=== PATIENT | female | born 1945 | race Caucasian/White ===

== ENCOUNTER 2016-04-15 16:45 | Observation (INO) ==
[2016-04-15] MEDS ORDERED: Ipratropium/Albuterol Neb 3 ML IH ONE (16:47)
--- NOTE | 2016-04-15 16:50 | Emergency Department Note ---
Disposition Clinical Impression: Wedge compression fracture of T8 vertebra Qualifiers: Encounter type: initial encounter Fracture type: closed Qualified Code(s): S22.060A - Wedge compression fracture of T7-T8 vertebra, initial encounter for closed fracture Disposition: Admitted As Inpatient Condition: Good Referrals: NO,PCP [Non-Partnered Physician] - Forms: ED Satisfaction Letter Time of Disposition: 19:43 Fall HPI - General Chief Complaint: ED Fall Stated Complaint: FALL Time Seen by Provider: 04/15/16 16:48 Source: patient, EMS Mode of arrival: EMS Limitations: no limitations Nursing Notes Reviewed: Yes Vital Signs Reviewed: Yes - History of Present Illness HPI Narrative: 70-year-old has history of Parkinson's who was getting in his van was up about 2 feet off the ground and fell backwards onto concrete. She gets severe back pain. No loss of consciousness. No shortness of breath. Patient does have a history of COPD oxygen was little bit low so he is placed on nasal cannula. 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 Fall From: from height (distance) (2 feet) Place Fall Occurred: street Loss of Consciousness: none Prolonged Down Time?: no Symptoms Prior to Fall: none - Related Data Previous Rx's Medication Instructions Recorded OxyCODONE/APAP 5/325 [Percocet 1 each PO Q6HR PRN #6 tablet 12/04/15 5/325] Allergies Allergy/AdvReac Type Severity Reaction Status Date / Time No Known Allergies Allergy Verified 12/04/15 19:16 Constitutional: Denies: fever, chills, weakness, weight change Eyes: Denies: eye pain, eye discharge, vision change ENT ED: Denies: ear pain, throat pain, dental pain, hearing loss, epistaxis, congestion, dysphagia Cardiovascular: Denies: chest pain, palpitations, dyspnea on exertion, edema, syncope Respiratory: Denies: cough, dyspnea, wheezes, hemoptysis, stridor Gastrointestinal: Denies: abdominal pain, nausea, vomiting, diarrhea, constipation, hematemesis, melena, hematochezia Genitourinary: Denies: dysuria, frequency, hematuria, discharge Musculoskeletal: Reports: back pain. Denies: neck pain, arthralgia, myalgia Integumentary: Denies: rash, abrasion, lesions Neurological: Denies: headache, weakness, numbness, paresthesias, confusion, abnormal gait, vertigo Psychiatric: Denies: anxiety, depression, suicidal thoughts, homicidal thoughts , auditory hallucinations, visual hallucinations Endocrine: Denies: fatigue Hematological/Lymphatic: Denies: easy bleeding, easy bruising Allergic/Immunologic: Denies: facial swelling, urticaria Fall PMH - Past Medical History Medical history: Reports: atrial fibrillation, COPD, CVA, diabetes, hyperlipidemia, hypertension, thyroid disease Surgical history: Reports: herniorrhaphy, orthopedic, other (back surgery), other (dental extraction) Psychiatric history: Reports: anxiety, depression - Social History Smoking Status: Never smoker Alcohol use: Reports: none Drug use: Reports: none Physical Exam - General Limitations: no limitations General appearance: alert, in no apparent distress - Head Head exam: atraumatic, normocephalic, normal inspection - Eye Eye exam: Present: normal appearance, PERRL, EOMI - ENT ENT exam: normal exam, normal oropharynx, mucous membranes moist - Neck Neck exam: Present: normal inspection, full ROM, trachea midline - Chest Chest inspection: Present: normal inspection, symmetric chest wall rise - Respiratory Respiratory exam: Present: wheezes - Cardiovascular Cardiovascular exam: Present: regular rate, normal rhythm, normal heart sounds - Abdominal Exam Abdominal exam: Present: soft, Non-Tender. Absent: tenderness, distention, guarding, rebound, rigidity - Expanded Lower Extremity Exam Neurovascular/Tendon exam: Absent: motor deficit, sensory deficit, tendon deficit Gait: not tested/not observed - Back Exam Back exam: Present: normal inspection, full ROM. Absent: tenderness - Neurological Exam Neurological exam: Present: alert, oriented X3 - Psychiatric Psychiatric exam: Present: normal affect, normal mood - Skin Skin exam: Present: warm, dry, intact, normal color Course - Reevaluation(s) Reevaluation #1: 70-year-old history of Parkinson's who is unsteady on his feet has had multiple falls in recent weeks felt today back onto his back. He's got an acute T8 compression fracture. He is not able to get up and get around. There is no retropulsion of fragments. He may require extended care facility. Time: 19:42 - Consultations Consultation #1: Discussed with demetrio Knight. Time: 19:41 Vital Signs Temperature 97.6 F 04/15/16 16:50 Pulse Rate 81 04/15/16 16:50 Respiratory Rate 20 04/15/16 16:50 Blood Pressure 140/80 04/15/16 16:50 O2 Sat by Pulse Oximetry 96 04/15/16 16:50 Temperature 97.6 F 04/15/16 16:50 Pulse Rate 84 04/15/16 19:19 Respiratory Rate 18 04/15/16 19:19 Blood Pressure 151/66 04/15/16 19:19 O2 Sat by Pulse Oximetry 94 L 04/15/16 19:19 Oxygen Delivery Oxygen Delivery Nasal Cannula Fall - Radiology Data Radiology results reviewed: Yes I reviewed the patient's radiology results. Cervical Spine CT 04/15/16 16:47 IMPRESSION: 1. No evidence of an acute cervical spine fracture. D/ / 04/15/2016 18:04:05 Baudilio Reynolds MD / matt Interpreting Provider: Baudilio Reynolds MD Head CT 04/15/16 16:47 IMPRESSION: No acute intracranial abnormality. D/ / Jamal Arellano MD / Jamal Arellano MD Interpreting Provider: Jamal Arellano MD Lumbar Spine CT 04/15/16 16:47 IMPRESSION: 1. No acute findings of the lumbar spine. 2. Mild degenerative disc disease as above. D/ / Alonso Shaw MD / Alonso Shaw MD Interpreting Provider: Alonso Shaw MD Thoracic Spine CT 04/15/16 16:47 IMPRESSION: 1. Acute T8 superior endplate fracture that extends out anteriorly through the T7-T8 osteophyte. No retropulsion of fracture fragments into the spinal canal. 2. Chronic T12 fracture with approximately 70% loss of vertebral body height. 3. Subacute posterior right 10th rib fracture. D/ / 04/15/2016 17:58:11 Baudilio Reynolds MD / matt Interpreting Provider: Baudilio Reynolds MD
[2016-04-15] MEDS ORDERED: Naloxone 0.4 MG/ML INJ IVP PRN (22:59)
--- NOTE | 2016-04-15 22:59 | Internal Med History&Physical ---
Date of Encounter: 04/15/16 Time of Encounter: 22:30 Assessment and Plan (1) Wedge compression fracture of T8 vertebra Current visit: Yes Status: Acute No obvious neurological deficits. Will obtain MRI of the thoracic spine. Consult orthopedics / Spine creative consultant for possible kyphoplasty. Opiates for pain relief. Rest Qualifiers: Encounter type: initial encounter Fracture type: closed Qualified Code(s) : S22.060A - Wedge compression fracture of T7-T8 vertebra, initial encounter for closed fracture (2) Atrial fibrillation Current visit: Yes Status: Chronic Rate controlled. Continue home meds, when verified Qualifiers: Atrial fibrillation type: chronic Qualified Code(s): I48.2 - Chronic atrial fibrillation (3) Chronic anticoagulation Current visit: Yes Status: Chronic On apixaban. Will hold, for possible intervention. (4) Parkinson disease Current visit: Yes Status: Chronic Continue home meds, after verified (5) Hypothyroidism Current visit: Yes Status: Chronic Continue synthroid at home dose Qualifiers: Hypothyroidism type: unspecified Qualified Code(s): E03.9 - Hypothyroidism , unspecified (6) ALEXANDER (obstructive sleep apnea) Current visit: Yes Status: Chronic Pt is non-compliant (7) Hypertension Current visit: Yes Status: Chronic Continue home meds Qualifiers: Hypertension type: essential hypertension Qualified Code(s): I10 - Essential (primary) hypertension (8) Diabetes mellitus Current visit: Yes Status: Chronic started sliding scale insulin Qualifiers: Diabetes mellitus type: type 2 Diabetes mellitus complication status: with unspecified complications 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 Fernandez is a 70 year old female with history of Parkinson's disease, atrial fibrillation on apixban (eliquis), COPD, CVA, diabetes, hyperlipidemia, hypertension, hypothyroidism and ALEXANDER - non compliant with CPAP, presented to the ER after a h/o fall with no LOC. Apparently she was getting in his van was up about 2 feet off the ground and fell backwards onto concrete. Reports severe mid thoracic pain, 10/10, and sharp, which is worse on deep breath. No radiation of pain. Denies any new neurologic deficits. Prior h/o urinary incontinence. No fecal incontinence. Denies chest pain, shortness of breath, abdominal pain. He was evaluated in the ER and was noted to have acute fracture of T8 vertebra. Admitted to the hospitalist service for further management. Past Med Surg Social Fam HX - Past Medical History Medical history: atrial fibrillation, COPD, CVA, diabetes, hyperlipidemia, hypertension, thyroid disease Psychiatric history: anxiety, depression - Past Surgical History Surgical History: herniorrhaphy, orthopedic, other, other - Social History Smoking Status: Never smoker Smokeless Tobacco Status: No Alcohol use: none Drug use: none Internal Medicine - H&P: Meds Apixaban [Eliquis] 5 mg PO BID 04/15/16 [History] Aspirin [Lo-Dose Aspirin EC] 162 mg PO DAILY 04/15/16 [History] Atorvastatin Calcium [Lipitor] 20 cap PO DAILY 04/15/16 [History] Bupropion HCl [Wellbutrin Xl] 300 cap PO DAILY 04/15/16 [History] Cyanocobalamin (B-12) [Vitamin B12] 1,000 cap PO QWEEK 04/15/16 [History] Diltiazem HCl [Diltiazem 24Hr ER] 300 cap PO DAILY 04/15/16 [History] Guaifenesin [Tab Tussin] 400 mg PO TID 04/15/16 [History] Guaifenesin [Tussin Mucus-Chest Congestion] 100 dropperful PO PRN PRN 04/15/16 [ History] Levothyroxine Sodium [Levothyroxine Sodium] 0.175 cap PO DAILY 04/15/16 [History ] Losartan [Cozaar] 25 cap PO DAILY 04/15/16 [History] Metformin [Glucophage] 500 mg PO BIDWM 04/15/16 [History] Mometasone Furoate [Asmanex] 220 cap ORAL RINSE BID 04/15/16 [History] Montelukast Sodium [Singulair] 10 cap PO DAILY 04/15/16 [History] Paroxetine HCl [Paroxetine] 40 cap PO DAILY 04/15/16 [History] Perphenazine [Perphenazine] 8 cap PO DAILY 04/15/16 [History] PredniSONE [Se] 5 mg PO DAILY 04/15/16 [History] Striverdi Respimat 60 aerosol PO DAILY 04/15/16 [History] Tiotropium [Spiriva] 1 cap PO DAILY 04/15/16 [History] Trazodone HCl [Trazodone HCl] 200 cap PO DAILY 04/15/16 [History] Trospium Chloride [Trospium Chloride] 20 cap PO DAILY 04/15/16 [History] Allergies No Known Allergies Allergy (Verified 12/04/15 19:16) All Systems PM: A 10-system review of systems was performed and is negative for pertinent findings except as documented above in the HPI. - Constitutional Vitals: Temp Pulse Resp BP Pulse Ox 98.8 F 75 20 171/82 93 L 04/15/16 21:50 04/15/16 21:50 04/15/16 21:50 04/15/16 21:50 04/15/16 22:48 Exam: General: Not in mild - moderate acute distress at the time of my evaluation HEENT: Oral mucosa is moist. No conjunctival palor or scleral icterus Neck: No obvious neck swellings Lungs: Clear to auscultation Cardiac: Regular rate and rhythm. No significant murmurs Abdomen: Obese, non tender. Bowel sounds present Neurological: Alert and oriented. Resting tremor in the right hand. No gross localizing deficits; No cranial nerve deficits. Psych: Not aggressive or agitated Extremities: Mild leg edema Skin: No generalized rash Internal Med - H&P Results - Labs CBC & Chem 7: 04/16/16 01:23 04/16/16 04:28 - EKG Data EKG comments: Telemetry shows A fib with rate of 100/min 04/16/16 08:14 - Impressions ITS Impressions Cervical Spine CT 04/15/16 16:47 IMPRESSION: 1. No evidence of an acute cervical spine fracture. D/ / 04/15/2016 18:04:05 Baudilio Reynolds MD / located within [facility] Interpreting Provider: Baudilio Reynolds MD Head CT 04/15/16 16:47 IMPRESSION: No acute intracranial abnormality. D/ / Jamal Arellano MD / Jamal Arellano MD Interpreting Provider: Jamal Arellano MD Lumbar Spine CT 04/15/16 16:47 IMPRESSION: 1. No acute findings of the lumbar spine. 2. Mild degenerative disc disease as above. D/ / Alonso Shaw MD / Alonso Shaw MD Interpreting Provider: Alonso Shaw MD Thoracic Spine CT 04/15/16 16:47 IMPRESSION: 1. Acute T8 superior endplate fracture that extends out anteriorly through the T7-T8 osteophyte. No retropulsion of fracture fragments into the spinal canal. 2. Chronic T12 fracture with approximately 70% loss of vertebral body height. 3. Subacute posterior right 10th rib fracture. D/ / 04/15/2016 17:58:11 [facility] MD [facility] Interpreting Provider: Baudilio Reynolds MD
[2016-04-15] MEDS ORDERED: *HR* Morphine 2 MG/ML SYRINGE IVP PRN (23:02)
[2016-04-15] MEDS: *HR* HYDROmorphone (PF) 1 MG/ML SYRINGE IVP PRN (23:12)
[2016-04-16] MEDS: *HR* HYDROmorphone (PF) 1 MG/ML SYRINGE IVP PRN ×6 (01:27→17:31)
[2016-04-16 01:30] LABS: Hematocrit 40.4 % (35.3-44.9); Hemoglobin 12.8 g/dL (11.5-15.4); Mean Corpuscular HGB Conc 31.7 g/dL (31.6-35.5); Mean Corpuscular Hemoglobin 30.7 pg (28.0-33.3); Mean Corpuscular Volume 96.9 fL (83.0-100.0); Platelet Count 279 K/mcL (140-400); Red Blood Count 4.17 M/mcL (3.82-4.97); Red Cell Distribution Width 15.2 % (11.5-14.5)
[2016-04-16 01:36] LABS: INR 1.3
[2016-04-16] MEDS ORDERED: Dextrose Gel 15 GM PO PRN ×2 (04:59)
[2016-04-16] MEDS ORDERED: D5% in Water 1,000 ML IV PRN (04:59)
[2016-04-16] MEDS ORDERED: *HR* Dextrose 50 % in Water (Syg) 50 ML SYRINGE IVP PRN (04:59)
[2016-04-16 05:15] LABS: Alanine Aminotransferase 25 Units/L (0-55); Albumin 3.3 g/dL (3.5-5.0); Alkaline Phosphatase 82 Units/L (38-126); Aspartate Amino Transferase 32 Units/L (5-34); BUN/Creatinine Ratio 20 (6-26); Bilirubin,Total 0.3 mg/dL (0.2-1.2); Blood Urea Nitrogen 19 mg/dL (7-20); Calcium 9.8 mg/dL (8.6-10.8); Carbon Dioxide 26 mEq/L (19-29); Chloride 100 mEq/L (98-109); Globulin 3.4 g/dL (2.4-3.5); Glucose 139 mg/dL (70-99); Magnesium 1.7 mg/dL (1.6-2.6); Osmolality,Calculated 287 (280-300); Sodium 136 mEq/L (136-145); Total Protein 6.7 g/dL (6.0-8.3); eGFR For African Americans > 60 (> 60); eGFR For Non-African Americans 58 (> 60)
[2016-04-16 05:16] LABS: Potassium 4.4 mEq/L (3.5-4.5)
[2016-04-16] MEDS: Insulin LISPRO 300 UNITS/3 ML VIAL SQ SCH ×4 (06:47→21:46)
--- NOTE | 2016-04-16 15:01 | Internal Med Progress Note ---
Date of Encounter: 04/16/16 Time of Encounter: 14:59 - Assessment and plan (1) Wedge compression fracture of T8 vertebra Current Visit: Yes Status: Acute Assessment and plan: Sustained a mechanical fall and CT/MRI thoracic spine show acute compression fracture of T8 superior endplate and chronic T12 compression fracture. Will consult spine surgery for possible kyphoplasty. Pain control with when necessary IV Dilaudid. Supportive care and fall precautions. Patient is noted to have leukocytosis, likely reactive from fall in severe pain. COPD-Not noted to be in acute exacerbation. Continue when necessary bronchodilators and supplemental oxygen. Qualifiers: Qualified Code(s): S22.060A - Wedge compression fracture of T7-T8 vertebra, initial encounter for closed fracture (2) Atrial fibrillation Current Visit: Yes Status: Chronic Assessment and plan: Currently rate controlled. Hold long-term anticoagulation with Eliquis in anticipation of possible spine surgery. Qualifiers: Qualified Code(s): I48.2 - Chronic atrial fibrillation (3) Diabetes mellitus Current Visit: Yes Status: Chronic Assessment and plan: Accu-Chek blood glucose monitoring with sliding scale insulin. Diabetic diet. Check hemoglobin A1c. Qualifiers: Qualified Code(s): E11.8 - Type 2 diabetes mellitus with unspecified complications (4) Hypertension Current Visit: Yes Status: Chronic Qualifiers: Qualified Code(s): I10 - Essential (primary) hypertension (5) Hypothyroidism Current Visit: Yes Status: Chronic Assessment and plan: Resume levothyroxine. Qualifiers: Qualified Code(s): E03.9 - Hypothyroidism, unspecified (6) ALEXANDER (obstructive sleep apnea) Current Visit: Yes Status: Chronic Assessment and plan: Noncompliant with CPAP at home and refuses for CPAP in the hospital. Continue supplemental oxygen as needed. (7) Parkinson disease Current Visit: Yes Status: Chronic - Subjective Interval history: Reports back pain, requesting for pain medication. Unable to move because of her pain. No nausea, vomiting or shortness of breath. Refuses any kind of operative procedure on her back. - Constitutional Vitals: Temp Pulse Resp BP Pulse Ox 97.8 F 78 18 155/80 93 L 04/16/16 10:59 04/16/16 10:59 04/16/16 10:59 04/16/16 10:59 04/16/16 10:59 General appearance: Present: A&O X 3, morbidly obese, answers questions appropriately - Respiratory Respiratory exam: Present: CTAB (Anterolaterally). Absent: accessory muscle use , rales, rhonchi, wheezes - Cardiovascular Cardiovascular exam: Present: RRR, +S1, +S2. Absent: diastolic murmur, gallop, rubs, systolic murmur - GI/Abdominal GI/Abdominal exam: Present: normal bowel sounds, soft (Obese and nontender), no peritoneal signs. Absent: distended, tenderness - Extremities Exam Extremities exam: Present: normal inspection (Left anterior leg wound with serous discharge), warm, radial pulses palpable and symetrical. Absent: calf tenderness, cyanotic, pedal edema - Neurological Exam Neurological exam: Present: CN II-XII intact, oriented X3, no focal deficits. Absent: pronater drift, facial droop, speech deficit - Skin Skin exam: Present: dry, intact Internal Medicine: Result - Labs CBC & Chem 7: 04/17/16 06:01 04/17/16 06:01 Labs: Short CBC 04/16/16 Range/Units 01:23 WBC 15.5 H (4.3-11.1) K/mcL Hgb 12.8 (11.5-15.4) g/dL Hct 40.4 (35.3-44.9) % Plt Count 279 (140-400) K/mcL BMP 04/16/16 04:28 Sodium 136 Potassium 4.4 Chloride 100 Carbon Dioxide 26 BUN 19 Creatinine 0.95 Glucose 139 H Calcium 9.8 Liver Function 04/16/16 Range/Units 04:28 Total Bilirubin 0.3 (0.2-1.2) mg/dL AST 32 (5-34) Units/L ALT 25 (0-55) Units/L Alkaline Phosphatase 82 (38-126) Units/L Albumin 3.3 L (3.5-5.0) g/dL - ABG Interpretation ABG results: PT/INR, D-dimer PT 14.0 Seconds (9.4-12.1) H 04/16/16 01:23 - VTE Reasons for not Prescribing Prophylaxis: Not indicated-Anticoagulated or INR therapeutic Consult Discharge Plan - Plan Referrals: Keegan Ayers MD [Primary Care Provider] -
[2016-04-16] MEDS: Silvasorb 44.4 ML TUBE TP SCH (15:12)
[2016-04-16] MEDS ORDERED: *HR* Metoprolol 5 MG/5 ML VIAL IVP PRN (20:32)
[2016-04-16] MEDS: *HR* Heparin 5,000 UNIT/ML VIAL SQ SCH (21:47)
[2016-04-16] MEDS: *HR* HYDROmorphone 2 MG/ML SYRINGE IVP PRN (22:36)
[2016-04-17] MEDS: *HR* HYDROmorphone 2 MG/ML SYRINGE IVP PRN (04:51)
[2016-04-17] MEDS: *HR* Heparin 5,000 UNIT/ML VIAL SQ SCH ×3 (05:55→23:20)
[2016-04-17 06:27] LABS: Basophils # 0.1 K/mcL (0.0-0.2); Basophils % 0.5 %; Eosinophils # 0.8 K/mcL (0.0-0.6); Hematocrit 40.9 % (35.3-44.9); Immature Granulocytes % 0.9 % (0-4); Lymphocytes # 1.7 K/mcL (0.6-4.6); Lymphocytes % 11.1 %; Mean Corpuscular HGB Conc 31.8 g/dL (31.6-35.5); Mean Corpuscular Hemoglobin 30.7 pg (28.0-33.3); Mean Corpuscular Volume 96.7 fL (83.0-100.0); Mean Platelet Volume 10.3 fL (9.4-12.4); Monocytes # 1.8 K/mcL (0.0-1.3); Monocytes % 11.8 %; Neutrophils # 10.7 K/mcL (1.6-8.9); Platelet Count 306 K/mcL (140-400); Red Blood Count 4.23 M/mcL (3.82-4.97); Red Cell Distribution Width 15.1 % (11.5-14.5); Segmented Neutrophils % 70.7 %
[2016-04-17 06:38] LABS: BUN/Creatinine Ratio 23 (6-26); Blood Urea Nitrogen 19 mg/dL (7-20); Calcium 9.7 mg/dL (8.6-10.8); Carbon Dioxide 26 mEq/L (19-29); Chloride 98 mEq/L (98-109); Glucose 147 mg/dL (70-99); Osmolality,Calculated 283 (280-300); Potassium 4.8 mEq/L (3.5-4.5); Sodium 134 mEq/L (136-145); eGFR For African Americans > 60 (> 60); eGFR For Non-African Americans > 60 (> 60)
[2016-04-17] MEDS: Insulin LISPRO 300 UNITS/3 ML VIAL SQ SCH ×4 (09:46→20:57)
[2016-04-17] MEDS: *HR* HYDROmorphone (PF) 1 MG/ML SYRINGE IVP PRN ×2 (12:07→16:52)
--- NOTE | 2016-04-17 14:54 | Internal Med Progress Note ---
Date of Encounter: 04/17/16 Time of Encounter: 14:30 - Assessment and plan (1) Wedge compression fracture of T8 vertebra Current Visit: Yes Status: Acute Assessment and plan: Sustained a mechanical fall and CT/MRI thoracic spine show acute compression fracture of T8 superior endplate and chronic T12 compression fracture. Awaiting consult from spine surgery for possible kyphoplasty. However, patient continues to be reluctant for any kind of surgical intervention. Continue Pain control with when necessary IV Dilaudid, will add oral Percocet. Supportive care and fall precautions. Patient is noted to have leukocytosis, likely reactive from fall in severe pain. COPD- Not noted to be in acute exacerbation. Resume home medications-inhaled corticosteroids, Spiriva and Singulair. Continue when necessary bronchodilators and supplemental oxygen. Qualifiers: Qualified Code(s): S22.060A - Wedge compression fracture of T7-T8 vertebra, initial encounter for closed fracture (2) Atrial fibrillation Current Visit: Yes Status: Chronic Assessment and plan: Currently rate controlled. Restart calcium channel rashid. Hold long-term anticoagulation with Eliquis in anticipation of possible spine surgery. Qualifiers: Qualified Code(s): I48.2 - Chronic atrial fibrillation (3) Diabetes mellitus Current Visit: Yes Status: Chronic Assessment and plan: Accu-Chek blood glucose monitoring with sliding scale insulin. Blood sugars noted to be well controlled. Diabetic diet. Check hemoglobin A1c. Qualifiers: Qualified Code(s): E11.8 - Type 2 diabetes mellitus with unspecified complications (4) Hypertension Current Visit: Yes Status: Chronic Qualifiers: Qualified Code(s): I10 - Essential (primary) hypertension (5) Hypothyroidism Current Visit: Yes Status: Chronic Qualifiers: Qualified Code(s): E03.9 - Hypothyroidism, unspecified (6) ALEXANDER (obstructive sleep apnea) Current Visit: Yes Status: Chronic (7) Parkinson disease Current Visit: Yes Status: Chronic - Subjective Interval history: Able to sit up in chair today. Reports ongoing back pain, controlled with IV pain medications. Also reports some upper abdominal pain with no nausea, vomiting, diarrhea. - Constitutional Vitals: Temp Pulse Resp BP Pulse Ox 98.3 F 75 18 163/84 93 L 04/17/16 11:17 04/17/16 11:17 04/17/16 11:17 04/17/16 11:04/17/16 11:17 General appearance: Present: A&O X 3, morbidly obese, answers questions appropriately - Respiratory Respiratory exam: Present: wheezes (Bilateral posterior basal wheezing). Absent : accessory muscle use, rales, rhonchi - Cardiovascular Cardiovascular exam: Present: RRR, +S1, +S2. Absent: diastolic murmur, gallop, rubs, systolic murmur - GI/Abdominal GI/Abdominal exam: Present: normal bowel sounds, soft (Very obese, nontender ), no peritoneal signs. Absent: distended, tenderness Internal Medicine: Result - Labs CBC & Chem 7: 04/17/16 06:01 04/17/16 06:01 Labs: Short CBC 04/17/16 Range/Units 06:01 WBC 15.2 H (4.3-11.1) K/mcL Hgb 13.0 (11.5-15.4) g/dL Hct 40.9 (35.3-44.9) % Plt Count 306 (140-400) K/mcL Neutrophils # 10.7 H (1.6-8.9) K/mcL BMP 04/17/16 06:01 Sodium 134 L Potassium 4.8 H Chloride 98 Carbon Dioxide 26 BUN 19 Creatinine 0.84 Glucose 147 H Calcium 9.7 - ABG Interpretation ABG results: PT/INR, D-dimer PT 14.0 Seconds (9.4-12.1) H 04/16/16 01:23 - Impressions Impressions Thoracic Spine MRI 04/16/16 07:55 IMPRESSION: Acute T8 superior endplate fracture. No significant associated loss of vertebral body height. No retropulsion of fracture fragments. Unchanged, chronic T12 compression fracture with severe, greater than 70% loss of vertebral body height and 2 mm retropulsion of fracture fragments. Mild degenerative changes of the spine, worse at T8-T9, without spinal canal stenosis. D/ / 04/16/2016 17:03:23 Joe Pabon MD / [facility] Interpreting Provider: Joe Pabon MD - VTE Reasons for not Prescribing Prophylaxis: Not indicated-Anticoagulated or INR therapeutic Consult Discharge Plan - Plan Referrals: antoni,Keegan Terrazas MD [Primary Care Provider] -
[2016-04-17] MEDS ORDERED: Albuterol 2.5 MG/3 ML NEBULIZER IH PRN (14:57)
[2016-04-17] MEDS: Silvasorb 44.4 ML TUBE TP SCH (16:30)
--- NOTE | 2016-04-17 17:40 | Pain Management Consultation ---
Date of Encounter: 04/17/16 Time of Encounter: 17:38 History of Present Illness Chief complaint: back pain HPI: Ms. Fernandez is a 70 year old female suffering with deep aching pain in the middle back after a fall from standing last Friday. Patient fell off of a small step while stepping into a bus. Noticed straight away onset of pain in the middle back, does not radiate to front. Sharp in nature, 12/10. She did not have pain prior to falling. Denies blacking out. Past Med Surg Social Fam HX - Past Medical History Medical history: atrial fibrillation, COPD, CVA, diabetes, hyperlipidemia, hypertension, thyroid disease Psychiatric history: anxiety, depression - Past Surgical History Surgical History: herniorrhaphy, orthopedic, other, other - Social History Smoking Status: Never smoker Smokeless Tobacco Status: No Alcohol use: none Drug use: none Medications and Allergies Apixaban [Eliquis] 5 mg PO BID 04/15/16 [History] Aspirin [Lo-Dose Aspirin EC] 162 mg PO DAILY 04/15/16 [History] Atorvastatin Calcium [Lipitor] 20 cap PO DAILY 04/15/16 [History] Bupropion HCl [Wellbutrin Xl] 300 cap PO DAILY 04/15/16 [History] Cyanocobalamin (B-12) [Vitamin B12] 1,000 cap PO QWEEK 04/15/16 [History] Diltiazem HCl [Diltiazem 24Hr ER] 300 cap PO DAILY 04/15/16 [History] Guaifenesin [Tab Tussin] 400 mg PO TID 04/15/16 [History] Guaifenesin [Tussin Mucus-Chest Congestion] 100 dropperful PO PRN PRN 04/15/16 [ History] Levothyroxine Sodium [Levothyroxine Sodium] 0.175 cap PO DAILY 04/15/16 [History ] Losartan [Cozaar] 25 cap PO DAILY 04/15/16 [History] Metformin [Glucophage] 500 mg PO BIDWM 04/15/16 [History] Mometasone Furoate [Asmanex] 220 cap ORAL RINSE BID 04/15/16 [History] Montelukast Sodium [Singulair] 10 cap PO DAILY 04/15/16 [History] Paroxetine HCl [Paroxetine] 40 cap PO DAILY 04/15/16 [History] Perphenazine [Perphenazine] 8 cap PO DAILY 04/15/16 [History] PredniSONE [Se] 5 mg PO DAILY 04/15/16 [History] Striverdi Respimat 60 aerosol PO DAILY 04/15/16 [History] Tiotropium [Spiriva] 1 cap PO DAILY 04/15/16 [History] Trazodone HCl [Trazodone HCl] 200 cap PO DAILY 04/15/16 [History] Trospium Chloride [Trospium Chloride] 20 cap PO DAILY 04/15/16 [History] Allergies No Known Allergies Allergy (Verified 12/04/15 19:16) Review of Systems - Constitutional Constitutional ROS IM: no photophobia, no phonophobia, no daytime sleepiness, no fever(s), no stops breathing during sleep - EENT Nose, mouth and throat: no headache(s), no neck pain, no neck trauma - Cardiovascular Cardiovascular ROS: no chest pain, no leg edema, no lightheadedness - Respiratory Respiratory: no pain on inspiration, no pain with cough - Gastrointestinal Gastrointestinal: no abdominal pain, no constipation, no diarrhea, no heartburn - Genitourinary Genitourinary ROS: no difficulty urinating, no flank pain, no urinary hesitancy - Musculoskeletal Musculoskeletal ROS: no muscle weakness, no numbness, no radiating pain into limb, no tingling - Integumentary Integumentary: no erythema, no lesions, no swelling - Neurological Neurological ROS: no abnormal gait, no behavioral changes, no focal weakness, no radicular pain - Psychiatric Psychiatric general: no anxiety, no confusion, no depression - Hematologic/Lymphatic Hematologic/Lymphatic pediatric: no easy bleeding, no easy bruising Physical Exam Initial Vital Signs Temp Pulse Resp BP Pulse Ox 97.6 F 81 20 140/80 96 04/15/16 16:50 04/15/16 16:50 04/15/16 16:50 04/15/16 16:50 04/15/16 16:50 - General physical appearance General physical appearance: awake & oriented, no distress, no pain - Eyes Eye exam: normal ocular movement - ENT normal pinna, normal nares - Neck no masses - Respiratory normal respiratory effort - Cardiovascular Cardiovascular exam: Present: NR, irregular rhythm - Abdomen Abdomen: soft, non tender, bowel sounds - Integumentary Integumentary general surgery: no rash - Neurologic normal coordination - Musculoskeletal Musculoskeletal: other (tender to percussion over mid thoracic neuraxis. Spinous process tender at T8.), normal gait, normal posture - Psychiatric Psychiatric: oriented to time, oriented to person, oriented to place - Additional Findings tender to percussion over mid thoracic neuraxis. Spinous process tender at T8. Results - Labs 04/17/16 06:01 04/17/16 06:01 Abnormal lab results WBC 15.2 K/mcL (4.3-11.1) H 04/17/16 06:01 RDW 15.1 % (11.5-14.5) H 04/17/16 06:01 Neutrophils # 10.7 K/mcL (1.6-8.9) H 04/17/16 06:01 Monocytes # 1.8 K/mcL (0.0-1.3) H 04/17/16 06:01 Eosinophils # 0.8 K/mcL (0.0-0.6) H 04/17/16 06:01 PT 14.0 Seconds (9.4-12.1) H 04/16/16 01:23 Sodium 134 mEq/L (136-145) L 04/17/16 06:01 Potassium 4.8 mEq/L (3.5-4.5) H 04/17/16 06:01 Glucose 147 mg/dL (70-99) H 04/17/16 06:01 POC Glucose 128 (58-89) H 04/16/16 16:51 Albumin 3.3 g/dL (3.5-5.0) L 04/16/16 04:28 Albumin/Globulin Ratio 1.0 (1.1-2.2) L 04/16/16 04:28 Diabetes panel 04/17/16 Range/Units 06:01 Sodium 134 L (136-145) mEq/L Potassium 4.8 H (3.5-4.5) mEq/L Chloride 98 (98-109) mEq/L Carbon Dioxide 26 (19-29) mEq/L BUN 19 (7-20) mg/dL Creatinine 0.84 (0.57-1.11) mg/dL Glucose 147 H (70-99) mg/dL Calcium 9.7 (8.6-10.8) mg/dL Calcium panel 02/15/17 Range/Units 06:01 Calcium 9.7 (8.6-10.8) mg/dL Pituitary panel 04/17/16 Range/Units 06:01 Sodium 134 L (136-145) mEq/L Potassium 4.8 H (3.5-4.5) mEq/L Chloride 98 (98-109) mEq/L Carbon Dioxide 26 (19-29) mEq/L BUN 19 (7-20) mg/dL Creatinine 0.84 (0.57-1.11) mg/dL Glucose 147 H (70-99) mg/dL Calcium 9.7 (8.6-10.8) mg/dL Adrenal panel 04/17/16 Range/Units 06:01 Sodium 134 L (136-145) mEq/L Potassium 4.8 H (3.5-4.5) mEq/L Chloride 98 (98-109) mEq/L Carbon Dioxide 26 (19-29) mEq/L BUN 19 (7-20) mg/dL Creatinine 0.84 (0.57-1.11) mg/dL Glucose 147 H (70-99) mg/dL Calcium 9.7 (8.6-10.8) mg/dL All other labs normal. - VTE Reasons for not Prescribing Prophylaxis: Not indicated-Anticoagulated or INR therapeutic Consult Discharge Plan - Plan Additional Instructions: Assessment: T8 superior endplate compression fracture. Plan: 1. The patient currently has an elevated white blood cell count. The INR is also slightly elevated. These things should be resolved prior to spine surgery. 2. The patient could be discharged to rehabilitation as of now. 3. She should follow up with me in the office either at the end of this week or the beginning of next week. She can be added on to my schedule. 4. I discussed the risks and benefits of kyphoplasty repair of the T8 compression fracture. Her power of employment law attorney was in the room. The patient is amenable to surgery, but the issues noted above must be corrected or at the very least understood better prior to surgery. I will look over her records and follow-up with her in the office in a few days. Referrals: Keegan Ayers MD [Primary Care Provider] - Assessment & Plan - Diet and Activity Activity: ambulate only with your walker - Discharge Instructions Follow Up With: Keegan Ayers MD [Primary Care Provider] - - Patient Status Condition: Good
[2016-04-17] MEDS: traZODone 50 MG TABLET PO SCH (20:38)
[2016-04-17] MEDS: Sennosides/Docusate Sodium TABLET PO SCH (20:38)
[2016-04-17] MEDS: *HR* OxyCODONE/APAP 5/325 TABLET PO PRN (20:56)
[2016-04-17] MEDS: Beclomethasone 80mcg MDI IH SCH (21:23)
[2016-04-18 00:51] LABS: Hemoglobin A1C 6.6 %
[2016-04-18] MEDS: *HR* HYDROmorphone (PF) 1 MG/ML SYRINGE IVP PRN ×4 (03:39→19:55)
[2016-04-18 05:45] LABS: ABG Base Excess 7.1 mEq/L (-2.0 to 3.0); ABG HCO3 34.8 mEQ/L (21-27); ABG Oxygen Saturation 93 % (95-98); ABG PCO2 63 mmHg (35-45); ABG PH 7.35 pH Units (7.32-7.45); ABG PO2 69 mmHg (85-104); ABG TCO2 36.7 mEq/L (20-26)
[2016-04-18 05:47] LABS: Blood Gas FiO2 34 %
[2016-04-18] MEDS: Tiotropium 18 MCG inhalation IH SCH (08:30)
[2016-04-18] MEDS: Beclomethasone 80mcg MDI IH SCH ×2 (08:31→21:56)
[2016-04-18] MEDS: *HR* Heparin 5,000 UNIT/ML VIAL SQ SCH ×3 (08:47→22:00)
[2016-04-18] MEDS: Insulin LISPRO 300 UNITS/3 ML VIAL SQ SCH ×4 (08:48→19:54)
[2016-04-18] MEDS: BuPROPion XL (24 HR) 150 MG TABLET PO SCH (08:49)
[2016-04-18] MEDS: Diltiazem CD (24hr) 300 MG CAPSULE PO SCH (08:49)
[2016-04-18] MEDS: Sennosides/Docusate Sodium TABLET PO SCH ×2 (08:49→19:55)
[2016-04-18] MEDS: Silvasorb 44.4 ML TUBE TP SCH (08:53)
[2016-04-18] MEDS: *HR* OxyCODONE/APAP 5/325 TABLET PO PRN (08:57)
[2016-04-18 10:02] LABS: Basophils # 0.1 K/mcL (0.0-0.2); Basophils % 0.8 %; Eosinophils # 0.7 K/mcL (0.0-0.6); Eosinophils % 5.6 %; Hematocrit 39.2 % (35.3-44.9); Hemoglobin 12.8 g/dL (11.5-15.4); Immature Granulocytes % 2.1 % (0-4); Lymphocytes # 1.7 K/mcL (0.6-4.6); Lymphocytes % 12.5 %; Mean Corpuscular HGB Conc 32.7 g/dL (31.6-35.5); Mean Corpuscular Hemoglobin 31.1 pg (28.0-33.3); Mean Corpuscular Volume 95.4 fL (83.0-100.0); Mean Platelet Volume 10.5 fL (9.4-12.4); Monocytes # 1.5 K/mcL (0.0-1.3); Monocytes % 11.5 %; Platelet Count 284 K/mcL (140-400); Red Blood Count 4.11 M/mcL (3.82-4.97); Red Cell Distribution Width 14.9 % (11.5-14.5); Segmented Neutrophils % 67.5 %
--- NOTE | 2016-04-18 14:38 | Internal Med Progress Note ---
Date of Encounter: 04/18/16 Time of Encounter: 14:37 - Assessment and plan (1) Wedge compression fracture of T8 vertebra Current Visit: Yes Status: Acute Assessment and plan: Sustained a mechanical fall and CT/MRI thoracic spine show acute compression fracture of T8 superior endplate and chronic T12 compression fracture. Spine surgery consult appreciated, recommend to f/up as outpatient within 1 week to reassess patient for possible kyphoplasty. Continue Pain control with when necessary IV Dilaudid, and oral Percocet. Supportive care and fall precautions. Patient is noted to have leukocytosis, likely reactive from fall in severe pain, improving now. Pending PT/OT evaluation. Spouse reports cannot take patient home as she cannot help her with transfers, etc. workforce services representative consult for discharge planning. COPD- Not noted to be in acute exacerbation. Resume home medications-inhaled corticosteroids, Spiriva and Singulair. Continue when necessary bronchodilators and supplemental oxygen. Qualifiers: Qualified Code(s): S22.060A - Wedge compression fracture of T7-T8 vertebra, initial encounter for closed fracture (2) Atrial fibrillation Current Visit: Yes Status: Chronic Assessment and plan: Currently rate controlled. Continue calcium channel rashid. Restart Eliquis for now; Qualifiers: Qualified Code(s): I48.2 - Chronic atrial fibrillation (3) Diabetes mellitus Current Visit: Yes Status: Chronic Qualifiers: Qualified Code(s): E11.8 - Type 2 diabetes mellitus with unspecified complications (4) Hypertension Current Visit: Yes Status: Chronic Qualifiers: Qualified Code(s): I10 - Essential (primary) hypertension (5) Hypothyroidism Current Visit: Yes Status: Chronic Assessment and plan: Resume levothyroxine. Qualifiers: Qualified Code(s): E03.9 - Hypothyroidism, unspecified (6) ALEXANDER (obstructive sleep apnea) Current Visit: Yes Status: Chronic Assessment and plan: Noncompliant with CPAP at home and refuses for CPAP in the hospital. Continue supplemental oxygen as needed. (7) Parkinson disease Current Visit: Yes Status: Chronic - Subjective Interval history: Reports no new complaints; still has a lot of back pain; awaiting PT evaluation and discharge planning; - Constitutional Vitals: Temp Pulse Resp BP Pulse Ox 98.0 F 95 16 144/76 92 L 04/18/16 06:54 04/18/16 06:54 04/18/16 08:35 04/18/16 06:54 04/18/16 09:15 General appearance: Present: A&O X 3, morbidly obese, answers questions appropriately - Respiratory Respiratory exam: Present: CTAB, wheezes (mild intermittent rhonchi B/L). Absent: accessory muscle use, rales, rhonchi - Cardiovascular Cardiovascular exam: Present: RRR, +S1, +S2. Absent: diastolic murmur, gallop, rubs, systolic murmur Internal Medicine: Result - Labs CBC & Chem 7: 04/18/16 09:33 04/17/16 06:01 Labs: Short CBC 04/18/16 Range/Units 09:33 WBC 13.3 H (4.3-11.1) K/mcL Hgb 12.8 (11.5-15.4) g/dL Hct 39.2 (35.3-44.9) % Plt Count 284 (140-400) K/mcL Neutrophils # 9.0 H (1.6-8.9) K/mcL - ABG Interpretation ABG results: ABG ABG pH 7.35 pH Units (7.32-7.45) 04/18/16 05:30 ABG pCO2 63 mmHg (35-45) H 04/18/16 05:30 ABG pO2 69 mmHg (85-104) L 04/18/16 05:30 ABG O2 Saturation 93 % (95-98) L 04/18/16 05:30 PT/INR, D-dimer PT 14.0 Seconds (9.4-12.1) H 04/16/16 01:23 - Impressions Impressions Chest X-Ray 04/18/16 04:19 IMPRESSION: No evidence of acute disease. D/ / Alvin Alvarado MD / Alvin Alvarado MD Interpreting Provider: Alvin Alvarado MD - VTE Reasons for not Prescribing Prophylaxis: Not indicated-Anticoagulated or INR therapeutic Consult Discharge Plan - Plan Additional Instructions: Assessment: T8 superior endplate compression fracture. Plan: 1. The patient currently has an elevated white blood cell count. The INR is also slightly elevated. These things should be resolved prior to spine surgery. 2. The patient could be discharged to rehabilitation as of now. 3. She should follow up with me in the office either at the end of this week or the beginning of next week. She can be added on to my schedule. 4. I discussed the risks and benefits of kyphoplasty repair of the T8 compression fracture. Her power of orthopedic shoe maker was in the room. The patient is amenable to surgery, but the issues noted above must be corrected or at the very least understood better prior to surgery. I will look over her records and follow-up with her in the office in a few days. Referrals: [facility] – [place],Keegan Terrazas MD [Primary Care Provider] -
[2016-04-18] MEDS: traZODone 50 MG TABLET PO SCH (19:55)
--- NOTE | 2016-04-18 20:02 | Electrocardiograph Report ---
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
[2016-04-19] MEDS: *HR* HYDROmorphone (PF) 1 MG/ML SYRINGE IVP PRN ×2 (05:17→09:44)
[2016-04-19] MEDS: Beclomethasone 80mcg MDI IH SCH (07:52)
[2016-04-19] MEDS: Tiotropium 18 MCG inhalation IH SCH (07:53)
[2016-04-19] MEDS: Diltiazem CD (24hr) 300 MG CAPSULE PO SCH (09:22)
[2016-04-19] MEDS: Insulin LISPRO 300 UNITS/3 ML VIAL SQ SCH ×3 (09:22→19:41)
[2016-04-19] MEDS: *HR* Heparin 5,000 UNIT/ML VIAL SQ SCH ×2 (09:22→15:50)
[2016-04-19] MEDS: BuPROPion XL (24 HR) 150 MG TABLET PO SCH (09:23)
[2016-04-19] MEDS: Sennosides/Docusate Sodium TABLET PO SCH (09:23)
[2016-04-19] MEDS: Silvasorb 44.4 ML TUBE TP SCH (09:51)
[2016-04-19 13:08] LABS: Basophils # 0.1 K/mcL (0.0-0.2); Basophils % 0.5 %; Eosinophils # 0.6 K/mcL (0.0-0.6); Hematocrit 41.8 % (35.3-44.9); Hemoglobin 13.3 g/dL (11.5-15.4); Immature Granulocytes % 0.8 % (0-4); Lymphocytes # 2.1 K/mcL (0.6-4.6); Lymphocytes % 14.3 %; Mean Corpuscular HGB Conc 31.8 g/dL (31.6-35.5); Mean Corpuscular Hemoglobin 30.6 pg (28.0-33.3); Mean Corpuscular Volume 96.3 fL (83.0-100.0); Mean Platelet Volume 10.1 fL (9.4-12.4); Monocytes # 1.6 K/mcL (0.0-1.3); Neutrophils # 10.2 K/mcL (1.6-8.9); Platelet Count 302 K/mcL (140-400); Red Blood Count 4.34 M/mcL (3.82-4.97); Red Cell Distribution Width 14.8 % (11.5-14.5); Segmented Neutrophils % 69.4 %
[2016-04-19 14:07] LABS: BUN/Creatinine Ratio 21 (6-26); Blood Urea Nitrogen 17 mg/dL (7-20); Calcium 10.1 mg/dL (8.6-10.8); Carbon Dioxide 27 mEq/L (19-29); Chloride 99 mEq/L (98-109); Glucose 138 mg/dL (70-99); Lipase 15 Units/L (8-78); Osmolality,Calculated 288 (280-300); Potassium 4.7 mEq/L (3.5-4.5); Sodium 137 mEq/L (136-145); eGFR For African Americans > 60 (> 60); eGFR For Non-African Americans > 60 (> 60)
[2016-04-19 15:05] VITALS: BP 136/75
--- NOTE | 2016-04-19 16:59 | Discharge Summary ---
Date of Encounter: 04/19/16 Time of Encounter: 15:00 - Discharge Diagnosis (1) Wedge compression fracture of T8 vertebra Priority: Primary Status: Acute Qualifiers: Qualified Code(s): S22.060A - Wedge compression fracture of T7-T8 vertebra, initial encounter for closed fracture (2) Atrial fibrillation Priority: Secondary Status: Chronic Qualifiers: Qualified Code(s): I48.2 - Chronic atrial fibrillation (3) Diabetes mellitus Priority: Secondary Status: Chronic Qualifiers: Qualified Code(s): E11.8 - Type 2 diabetes mellitus with unspecified complications (4) Hypertension Priority: Secondary Status: Chronic Qualifiers: Qualified Code(s): I10 - Essential (primary) hypertension (5) Hypothyroidism Priority: Secondary Status: Chronic Qualifiers: Qualified Code(s): E03.9 - Hypothyroidism, unspecified (6) ALEXANDER (obstructive sleep apnea) Priority: Secondary Status: Chronic (7) Parkinson disease Priority: Secondary Status: Chronic - Discharge Medications Prescriptions: OxyCODONE/APAP 5/325 [Percocet 5/325 MG] 2 each PO Q6HR PRN #20 tablet PRN Reason: Pain Sennosides/Docusate Sodium [Senna Plus] 1 each PO BID #20 tablet Home Medications: Apixaban [Eliquis] 5 mg PO BID 04/15/16 [History] Aspirin [Lo-Dose Aspirin EC] 162 mg PO DAILY 04/15/16 [History] Atorvastatin Calcium [Lipitor] 20 cap PO DAILY 04/15/16 [History] Bupropion HCl [Wellbutrin Xl] 300 cap PO DAILY 04/15/16 [History] Cyanocobalamin (B-12) [Vitamin B12] 1,000 cap PO QWEEK 04/15/16 [History] Diltiazem HCl [Diltiazem 24Hr ER] 300 cap PO DAILY 04/15/16 [History] Guaifenesin [Tab Tussin] 400 mg PO TID 04/15/16 [History] Guaifenesin [Tussin Mucus-Chest Congestion] 100 dropperful PO PRN PRN 04/15/16 [ History] Levothyroxine Sodium 0.175 cap PO DAILY 04/15/16 [History] Losartan [Cozaar] 25 cap PO DAILY 04/15/16 [History] Metformin [Glucophage] 500 mg PO BIDWM 04/15/16 [History] Mometasone Furoate [Asmanex] 220 cap ORAL RINSE BID 04/15/16 [History] Montelukast Sodium [Singulair] 10 cap PO DAILY 04/15/16 [History] Paroxetine HCl [Paroxetine] 40 cap PO DAILY 04/15/16 [History] Perphenazine 8 cap PO DAILY 04/15/16 [History] PredniSONE [Se] 5 mg PO DAILY 04/15/16 [History] Striverdi Respimat 60 aerosol PO DAILY 04/15/16 [History] Tiotropium [Spiriva] 1 cap PO DAILY 04/15/16 [History] Trazodone HCl 200 cap PO DAILY 04/15/16 [History] Trospium Chloride 20 cap PO DAILY 04/15/16 [History] OxyCODONE/APAP 5/325 [Percocet 5/325 MG] 2 each PO Q6HR PRN #20 tablet 04/19/16 [Rx] Sennosides/Docusate Sodium [Senna Plus] 1 each PO BID #20 tablet 04/19/16 [Rx] Allergies/Adverse Reactions: Allergies No Known Allergies Allergy (Verified 12/04/15 19:16) Procedures/tests Complete & Pending: Procedures Performed prior 72 hours Category Date Time Status ECG 12 lead ECG [ECG] Routine Y 04/18/16 04:06 Completed Date of admission: 04/15/16 19:52 Primary care physician: Keegan Ayers MD Consults: 04/16/16 12:06 Consult to Wound Care [CONS] Routine Reason for Consult: left lower leg wound Call Completed: Yes 04/16/16 17:44 Consult to Orthopedic Surgery [CONS] Routine Consulting Provider: Von Willett Jr Reason for Consult: Fall and T8 superior end-plate fracture Call Completed: Yes 04/18/16 09:18 Consult to Physical Therapy [CONS] Routine Comment: Evaluate, develop and implement POC 04/18/16 14:36 Consult to Cripple Cutter [CONS] Routine Reason for SW Consult: Discharge planning Discharging clinician: Kimberly Alexis Anticipated date of discharge: 04/19/16 - Patient Status Disposition: Transfer SNF Condition: Fair Functional capacity at discharge: uses cane/walker Overall status at discharge: patient is progressing back to baseline - Discharge Instructions Follow Up With: Keegan Ayers MD [Primary Care Provider] - Additional Instructions: Assessment: T8 superior endplate compression fracture. Plan: 1. The patient currently has an elevated white blood cell count. The INR is also slightly elevated. These things should be resolved prior to spine surgery. 2. The patient could be discharged to rehabilitation as of now. 3. She should follow up with me in the office either at the end of this week or the beginning of next week. She can be added on to my schedule. 4. I discussed the risks and benefits of kyphoplasty repair of the T8 compression fracture. Her power of vm[employer] consultant was in the room. The patient is amenable to surgery, but the issues noted above must be corrected or at the very least understood better prior to surgery. I will look over her records and follow-up with her in the office in a few days. - Diet and Activity Activity: as per physical therapy, wear oxygen at all times Diet: diabetic diet, low fat, low cholesterol, low salt diet Hospital course: Ms. Fernandez is a 70 year old female with the above medical problems who was admitted after sustaining a mechanical fall at home, complaining of severe acute low back pain. CT and MRI of lumbar spine showed acute T8 superior endplate fracture along with a chronic T12 compression fracture. Patient was started on pain control with IV Dilaudid and oxycodone and her pain level gradually improved. Physical therapy evaluation was done and recommended placement in extended care facility for continued rehabilitation. Spine surgery was consulted for T8 fracture and patient was noted to have mild leukocytosis. She was recommended to follow up as an outpatient within 1 week of discharge to reassess and possibly plan for vertebroplasty. No focus of infection was noted. Chest x-ray showed no evidence of pneumonia. Patient remained hemodynamically stable and does not appear septic. She is currently medically stable for transfer to shelter for continued rehabilitation. - Time Spent with Patient Total time spent providing and/or coordinating discharge services: Greater than 30 minutes (49 min) - Constitutional Vitals: Temp Pulse Resp BP Pulse Ox 99.1 F 85 18 136/75 93 L 04/19/16 15:04 04/19/16 15:04 04/19/16 15:04 04/19/16 15:04 04/19/16 15:04 General appearance: Present: A&O X 3, morbidly obese, answers questions appropriately - Respiratory Respiratory exam: Present: CTAB, wheezes (B/L mild wheezing). Absent: accessory muscle use, rales, rhonchi - Cardiovascular Cardiovascular exam: Present: RRR, +S1, +S2. Absent: diastolic murmur, gallop, rubs, systolic murmur - VTE Reasons for not Prescribing Prophylaxis: Not indicated-Anticoagulated or INR therapeutic
--- NOTE | 2016-04-19 17:02 | Physician Discharge Referral ---
ExtendedCare Referral Info Transfer To: [facility] Provider in Charge: Kimberly Alexis Provider in Charge after Transfer: PCP Institutional Level of Care: Skilled - Diagnosis (1) Wedge compression fracture of T8 vertebra Priority: Primary Status: Acute (2) Atrial fibrillation Priority: Secondary Status: Chronic (3) Diabetes mellitus Priority: Secondary Status: Chronic (4) Hypertension Priority: Secondary Status: Chronic (5) Hypothyroidism Priority: Secondary Status: Chronic (6) ALEXANDER (obstructive sleep apnea) Priority: Secondary Status: Chronic (7) Parkinson disease Priority: Secondary Status: Chronic Expected Duration of Placement: 2 weeks Prognosis: Fair Aware of Diagnosis: Patient, Family Aware of Prognosis: Patient, Family - Transfer Medications Prescriptions: OxyCODONE/APAP 5/325 [Percocet 5/325 MG] 2 each PO Q6HR PRN #20 tablet PRN Reason: Pain Sennosides/Docusate Sodium [Senna Plus] 1 each PO BID #20 tablet Home Medications: Apixaban [Eliquis] 5 mg PO BID 04/15/16 [History] Aspirin [Lo-Dose Aspirin EC] 162 mg PO DAILY 04/15/16 [History] Atorvastatin Calcium [Lipitor] 20 cap PO DAILY 04/15/16 [History] Bupropion HCl [Wellbutrin Xl] 300 cap PO DAILY 04/15/16 [History] Cyanocobalamin (B-12) [Vitamin B12] 1,000 cap PO QWEEK 04/15/16 [History] Diltiazem HCl [Diltiazem 24Hr ER] 300 cap PO DAILY 04/15/16 [History] Guaifenesin [Tab Tussin] 400 mg PO TID 04/15/16 [History] Guaifenesin [Tussin Mucus-Chest Congestion] 100 dropperful PO PRN PRN 04/15/16 [ History] Levothyroxine Sodium 0.175 cap PO DAILY 04/15/16 [History] Losartan [Cozaar] 25 cap PO DAILY 04/15/16 [History] Metformin [Glucophage] 500 mg PO BIDWM 04/15/16 [History] Mometasone Furoate [Asmanex] 220 cap ORAL RINSE BID 04/15/16 [History] Montelukast Sodium [Singulair] 10 cap PO DAILY 04/15/16 [History] Paroxetine HCl [Paroxetine] 40 cap PO DAILY 04/15/16 [History] Perphenazine 8 cap PO DAILY 04/15/16 [History] PredniSONE [Se] 5 mg PO DAILY 04/15/16 [History] Striverdi Respimat 60 aerosol PO DAILY 04/15/16 [History] Tiotropium [Spiriva] 1 cap PO DAILY 04/15/16 [History] Trazodone HCl 200 cap PO DAILY 04/15/16 [History] Trospium Chloride 20 cap PO DAILY 04/15/16 [History] OxyCODONE/APAP 5/325 [Percocet 5/325 MG] 2 each PO Q6HR PRN #20 tablet 04/19/16 [Rx] Sennosides/Docusate Sodium [Senna Plus] 1 each PO BID #20 tablet 04/19/16 [Rx] Allergies/Adverse Reactions: Allergies No Known Allergies Allergy (Verified 12/04/15 19:16) - Respiratory Orders Oxygen / L per min (2-3L/min) Smoking Cessation: Smoking cessation has been advised. For more information, call the [facility] [employer] Tobacco Quit Line at 7-426-QBOA-NOW. - Ancillary Orders May use pressure relief devices daily prn - Advance Directives Code Status: Full Code - Mobility Orders Ambulate - Rehabiliation Orders Rehab Orders: ROM Exercises, Evaluation for Physical Therapy, Evaluation for Occupational Therapy - Diet Orders No Concentrated Sweets (diabetic), Cardiac CERTIFICATION: I certify that the transfer of the above named patient to an Extended Care Facility is necessary for the continuing treatment of the diagnosis listed. The above information is true and accurate reflection of patient's current condition. Confidential - Redisclosure prohibited without a patient's written consent.
== END 2016-04-19 19:42 ==
LOC: EMEROO 16:45 → 3NENU 16:45 → SUATTDRO 19:52 → 3NENU 21:13
PROVIDERS: ADMIT Internal Medicine; ATTEND Internal Medicine

== ENCOUNTER 2016-06-11 06:28 | Observation (INO) ==
--- NOTE | 2016-06-11 06:50 | Emergency Department Note ---
Disposition Clinical Impression: Generalized weakness Right rib fracture Qualifiers: Encounter type: initial encounter Rib fracture type: single rib Fracture type: closed Qualified Code(s): S22.31XA - Fracture of one rib, right side, initial encounter for closed fracture Fall with injury Qualifiers: Encounter type: initial encounter Qualified Code(s): W19.XXXA - Unspecified fall, initial encounter Closed head injury Qualifiers: Encounter type: initial encounter Qualified Code(s): S09.90XA - Unspecified injury of head, initial encounter Disposition: Admitted As Inpatient Condition: Fair [facility]Primary Care Provider[facility] - Forms: ED Satisfaction Letter Time of Disposition: 09:07 Fall HPI - General Chief Complaint: ED Fall Stated Complaint: fall Time Seen by Provider: 06/11/16 06:40 Source: patient Mode of arrival: EMS Limitations: no limitations Nursing Notes Reviewed: Yes Vital Signs Reviewed: Yes - History of Present Illness HPI Narrative: 70-year-old alert and oriented female presents to the emergency department for evaluation of a fall injury sustained just prior to arrival. The patient states that she was walking with the use of her walker, when "my legs gave out on me again". She states that she fell backwards, striking the back of her head against the floor. She is on blood thinners. She also complains of pain in the mid and lower back as well as her right shoulder and right hip. She states a history of frequent falls recently, of which she was evaluated for just yesterday here in this emergency department. She is requesting admission to the hospital for her generalized weakness, as well as frequent falls for the possibility of an ECF placement. She denies any loss of consciousness, nausea, vomiting, visual disturbances. She denies any chest pain, palpitations, shortness of breath either now or at the time of her fall. She denies any abdominal pain, blood in her stool, blood in her urine, or urinary symptoms. She denies any recent illnesses, fever, chills, or cough. Pt Subjective Complaint: fall Onset (ago): Just [employer] Fall From: standing Fall Witnessed: yes Place Fall Occurred: home Loss of Consciousness: none Prolonged Down Time?: no Symptoms Prior to Fall: other ("my legs gave out on me again") Context: history of frequent falls Location of injury: head, back, hip, other Location of injury - extremities: Right: shoulder, hip Severity: moderate Severity scale (1-10): 8 Quality: sharp Associated symptoms (after fall): Reports: weakness. Denies: chest pain, shortness of breath, abdominal pain, hematuria, lightheaded, vertigo, confusion - Related Data Home Medications Medication Instructions Recorded Confirmed Apixaban [Eliquis] 5 mg PO BID 04/15/16 04/16/16 Aspirin [Lo-Dose Aspirin EC] 162 mg PO DAILY 04/15/16 04/16/16 Atorvastatin Calcium [Lipitor] 20 cap PO DAILY 04/15/16 04/16/16 Bupropion HCl [Wellbutrin Xl] 300 cap PO DAILY 04/15/16 04/16/16 Cyanocobalamin (B-12) [Vitamin B12] 1,000 cap PO QWEEK 04/15/16 04/16/16 Diltiazem HCl [Diltiazem 24Hr ER] 300 cap PO DAILY 04/15/16 04/16/16 Guaifenesin [Tab Tussin] 400 mg PO TID 04/15/16 04/16/16 Guaifenesin [Tussin Mucus-Chest 100 dropperful PO PRN PRN 04/15/16 04/16/16 Congestion] Levothyroxine Sodium 0.175 cap PO DAILY 04/15/16 04/16/16 Losartan [Cozaar] 25 cap PO DAILY 04/15/16 04/16/16 Metformin [Glucophage] 500 mg PO BIDWM 04/15/16 04/16/16 Mometasone Furoate [Asmanex] 220 cap ORAL RINSE BID 04/15/16 04/16/16 Montelukast Sodium [Singulair] 10 cap PO DAILY 04/15/16 04/16/16 Paroxetine HCl [Paroxetine] 40 cap PO DAILY 04/15/16 04/16/16 Perphenazine 8 cap PO DAILY 04/15/16 04/16/16 PredniSONE [Se] 5 mg PO DAILY 04/15/16 04/16/16 Striverdi Respimat 60 aerosol PO DAILY 04/15/16 04/16/16 Tiotropium [Spiriva] 1 cap PO DAILY 04/15/16 04/16/16 Trazodone HCl 200 cap PO DAILY 04/15/16 04/16/16 Trospium Chloride 20 cap PO DAILY 04/15/16 04/16/16 Previous Rx's Medication Instructions Recorded OxyCODONE/APAP 5/325 [Percocet 2 each PO Q6HR PRN #20 tablet 04/19/16 5/325 MG] Sennosides/Docusate Sodium [Senna 1 each PO BID #20 tablet 04/19/16 Plus] Oxycodone HCl/Acetaminophen 1 each PO Q6H PRN #15 tablet 06/10/16 [Percocet 5-325 mg Tablet] Allergies Allergy/AdvReac Type Severity Reaction Status Date / Time No Known Allergies Allergy Verified 12/04/15 19:16 All systems ED: reviewed and negative except as stated. Constitutional: Denies: fever, chills, weakness, weight change Eyes: Denies: eye pain, eye discharge, vision change ENT ED: Denies: ear pain, throat pain, dental pain, hearing loss, epistaxis, congestion, dysphagia Cardiovascular: Denies: chest pain, palpitations, dyspnea on exertion, edema, syncope Respiratory: Denies: cough, dyspnea, wheezes, hemoptysis, stridor Gastrointestinal: Denies: abdominal pain, nausea, vomiting, diarrhea, constipation, hematemesis, melena, hematochezia Genitourinary: Denies: dysuria, frequency, hematuria, discharge Musculoskeletal: Reports: as per HPI, back pain, neck pain, arthralgia (Right shoulder and right hip pain). Denies: myalgia Integumentary: Denies: rash, abrasion, lesions Neurological: Reports: as per HPI, headache. Denies: weakness, numbness, paresthesias, confusion, abnormal gait, vertigo Psychiatric: Denies: anxiety, depression, suicidal thoughts, homicidal thoughts , auditory hallucinations, visual hallucinations Endocrine: Denies: fatigue Hematological/Lymphatic: Denies: easy bleeding, easy bruising Allergic/Immunologic: Denies: facial swelling, urticaria Fall PMH - Past Medical History Medical history: Reports: atrial fibrillation, COPD, CVA, diabetes, hyperlipidemia, hypertension, thyroid disease, other Surgical history: Reports: herniorrhaphy, orthopedic, other, other Psychiatric history: Reports: anxiety, depression - Social History Smoking Status: Never smoker Alcohol use: Reports: none Drug use: Reports: none Physical Exam - General Limitations: no limitations General appearance: alert - Head Head exam: normocephalic - Expanded Head Exam Head exam physicial: Present: hematoma 1 - Approximate 3 cm x 3 cm hematoma noted. No ecchymosis. No abrasion or laceration. - Eye Eye exam: Present: normal appearance, PERRL, EOMI. Absent: nystagmus - Expanded Eye Exam Pupils: Bilateral: regular, round, reactive, size (2) - ENT ENT exam: mucous membranes moist - Neck Neck exam: Present: normal inspection, full ROM, trachea midline, tenderness ( Tenderness to palpation of the cervical vertebral spinous processes). Absent: lymphadenopathy - Chest Chest inspection: Present: normal inspection, symmetric chest wall rise. Absent : tenderness - Respiratory Respiratory exam: Present: normal lung sounds bilaterally. Absent: respiratory distress, wheezes, stridor, accessory muscle use, prolonged expiratory phase - Cardiovascular Cardiovascular exam: Present: regular rate, normal rhythm, normal heart sounds - Abdominal Exam Abdominal exam: Present: soft, Non-Tender, normal bowel sounds. Absent: tenderness, distention, guarding, rebound, rigidity, trauma - Expanded Upper Extremity Exam Shoulder exam: Present: normal inspection, full ROM. Absent: tenderness, abrasion, laceration, ecchymosis, crepitus, erythema Arm exam: Present: normal inspection, full ROM - Expanded Lower Extremity Exam Hip/Pelvis exam: Present: normal inspection, full ROM, pelvis stable. Absent: tenderness, swelling, abrasion, laceration, ecchymosis, deformity, crepitus, dislocation Upper leg exam: Present: normal inspection, full ROM Knee exam: Present: ecchymosis (small area of ecchymosis noted to area of right patella from fall yesterday.) Neurovascular/Tendon exam: Present: normal capillary refill, normal 2-point discrimination. Absent: pulse deficit, motor deficit, sensory deficit, tendon deficit, extremity cold to touch, pallor Gait: not tested/not observed - Back Exam Back exam: Present: normal inspection, full ROM, tenderness, vertebral tenderness (Vertebral spinous process point tenderness to palpation of the thoracic spine.). Absent: CVA tenderness (R), CVA tenderness (L) - Neurological Exam Neurological exam: Present: alert, oriented X3 - Psychiatric Psychiatric exam: Present: normal affect, normal mood - Skin Skin exam: Present: warm, dry, intact, normal color Course Course Narrative: 0654: At this time, laboratory and radiology results are pending. The patient is awake, alert, and appropriate. The patient is in no acute distress at this time. I have discussed this patient's case with Dr. Michel. Dr. Michel has had a [id number] evaluation with the patient and recommends admission to the hospital service for generalized weakness and frequent falls. 0905: I spoke with Dr. Chairez of the hospitalist service. Dr. Chairez accepts the patient for observation/treatment of generalized weakness and frequent falls. Vital Signs Temperature 98.7 F 06/11/16 06:30 Pulse Rate 68 06/11/16 06:30 Respiratory Rate 20 06/11/16 06:30 Blood Pressure 144/87 06/11/16 06:30 O2 Sat by Pulse Oximetry 100 06/11/16 06:30 Temperature 98.7 F 06/11/16 06:30 Pulse Rate 86 06/11/16 08:30 Respiratory Rate 18 06/11/16 08:30 Blood Pressure 108/84 06/11/16 08:30 O2 Sat by Pulse Oximetry 94 06/11/16 08:30 Oxygen Delivery Oxygen Delivery Room Air Fall - Medical Records Medical records reviewed: Yes I reviewed the patient's medical records. - Lab Data Lab results reviewed: Yes I reviewed the patient's lab results. Lab results narrative: Laboratory Last Values WBC 12.5 K/mcL (4.3-11.1) H 06/11/16 07:08 RBC 3.91 M/mcL (3.82-4.97) 06/11/16 07:08 Hgb 11.7 g/dL (11.5-15.4) 06/11/16 07:08 Hct 36.6 % (35.3-44.9) 06/11/16 07:08 MCV 93.6 fL (83.0-100.0) 06/11/16 07:08 MCH 29.9 pg (28.0-33.3) 06/11/16 07:08 MCHC 32.0 g/dL (31.6-35.5) 06/11/16 07:08 RDW 14.6 % (11.5-14.5) H 06/11/16 07:08 Plt Count 306 K/mcL (140-400) 06/11/16 07:08 MPV 9.7 fL (9.4-12.4) 06/11/16 07:08 Immature Gran % 1.5 % (0-4) 06/11/16 07:08 Seg Neutrophils % 69.7 % 06/11/16 07:08 Lymphocytes % 14.3 % 06/11/16 07:08 Monocytes % 9.6 % 06/11/16 07:08 Eosinophils % 4.3 % 06/11/16 07:08 Basophils % 0.6 % 06/11/16 07:08 Neutrophils # 8.7 K/mcL (1.6-8.9) 06/11/16 07:08 Lymphocytes # 1.8 K/mcL (0.6-4.6) 06/11/16 07:08 Monocytes # 1.2 K/mcL (0.0-1.3) 06/11/16 07:08 Eosinophils # 0.5 K/mcL (0.0-0.6) 06/11/16 07:08 Basophils # 0.1 K/mcL (0.0-0.2) 06/11/16 07:08 PT 14.8 Seconds (9.4-12.1) H 06/11/16 07:08 INR 1.4 06/11/16 07:08 APTT 34.7 Seconds (26.0-36.0) 06/11/16 07:08 Sodium 137 mEq/L (136-145) 06/11/16 07:08 Potassium 4.4 mEq/L (3.5-4.5) 06/11/16 07:08 Chloride 101 mEq/L (98-109) 06/11/16 07:08 Carbon Dioxide 25 mEq/L (19-29) 06/11/16 07:08 BUN 13 mg/dL (7-20) 06/11/16 07:08 Creatinine 0.87 mg/dL (0.57-1.11) 06/11/16 07:08 Est GFR ( Amer) > 60 (> 60) 06/11/16 07:08 Est GFR (Non-Af Amer) > 60 (> 60) 06/11/16 07:08 BUN/Creatinine Ratio 15 (6-26) 06/11/16 07:08 Glucose 102 mg/dL (70-99) H 06/11/16 07:08 Calculated Osmolality 284 (280-300) 06/11/16 07:08 Calcium 9.7 mg/dL (8.6-10.8) 06/11/16 07:08 Troponin I 0.01 ng/mL (0-0.03) 06/11/16 07:08 Urine Color Yellow (Yellow) 06/11/16 06:55 Urine Clarity Clear (Clear) 06/11/16 06:55 Urine pH 6.5 pH Units (5.0-8.0) 06/11/16 06:55 Ur Specific Briggs 1.015 (1.010-1.025) 06/11/16 06:55 Urine Protein Negative mg/dL (Neg-Trace) 06/11/16 06:55 Urine Glucose (UA) Normal mg/dL (Normal) 06/11/16 06:55 Urine Ketones Negative mg/dL (Negative) 06/11/16 06:55 Urine Blood Negative (Negative) 06/11/16 06:55 Urine Nitrite Negative (Negative) 06/11/16 06:55 Urine Bilirubin Negative (Negative) 06/11/16 06:55 Urine Urobilinogen Normal mg/dL (Normal) 06/11/16 06:55 Ur Leukocyte Esterase Trace (Negative) H 06/11/16 06:55 Urine Microscopic RBC 3-5 per hpf (0-3) H 06/11/16 06:55 Urine Microscopic WBC 3-5 per hpf (0-3) H 06/11/16 06:55 Ur Squamous Epith Cells Few per lpf (None-Few) 06/11/16 06:55 Urine Bacteria None Seen per hpf (None-Few) 06/11/16 06:55 Hyaline Casts None Seen per lpf (None-Few) 06/11/16 06:55 Ur Culture Indicated? YES (NO) A 06/11/16 06:55 Result diagrams: 06/11/16 07:08 06/11/16 07:08 Lab Results 06/11/16 06/11/16 06/11/16 Range/Units 06:55 07:08 07:08 WBC 12.5 H (4.3-11.1) K/mcL RBC 3.91 (3.82-4.97) M/mcL Hgb 11.7 (11.5-15.4) g/dL Hct 36.6 (35.3-44.9) % MCV 93.6 (83.0-100.0) fL MCH 29.9 (28.0-33.3) pg MCHC 32.0 (31.6-35.5) g/dL RDW 14.6 H (11.5-14.5) % Plt Count 306 (140-400) K/mcL MPV 9.7 (9.4-12.4) fL Immature Gran % 1.5 (0-4) % Seg Neutrophils % 69.7 % Lymphocytes % 14.3 % Monocytes % 9.6 % Eosinophils % 4.3 % Basophils % 0.6 % Neutrophils # 8.7 (1.6-8.9) K/mcL Lymphocytes # 1.8 (0.6-4.6) K/mcL Monocytes # 1.2 (0.0-1.3) K/mcL Eosinophils # 0.5 (0.0-0.6) K/mcL Basophils # 0.1 (0.0-0.2) K/mcL PT 14.8 H (9.4-12.1) Seconds INR 1.4 APTT 34.7 (26.0-36.0) Seconds Sodium (136-145) mEq/L Potassium (3.5-4.5) mEq/L Chloride (98-109) mEq/L Carbon Dioxide (19-29) mEq/L BUN (7-20) mg/dL Creatinine (0.57-1.11) mg/dL Est GFR ( Amer) (> 60) Est GFR (Non-Af Amer) (> 60) BUN/Creatinine Ratio (6-26) Glucose (70-99) mg/dL Calculated Osmolality (280-300) Calcium (8.6-10.8) mg/dL Troponin I (0-0.03) ng/mL Urine Color Yellow (Yellow) Urine Clarity Clear (Clear) Urine pH 6.5 (5.0-8.0) pH Units Ur Specific Briggs 1.015 (1.010-1.025) Urine Protein Negative (Neg-Trace) mg/dL Urine Glucose (UA) Normal (Normal) mg/dL Urine Ketones Negative (Negative) mg/dL Urine Blood Negative (Negative) Urine Nitrite Negative (Negative) Urine Bilirubin Negative (Negative) Urine Urobilinogen Normal (Normal) mg/dL Ur Leukocyte Esterase Trace H (Negative) Urine Microscopic RBC 3-5 H (0-3) per hpf Urine Microscopic WBC 3-5 H (0-3) per hpf Ur Squamous Epith Cells Few (None-Few) per lpf Urine Bacteria None Seen (None-Few) per hpf Hyaline Casts None Seen (None-Few) per lpf Ur Culture Indicated? YES A (NO) 06/11/16 06/11/16 Range/Units 07:08 07:08 WBC (4.3-11.1) K/mcL RBC (3.82-4.97) M/mcL Hgb (11.5-15.4) g/dL Hct (35.3-44.9) % MCV (83.0-100.0) fL MCH (28.0-33.3) pg MCHC (31.6-35.5) g/dL RDW (11.5-14.5) % Plt Count (140-400) K/mcL MPV (9.4-12.4) fL Immature Gran % (0-4) % Seg Neutrophils % % Lymphocytes % % Monocytes % % Eosinophils % % Basophils % % Neutrophils # (1.6-8.9) K/mcL Lymphocytes # (0.6-4.6) K/mcL Monocytes # (0.0-1.3) K/mcL Eosinophils # (0.0-0.6) K/mcL Basophils # (0.0-0.2) K/mcL PT (9.4-12.1) Seconds INR APTT (26.0-36.0) Seconds Sodium 137 (136-145) mEq/L Potassium 4.4 (3.5-4.5) mEq/L Chloride 101 (98-109) mEq/L Carbon Dioxide 25 (19-29) mEq/L BUN 13 (7-20) mg/dL Creatinine 0.87 (0.57-1.11) mg/dL Est GFR ( Amer) > 60 (> 60) Est GFR (Non-Af Amer) > 60 (> 60) BUN/Creatinine Ratio 15 (6-26) Glucose 102 H (70-99) mg/dL Calculated Osmolality 284 (280-300) Calcium 9.7 (8.6-10.8) mg/dL Troponin I 0.01 (0-0.03) ng/mL Urine Color (Yellow) Urine Clarity (Clear) Urine pH (5.0-8.0) pH Units Ur Specific Briggs (1.010-1.025) Urine Protein (Neg-Trace) mg/dL Urine Glucose (UA) (Normal) mg/dL Urine Ketones (Negative) mg/dL Urine Blood (Negative) Urine Nitrite (Negative) Urine Bilirubin (Negative) Urine Urobilinogen (Normal) mg/dL Ur Leukocyte Esterase (Negative) Urine Microscopic RBC (0-3) per hpf Urine Microscopic WBC (0-3) per hpf Ur Squamous Epith Cells (None-Few) per lpf Urine Bacteria (None-Few) per hpf Hyaline Casts (None-Few) per lpf Ur Culture Indicated? (NO) - Radiology Data Radiology results reviewed: Yes I reviewed the patient's radiology results. Cervical Spine CT 06/11/16 06:41 IMPRESSION: No acute abnormality of the cervical spine. D/ / 06/11/2016 07:56:31 Luisana Jorgensen MD / [facility] Interpreting Provider: Luisana Jorgensen MD Head CT 06/11/16 06:41 IMPRESSION: No acute intracranial abnormality. D/ / Alvin Salazar MD / Alvin Salazar MD Interpreting Provider: Alvin Salazar MD Lumbar Spine CT 06/11/16 06:41 IMPRESSION: 1. Interval worsening of the previously described superior endplate deformity of T8 with now approximately 20% loss of vertebral body height. 2. Nondisplaced fracture of the posterior inferior endplate of T7. Finding likely represents a subacute fracture with interval sclerosis but due to osteopenia was not appreciated on the prior study. 3. Chronic T12 fracture. D/ / 06/11/2016 08:09:53 Luisana Jorgensen MD / [facility] Interpreting Provider: Luisana Jorgensen MD Pelvis X-Ray 06/11/16 06:41 IMPRESSION: 1. No acute abnormality of the right shoulder. There is stable osteoarthritis at the AC and glenohumeral joints. 2. Acute nondisplaced fracture of the right lateral 7th rib. There are chronic healed fracture deformities of the posterior right 6th through 11th ribs. There is mild bibasilar atelectasis, without evidence of a pneumothorax. 3. No acute radiographic abnormality of the osseous pelvis or either hip. D/ / 06/11/2016 08:52:35 Reji Cline MD / [facility] Interpreting Provider: Reji Cline MD Thoracic Spine CT 06/11/16 06:41 IMPRESSION: 1. Interval worsening of the previously described superior endplate deformity of T8 with now approximately 20% loss of vertebral body height. 2. Nondisplaced fracture of the posterior inferior endplate of T7. Finding likely represents a subacute fracture with interval sclerosis but due to osteopenia was not appreciated on the prior study. 3. Chronic T12 fracture. D/ / 06/11/2016 08:09:53 Luisana Jorgensen MD / [facility] Interpreting Provider: Luisana Jorgensen MD Ribs w/Chest X-Ray 06/11/16 06:43 IMPRESSION: 1. No acute abnormality of the right shoulder. There is stable osteoarthritis at the AC and glenohumeral joints. 2. Acute nondisplaced fracture of the right lateral 7th rib. There are chronic healed fracture deformities of the posterior right 6th through 11th ribs. There is mild bibasilar atelectasis, without evidence of a pneumothorax. 3. No acute radiographic abnormality of the osseous pelvis or either hip. D/ / 06/11/2016 08:52:35 Reji Cline MD / [facility] Interpreting Provider: Reji Cline MD Shoulder X-Ray 06/11/16 06:43 IMPRESSION: 1. No acute abnormality of the right shoulder. There is stable osteoarthritis at the AC and glenohumeral joints. 2. Acute nondisplaced fracture of the right lateral 7th rib. There are chronic healed fracture deformities of the posterior right 6th through 11th ribs. There is mild bibasilar atelectasis, without evidence of a pneumothorax. 3. No acute radiographic abnormality of the osseous pelvis or either hip. D/ / 06/11/2016 08:52:35 Reji Cline MD / [facility] Interpreting Provider: Reji Cline MD - EKG Data EKG attestation: Yes I reviewed and interpreted this EKG. EKG results narrative: EKG reviewed by Dr. Castro as well. EKG shows a sinus rhythm with a first- degree AV block. No ectopy noted. No STEMI.
[2016-06-11 07:02] LABS: Bilirubin,Urine Negative (Negative); Blood,Urine Negative (Negative); Clarity,Urine Clear (Clear); Color,Urine Yellow (Yellow); Glucose,Urine (UA) Normal (Normal); Ketones,Urine Negative (Negative); Leukocyte Esterase,Urine Trace (Negative); Nitrite,Urine Negative (Negative); PH,Urine 6.5 pH Units (5.0-8.0); Protein,Urine Negative (Neg-Trace); Specific Gravity,Urine 1.015 (1.010-1.025); Urobilinogen,Urine Normal (Normal)
[2016-06-11 07:10] LABS: Bacteria,Urine None Seen per hpf (None-Few); Hyaline Casts,Urine None Seen per lpf (None-Few); Squamous Epithelial Cell,Urine Few per lpf (None-Few)
[2016-06-11 07:16] LABS: Basophils # 0.1 K/mcL (0.0-0.2); Basophils % 0.6 %; Eosinophils # 0.5 K/mcL (0.0-0.6); Eosinophils % 4.3 %; Hematocrit 36.6 % (35.3-44.9); Hemoglobin 11.7 g/dL (11.5-15.4); Immature Granulocytes % 1.5 % (0-4); Lymphocytes # 1.8 K/mcL (0.6-4.6); Lymphocytes % 14.3 %; Mean Corpuscular Hemoglobin 29.9 pg (28.0-33.3); Mean Corpuscular Volume 93.6 fL (83.0-100.0); Mean Platelet Volume 9.7 fL (9.4-12.4); Monocytes # 1.2 K/mcL (0.0-1.3); Monocytes % 9.6 %; Neutrophils # 8.7 K/mcL (1.6-8.9); Platelet Count 306 K/mcL (140-400); Red Blood Count 3.91 M/mcL (3.82-4.97); Red Cell Distribution Width 14.6 % (11.5-14.5); Segmented Neutrophils % 69.7 %
[2016-06-11 07:24] LABS: INR 1.4; Prothrombin Time 14.8 Seconds (9.4-12.1)
[2016-06-11 07:27] LABS: Activated Partial Thrombo Time 34.7 Seconds (26.0-36.0)
[2016-06-11 07:28] LABS: BUN/Creatinine Ratio 15 (6-26); Blood Urea Nitrogen 13 mg/dL (7-20); Calcium 9.7 mg/dL (8.6-10.8); Carbon Dioxide 25 mEq/L (19-29); Chloride 101 mEq/L (98-109); Glucose 102 mg/dL (70-99); Osmolality,Calculated 284 (280-300); Potassium 4.4 mEq/L (3.5-4.5); Sodium 137 mEq/L (136-145); eGFR For African Americans > 60 (> 60); eGFR For Non-African Americans > 60 (> 60)
--- NOTE | 2016-06-11 09:22 | Emergency Department Note ---
Disposition Clinical Impression: Generalized weakness Right rib fracture Qualifiers: Encounter type: initial encounter Rib fracture type: single rib Fracture type: closed Qualified Code(s): S22.31XA - Fracture of one rib, right side, initial encounter for closed fracture Fall with injury Qualifiers: Encounter type: initial encounter Qualified Code(s): W19.XXXA - Unspecified fall, initial encounter Closed head injury Qualifiers: Encounter type: initial encounter Qualified Code(s): S09.90XA - Unspecified injury of head, initial encounter Disposition: Admitted As Inpatient Condition: Fair General Adult HPI - General Chief complaint: ED Fall Stated complaint: fall Time Seen by Provider: 06/11/16 06:40 Source: patient Mode of arrival: EMS Limitations: no limitations - History of Present Illness Pain Scale: 8 - Related Data Home Medications Medication Instructions Recorded Confirmed Apixaban [Eliquis] 5 mg PO BID 04/15/16 04/16/16 Aspirin [Lo-Dose Aspirin EC] 162 mg PO DAILY 04/15/16 04/16/16 Atorvastatin Calcium [Lipitor] 20 cap PO DAILY 04/15/16 04/16/16 Bupropion HCl [Wellbutrin Xl] 300 cap PO DAILY 04/15/16 04/16/16 Cyanocobalamin (B-12) [Vitamin B12] 1,000 cap PO QWEEK 04/15/16 04/16/16 Diltiazem HCl [Diltiazem 24Hr ER] 300 cap PO DAILY 04/15/16 04/16/16 Guaifenesin [Tab Tussin] 400 mg PO TID 04/15/16 04/16/16 Guaifenesin [Tussin Mucus-Chest 100 dropperful PO PRN PRN 04/15/16 04/16/16 Congestion] Levothyroxine Sodium 0.175 cap PO DAILY 04/15/16 04/16/16 Losartan [Cozaar] 25 cap PO DAILY 04/15/16 04/16/16 Metformin [Glucophage] 500 mg PO BIDWM 04/15/16 04/16/16 Mometasone Furoate [Asmanex] 220 cap ORAL RINSE BID 04/15/16 04/16/16 Montelukast Sodium [Singulair] 10 cap PO DAILY 04/15/16 04/16/16 Paroxetine HCl [Paroxetine] 40 cap PO DAILY 04/15/16 04/16/16 Perphenazine 8 cap PO DAILY 04/15/16 04/16/16 PredniSONE [Se] 5 mg PO DAILY 04/15/16 04/16/16 Striverdi Respimat 60 aerosol PO DAILY 04/15/16 04/16/16 Tiotropium [Spiriva] 1 cap PO DAILY 04/15/16 04/16/16 Trazodone HCl 200 cap PO DAILY 04/15/16 04/16/16 Trospium Chloride 20 cap PO DAILY 04/15/16 04/16/16 Previous Rx's Medication Instructions Recorded OxyCODONE/APAP 5/325 [Percocet 2 each PO Q6HR PRN #20 tablet 04/19/16 5/325 MG] Sennosides/Docusate Sodium [Senna 1 each PO BID #20 tablet 04/19/16 Plus] Oxycodone HCl/Acetaminophen 1 each PO Q6H PRN #15 tablet 06/10/16 [Percocet 5-325 mg Tablet] Allergies Allergy/AdvReac Type Severity Reaction Status Date / Time No Known Allergies Allergy Verified 12/04/15 19:16 Constitutional: Denies: fever, chills, weakness, weight change Eyes: Denies: eye pain, eye discharge, vision change ENT ED: Denies: ear pain, throat pain, dental pain, hearing loss, epistaxis, congestion, dysphagia Cardiovascular: Denies: chest pain, palpitations, dyspnea on exertion, edema, syncope Respiratory: Denies: cough, dyspnea, wheezes, hemoptysis, stridor Gastrointestinal: Denies: abdominal pain, nausea, vomiting, diarrhea, constipation, hematemesis, melena, hematochezia Genitourinary: Denies: dysuria, frequency, hematuria, discharge Musculoskeletal: Reports: as per HPI, back pain, neck pain, arthralgia (Right shoulder and right hip pain). Denies: myalgia Integumentary: Denies: rash, abrasion, lesions Neurological: Reports: as per HPI, headache. Denies: weakness, numbness, paresthesias, confusion, abnormal gait, vertigo Psychiatric: Denies: anxiety, depression, suicidal thoughts, homicidal thoughts , auditory hallucinations, visual hallucinations Endocrine: Denies: fatigue Hematological/Lymphatic: Denies: easy bleeding, easy bruising Allergic/Immunologic: Denies: facial swelling, urticaria Past Medical History - Past Medical History Medical history: Reports: atrial fibrillation, COPD, CVA, diabetes, hyperlipidemia, hypertension, thyroid disease, other Surgical history: Reports: herniorrhaphy, orthopedic, other, other Psychiatric history: Reports: anxiety, depression - Social History Smoking Status: Never smoker Smokeless Tobacco Status: No Alcohol use: Reports: none Drug use: Reports: none Physical Exam - General Limitations: no limitations General appearance: alert Course - Reevaluation(s) Reevaluation #1: I saw the patient with the nurse practitioner, Dash Gordon. Patient presents with frequent falls at home. Workup not revealing obvious etiology. Does not sound like the patient is safe at home. Family is requesting senior care placement. We will admit the patient to the hospital for full medical clearance. Time: 09:22 Vital Signs Temperature 98.7 F 06/11/16 06:30 Pulse Rate 68 06/11/16 06:30 Respiratory Rate 20 06/11/16 06:30 Blood Pressure 144/87 06/11/16 06:30 O2 Sat by Pulse Oximetry 100 06/11/16 06:30 Temperature 98.7 F 06/11/16 06:30 Pulse Rate 84 06/11/16 09:00 Respiratory Rate 18 06/11/16 09:00 Blood Pressure 124/66 06/11/16 09:00 O2 Sat by Pulse Oximetry 94 06/11/16 09:00 Oxygen Delivery Oxygen Delivery Room Air Medical Decision Making - Lab Data Result diagrams: 06/11/16 07:08 06/11/16 07:08 Lab Results 06/11/16 06/11/16 06/11/16 Range/Units 06:55 07:08 07:08 WBC 12.5 H (4.3-11.1) K/mcL RBC 3.91 (3.82-4.97) M/mcL Hgb 11.7 (11.5-15.4) g/dL Hct 36.6 (35.3-44.9) % MCV 93.6 (83.0-100.0) fL MCH 29.9 (28.0-33.3) pg MCHC 32.0 (31.6-35.5) g/dL RDW 14.6 H (11.5-14.5) % Plt Count 306 (140-400) K/mcL MPV 9.7 (9.4-12.4) fL Immature Gran % 1.5 (0-4) % Seg Neutrophils % 69.7 % Lymphocytes % 14.3 % Monocytes % 9.6 % Eosinophils % 4.3 % Basophils % 0.6 % Neutrophils # 8.7 (1.6-8.9) K/mcL Lymphocytes # 1.8 (0.6-4.6) K/mcL Monocytes # 1.2 (0.0-1.3) K/mcL Eosinophils # 0.5 (0.0-0.6) K/mcL Basophils # 0.1 (0.0-0.2) K/mcL PT 14.8 H (9.4-12.1) Seconds INR 1.4 APTT 34.7 (26.0-36.0) Seconds Sodium (136-145) mEq/L Potassium (3.5-4.5) mEq/L Chloride (98-109) mEq/L Carbon Dioxide (19-29) mEq/L BUN (7-20) mg/dL Creatinine (0.57-1.11) mg/dL Est GFR ( Amer) (> 60) Est GFR (Non-Af Amer) (> 60) BUN/Creatinine Ratio (6-26) Glucose (70-99) mg/dL Calculated Osmolality (280-300) Calcium (8.6-10.8) mg/dL Troponin I (0-0.03) ng/mL Urine Color Yellow (Yellow) Urine Clarity Clear (Clear) Urine pH 6.5 (5.0-8.0) pH Units Ur Specific [place] 1.015 (1.010-1.025) Urine Protein Negative (Neg-Trace) mg/dL Urine Glucose (UA) Normal (Normal) mg/dL Urine Ketones Negative (Negative) mg/dL Urine Blood Negative (Negative) Urine Nitrite Negative (Negative) Urine Bilirubin Negative (Negative) Urine Urobilinogen Normal (Normal) mg/dL Ur Leukocyte Esterase Trace H (Negative) Urine Microscopic RBC 3-5 H (0-3) per hpf Urine Microscopic WBC 3-5 H (0-3) per hpf Ur Squamous Epith Cells Few (None-Few) per lpf Urine Bacteria None Seen (None-Few) per hpf Hyaline Casts None Seen (None-Few) per lpf Ur Culture Indicated? YES A (NO) 06/11/16 06/11/16 Range/Units 07:08 07:08 WBC (4.3-11.1) K/mcL RBC (3.82-4.97) M/mcL Hgb (11.5-15.4) g/dL Hct (35.3-44.9) % MCV (83.0-100.0) fL MCH (28.0-33.3) pg MCHC (31.6-35.5) g/dL RDW (11.5-14.5) % Plt Count (140-400) K/mcL MPV (9.4-12.4) fL Immature Gran % (0-4) % Seg Neutrophils % % Lymphocytes % % Monocytes % % Eosinophils % % Basophils % % Neutrophils # (1.6-8.9) K/mcL Lymphocytes # (0.6-4.6) K/mcL Monocytes # (0.0-1.3) K/mcL Eosinophils # (0.0-0.6) K/mcL Basophils # (0.0-0.2) K/mcL PT (9.4-12.1) Seconds INR APTT (26.0-36.0) Seconds Sodium 137 (136-145) mEq/L Potassium 4.4 (3.5-4.5) mEq/L Chloride 101 (98-109) mEq/L Carbon Dioxide 25 (19-29) mEq/L BUN 13 (7-20) mg/dL Creatinine 0.87 (0.57-1.11) mg/dL Est GFR ( Amer) > 60 (> 60) Est GFR (Non-Af Amer) > 60 (> 60) BUN/Creatinine Ratio 15 (6-26) Glucose 102 H (70-99) mg/dL Calculated Osmolality 284 (280-300) Calcium 9.7 (8.6-10.8) mg/dL Troponin I 0.01 (0-0.03) ng/mL Urine Color (Yellow) Urine Clarity (Clear) Urine pH (5.0-8.0) pH Units Ur Specific [place] (1.010-1.025) Urine Protein (Neg-Trace) mg/dL Urine Glucose (UA) (Normal) mg/dL Urine Ketones (Negative) mg/dL Urine Blood (Negative) Urine Nitrite (Negative) Urine Bilirubin (Negative) Urine Urobilinogen (Normal) mg/dL Ur Leukocyte Esterase (Negative) Urine Microscopic RBC (0-3) per hpf Urine Microscopic WBC (0-3) per hpf Ur Squamous Epith Cells (None-Few) per lpf Urine Bacteria (None-Few) per hpf Hyaline Casts (None-Few) per lpf Ur Culture Indicated? (NO) Attestation Statement - Attestation Attestation: I, Dr. Michel, examined this patient [id number] and my medical decision- making was reviewed with the nurse practitioner, Dash Gordon. I agree with the documented findings, disposition and treatment plan as described except to the extent set forth below. Please see my progress notes for details.
--- NOTE | 2016-06-11 10:52 | Internal Med History&Physical ---
Date of Encounter: 06/11/16 Time of Encounter: 10:48 Assessment and Plan (1) Fall Current visit: No Status: Acute h/o recurrent falls. 2/2 generalized weakness, denies any chest pain, shortness of breath, headache or dizziness prior to fall. reports some improvement after rehab admission however has been falling too often and is on blood thinners. CT head is negative. will consult PT OT and social work for possible admission to half-way. Qualifiers: Encounter type: initial encounter Qualified Code(s): W19.XXXA - Unspecified fall, initial encounter (2) Wedge compression fracture of T8 vertebra Current visit: No Status: Acute Was noted on last admission, spine surgery was consulted. Patient has been seen by Dr. Willett recently on 05/21 and has been followed by Carine Castro on 05/30 and recommended no surgical intervention. CT thoracic spine shows worsening T8 compression fracture however Patient reports improvement in back pain and says that he was told to be continued with conservative therapy. if pain worsens, consider reconsulting spine surgery. Qualifiers: Encounter type: initial encounter Fracture type: closed Qualified Code(s) : S22.060A - Wedge compression fracture of T7-T8 vertebra, initial encounter for closed fracture (3) Atrial fibrillation Current visit: No Status: Chronic stable. continue home meds, on elliquis for AC. If the falling does not improve with rehab, he may not be a good candidate for AC. Qualifiers: Atrial fibrillation type: chronic Qualified Code(s): I48.2 - Chronic atrial fibrillation (4) Hypertension Current visit: No Status: Chronic Blood pressure stable. We will continue home medication. Qualifiers: Hypertension type: essential hypertension Qualified Code(s): I10 - Essential (primary) hypertension (5) Diabetes mellitus Current visit: No Status: Chronic Recent A1c noted 6.6. Patient takes metformin at home, we will stop metformin here. We will only start medium dose sliding scale correctional insulin, can titrate as needed according to the fingerstick. Qualifiers: Diabetes mellitus type: type 2 Diabetes mellitus complication status: with unspecified complications Diabetes mellitus intermediate project manager insulin use: without intermediate project manager use Qualified Code(s): E11.8 - Type 2 diabetes mellitus with unspecified complications (6) Right rib fracture Current visit: Yes Status: Acute Chronic. Qualifiers: Encounter type: initial encounter Rib fracture type: single rib Fracture type: closed Qualified Code(s): S22.31XA - Fracture of one rib, right side, initial encounter for closed fracture Internal Medicine - H&P: HPI Chief complaint: fall Admitted From: Home Plans for Post Hospital Care: [facility] History of present illness: Ms. Fernandez is a 70 year old female presents to the emergency department for evaluation of a fall injury this morning at 1am. The patient states that she was walking with the use of her walker and was going to the bathroom when "my legs gave out on me again". She states that she fell backwards, striking the back of her head against the floor. She is on blood thinners. She was recently admitted on April was discharged to a rehabilitation where she stayed for 4 weeks and was discharged back home. She has a history of acute compression fracture of T8 and chronic T12 fracture. She has been seen by Dr. Willett as outpatient recently on 05/21 and recommended no surgical intervention. sHe reports that her back pain is better with rehabilitation and she was told that she does not need surgery for now. She is requesting admission to the hospital for her generalized weakness, as well as frequent falls for the possibility of an ECF placement. She denies any loss of consciousness, nausea, vomiting, visual disturbances. She denies any chest pain, palpitations, shortness of breath either now or at the time of her fall. She denies any abdominal pain, blood in her stool, blood in her urine, or urinary symptoms. She denies any recent illnesses, fever, chills, or cough. Past Med Surg Social Fam HX - Past Medical History Medical history: atrial fibrillation, COPD, CVA, diabetes, hyperlipidemia, hypertension, thyroid disease, other Psychiatric history: anxiety, depression - Past Surgical History Surgical History: herniorrhaphy, orthopedic, other, other - Social History Smoking Status: Never smoker Smokeless Tobacco Status: No Alcohol use: none Drug use: none - Family History Mother History Unknown: Yes Father Living Status: Cause of : Heart Attack Hx Family Cardiac Disorders: Yes Internal Medicine - H&P: Meds Apixaban [Eliquis] 5 mg PO BID 04/15/16 [History] Aspirin [Lo-Dose Aspirin EC] 162 mg PO DAILY 04/15/16 [History] Atorvastatin Calcium [Lipitor] 20 mg PO DAILY 04/15/16 [History] Cyanocobalamin (B-12) [Vitamin B12] 1,000 cap PO QWEEK 04/15/16 [History] Diltiazem HCl [Diltiazem 24Hr ER] 300 mg PO DAILY 04/15/16 [History] Levothyroxine Sodium 175 mcg PO DAILY 04/15/16 [History] Losartan [Cozaar] 50 mg PO DAILY 04/15/16 [History] Metformin [Glucophage] 500 mg PO BIDWM 04/15/16 [History] Mometasone Furoate [Asmanex] 1 puff IH BID 04/15/16 [History] Montelukast Sodium [Singulair] 10 cap PO DAILY 04/15/16 [History] Paroxetine HCl [Paroxetine] 40 mg PO QAM 04/15/16 [History] Perphenazine 8 mg PO DAILY 04/15/16 [History] Tiotropium [Spiriva] 1 cap PO DAILY 04/15/16 [History] Trazodone HCl 200 mg PO HS 04/15/16 [History] Acetaminophen [Tylenol] 650 mg PO TID PRN 06/11/16 [History] BuPROPion SR (12 HR) [Wellbutrin SR] 150 mg PO BID 06/11/16 [History] Cyclobenzaprine [Flexeril] 10 mg PO TID PRN 06/11/16 [History] Multivitamin [One Daily Essential] 1 tab PO DAILY 06/11/16 [History] Olodaterol HCl [Striverdi Respimat] 2 puff IH DAILY 06/11/16 [History] Omeprazole [PriLOSEC] 40 mg PO DAILY 06/11/16 [History] Oxybutynin Chloride [Ditropan Xl] 5 mg PO DAILY 06/11/16 [History] Sennosides/Docusate Sodium [Senna Plus] 1 tab PO BID 06/11/16 [History] Allergies No Known Allergies Allergy (Verified 12/04/15 19:16) All Systems PM: A 10-system review of systems was performed and is negative for pertinent findings except as documented above in the HPI. - Constitutional Vitals: Temp Pulse Resp BP Pulse Ox 97.8 F 74 18 176/80 93 06/11/16 09:48 06/11/16 09:48 06/11/16 09:48 06/11/16 09:48 06/11/16 09:48 General appearance: Present: A&O X 3, no acute distress Exam: - Eye Eye exam: Present: normal appearance, PERRL, EOMI. Absent: nystagmus - Expanded Eye Exam Pupils: Bilateral: regular, round, reactive, size (2) - ENT ENT exam: mucous membranes moist - Neck Neck exam: Present: normal inspection, full ROM, trachea midline, tenderness ( Tenderness to palpation of the cervical vertebral spinous processes). Absent: lymphadenopathy - Respiratory Respiratory exam: Present: normal lung sounds bilaterally. Absent: respiratory distress, wheezes, stridor, accessory muscle use, prolonged expiratory phase - Cardiovascular Cardiovascular exam: Present: regular rate, normal rhythm, normal heart sounds - Abdominal Exam Abdominal exam: Present: soft, Non-Tender, normal bowel sounds. Absent: tenderness, distention, guarding, rebound, rigidity, trauma Gait: not tested/not observed - Back Exam Back exam: Present: normal inspection, full ROM, mild vertebral tenderness ( Vertebral spinous process point tenderness to palpation of the thoracic spine.) . Absent: CVA tenderness (R), CVA tenderness (L) - Neurological Exam Neurological exam: Present: alert, oriented X3 - Psychiatric Psychiatric exam: Present: normal affect, normal mood - Skin Skin exam: Present: warm, dry, intact, normal color Internal Med - H&P Results - Labs CBC & Chem 7: 06/11/16 07:08 06/11/16 07:08
[2016-06-11] MEDS ORDERED: Naloxone 0.4 MG/ML INJ IVP PRN (11:15)
[2016-06-11] MEDS ORDERED: D5% in Water 1,000 ML IVC PRN (11:18)
[2016-06-11] MEDS ORDERED: Dextrose Gel 15 GM PO PRN ×2 (11:18)
[2016-06-11] MEDS ORDERED: *HR* Dextrose 50 % in Water (Syg) 50 ML SYRINGE IVP PRN (11:18)
[2016-06-11] MEDS: Diltiazem CD (24hr) 300 MG CAPSULE PO SCH (13:56)
[2016-06-11] MEDS: Acetaminophen 325 MG TABLET PO PRN ×2 (13:56→19:32)
[2016-06-11] MEDS: Insulin LISPRO 300 UNITS/3 ML VIAL SQ SCH ×3 (13:57→20:21)
--- NOTE | 2016-06-11 19:11 | Electrocardiograph Report ---
[place] [id number] Test Date: 2016-06-11 Pat Name: Mine Fernandez Department: 105 Room: 3B39 Gender: F Food Tester: : 1945 Requested By: Dash Gordon Order Number: [id number] Reading MD: Elizabeth Guaman Measurements Intervals [place] Rate: 68 P: 57 MA: 212 QRS: 28 QRSD: 94 T: 68 QT: 408 QTc: 425 Interpretive Statements SINUS RHYTHM WITH FIRST DEGREE AV BLOCK Electronically Signed On 06-11-2016 19:09:59 EDT by Elizabeth Guaman
[2016-06-11] MEDS: Sennosides/Docusate Sodium TABLET PO SCH (20:20)
[2016-06-11] MEDS: traZODone 50 MG TABLET PO SCH (20:21)
[2016-06-11] MEDS: BuPROPion SR (12 HR) 150 MG TABLET PO SCH (20:21)
[2016-06-11] MEDS: APIXABAN 5 MG TABLET PO SCH (20:21)
[2016-06-12] MEDS ORDERED: *HR* OxyCODONE/APAP 5/325 TABLET PO ONE (00:37)
[2016-06-12 05:31] LABS: Basophils # 0.1 K/mcL (0.0-0.2); Basophils % 0.5 %; Eosinophils # 0.6 K/mcL (0.0-0.6); Eosinophils % 4.6 %; Hematocrit 37.7 % (35.3-44.9); Hemoglobin 12.1 g/dL (11.5-15.4); Immature Granulocytes % 0.7 % (0-4); Lymphocytes % 15.5 %; Mean Corpuscular HGB Conc 32.1 g/dL (31.6-35.5); Mean Corpuscular Hemoglobin 30.3 pg (28.0-33.3); Mean Corpuscular Volume 94.5 fL (83.0-100.0); Monocytes # 1.5 K/mcL (0.0-1.3); Monocytes % 11.3 %; Neutrophils # 8.7 K/mcL (1.6-8.9); Platelet Count 332 K/mcL (140-400); Red Blood Count 3.99 M/mcL (3.82-4.97); Red Cell Distribution Width 14.6 % (11.5-14.5); Segmented Neutrophils % 67.4 %
[2016-06-12 05:55] LABS: BUN/Creatinine Ratio 14 (6-26); Blood Urea Nitrogen 11 mg/dL (7-20); Calcium 9.4 mg/dL (8.6-10.8); Carbon Dioxide 25 mEq/L (19-29); Chloride 105 mEq/L (98-109); Glucose 116 mg/dL (70-99); Osmolality,Calculated 292 (280-300); Potassium 4.1 mEq/L (3.5-4.5); Sodium 141 mEq/L (136-145); eGFR For African Americans > 60 (> 60); eGFR For Non-African Americans > 60 (> 60)
[2016-06-12] MEDS: Tiotropium 18 MCG inhalation IH SCH (07:40)
[2016-06-12] MEDS: Insulin LISPRO 300 UNITS/3 ML VIAL SQ SCH ×4 (07:50→20:33)
[2016-06-12] MEDS: Acetaminophen 325 MG TABLET PO PRN ×2 (07:59→21:16)
[2016-06-12] MEDS: Sennosides/Docusate Sodium TABLET PO SCH ×2 (07:59→21:07)
[2016-06-12] MEDS: APIXABAN 5 MG TABLET PO SCH ×2 (08:00→21:07)
[2016-06-12] MEDS: Diltiazem CD (24hr) 300 MG CAPSULE PO SCH (08:00)
[2016-06-12] MEDS: BuPROPion SR (12 HR) 150 MG TABLET PO SCH ×2 (08:00→21:07)
[2016-06-12] MEDS: Aspirin Enteric Coated 81 MG Tablet PO SCH (08:00)
[2016-06-12] MEDS: Olodaterol Hcl [Striverdi Respimat] IH SCH (08:07)
--- NOTE | 2016-06-12 16:58 | Internal Med Progress Note ---
Date of Encounter: 06/12/16 Time of Encounter: 10:00 - Assessment and plan (1) Fall Current Visit: No Status: Acute Assessment and plan: Patient has multiple admissions for mechanical fall, denies LOC or dizziness. Will continue physical therapy. PT OT evaluation ordered. May need long-term [place] [facility] placement. Qualifiers: Encounter type: initial encounter Qualified Code(s): W19.XXXA - Unspecified fall, initial encounter (2) Wedge compression fracture of T8 vertebra Current Visit: No Status: Acute Assessment and plan: T-spine CT shows worsening T8 fracture, will ask orthopedic consult. Qualifiers: Encounter type: initial encounter Fracture type: closed Qualified Code(s) : S22.060A - Wedge compression fracture of T7-T8 vertebra, initial encounter for closed fracture (3) Atrial fibrillation Current Visit: No Status: Chronic Assessment and plan: Heart rate is well controlled. Continue elliquis for anticoagulation. Qualifiers: Atrial fibrillation type: chronic Qualified Code(s): I48.2 - Chronic atrial fibrillation (4) Hypothyroidism Current Visit: No Status: Chronic Assessment and plan: Continue Synthroid Qualifiers: Hypothyroidism type: unspecified Qualified Code(s): E03.9 - Hypothyroidism , unspecified (5) Hypertension Current Visit: No Status: Chronic Assessment and plan: BP stable, continue home medication Qualifiers: Hypertension type: essential hypertension Qualified Code(s): I10 - Essential (primary) hypertension (6) Diabetes mellitus Current Visit: No Status: Chronic Assessment and plan: sliding scale coverage Qualifiers: Diabetes mellitus type: type 2 Diabetes mellitus complication status: with unspecified complications Diabetes mellitus longterm insulin use: without meterman use Qualified Code(s): E11.8 - Type 2 diabetes mellitus with unspecified complications (7) Right rib fracture Current Visit: Yes Status: Acute Assessment and plan: Chronic and stable Qualifiers: Encounter type: initial encounter Rib fracture type: single rib Fracture type: closed Qualified Code(s): S22.31XA - Fracture of one rib, right side, initial encounter for closed fracture (8) DVT prophylaxis Current Visit: Yes Status: Acute Assessment and plan: Patient is on eliquis for anticoagulation - Time Spent With Patient 25 - 35 minutes - Subjective Interval history: Patient is a 70-year-old female admitted for mechanical fall. Her past medical history is significant for frequent fall, vertebral compression fracture, A. fib on eliquis, hypertension, diabetes. Patient was seen and examined. She looks weak, complaining of pain. Vital signs stable. T-spine CT shows a worsening T8 fracture, orthopedic consult was called. Continue pain medication and physical therapy. Patient may benefit from rehabilitation discharge. - Constitutional Vitals: Temp Pulse Resp BP Pulse Ox 98 F 80 16 123/67 93 06/12/16 15:38 06/12/16 15:38 06/12/16 15:38 06/12/16 15:38 06/12/16 15:38 General appearance: Present: A&O X 3, no acute distress - Head Head exam: Present: atraumatic, normocephalic - Eye Eye exam: Present: PERRL, conjuntiva pink, sclera anicteric Pupils: Present: PERRL - Neck Neck exam general surgery: Present: supple, trachea midline. Absent: lymphadenopathy - Respiratory Respiratory exam: Present: CTAB. Absent: accessory muscle use, rales, rhonchi, wheezes - Cardiovascular Cardiovascular exam: Present: RRR, +S1, +S2. Absent: diastolic murmur, gallop, rubs, systolic murmur - GI/Abdominal GI/Abdominal exam: Present: normal bowel sounds, soft, no peritoneal signs. Absent: distended, tenderness - Extremities Exam Extremities exam: Present: warm, radial pulses palpable and symetrical. Absent : calf tenderness, cyanotic, pedal edema - Neurological Exam Neurological exam: Present: CN II-XII intact, oriented X3, no focal deficits. Absent: pronater drift, facial droop, speech deficit - Skin Skin exam: Present: dry, intact Internal Medicine: Result - Labs CBC & Chem 7: 06/12/16 04:24 06/12/16 04:24 Labs: Short CBC 06/12/16 Range/Units 04:24 WBC 12.9 H (4.3-11.1) K/mcL Hgb 12.1 (11.5-15.4) g/dL Hct 37.7 (35.3-44.9) % Plt Count 332 (140-400) K/mcL Neutrophils # 8.7 (1.6-8.9) K/mcL BMP 06/12/16 04:24 Sodium 141 Potassium 4.1 Chloride 105 Carbon Dioxide 25 BUN 11 Creatinine 0.80 Glucose 116 H Calcium 9.4 - ABG Interpretation ABG results: PT/INR, D-dimer PT 14.8 Seconds (9.4-12.1) H 06/11/16 07:08 Consult Discharge Plan - Plan [facility]errals: [facility]Primary Care Provider[facility] -
[2016-06-12] MEDS ORDERED: Cyanocobalamin (B-12) 1,000 MCG TABLET PO SCH (17:00)
[2016-06-12] MEDS: traZODone 50 MG TABLET PO SCH (21:06)
[2016-06-13] MEDS ORDERED: *HR* OxyCODONE/APAP 5/325 TABLET PO ONE (03:39)
[2016-06-13 04:41] LABS: Basophils # 0.1 K/mcL (0.0-0.2); Basophils % 0.5 %; Eosinophils # 0.8 K/mcL (0.0-0.6); Eosinophils % 5.7 %; Hematocrit 38.8 % (35.3-44.9); Hemoglobin 12.3 g/dL (11.5-15.4); Immature Granulocytes % 0.6 % (0-4); Lymphocytes # 1.8 K/mcL (0.6-4.6); Mean Corpuscular HGB Conc 31.7 g/dL (31.6-35.5); Mean Corpuscular Hemoglobin 29.7 pg (28.0-33.3); Mean Corpuscular Volume 93.7 fL (83.0-100.0); Mean Platelet Volume 10.2 fL (9.4-12.4); Monocytes # 1.4 K/mcL (0.0-1.3); Neutrophils # 9.8 K/mcL (1.6-8.9); Platelet Count 319 K/mcL (140-400); Red Blood Count 4.14 M/mcL (3.82-4.97); Red Cell Distribution Width 14.6 % (11.5-14.5); Segmented Neutrophils % 70.2 %
[2016-06-13 04:51] LABS: BUN/Creatinine Ratio 13 (6-26); Blood Urea Nitrogen 10 mg/dL (7-20); Calcium 9.7 mg/dL (8.6-10.8); Carbon Dioxide 24 mEq/L (19-29); Chloride 104 mEq/L (98-109); Glucose 110 mg/dL (70-99); Osmolality,Calculated 290 (280-300); Potassium 3.9 mEq/L (3.5-4.5); Sodium 140 mEq/L (136-145); eGFR For African Americans > 60 (> 60); eGFR For Non-African Americans > 60 (> 60)
[2016-06-13] MEDS: Tiotropium 18 MCG inhalation IH SCH (08:27)
[2016-06-13] MEDS: BuPROPion SR (12 HR) 150 MG TABLET PO SCH ×2 (09:40→20:25)
[2016-06-13] MEDS: APIXABAN 5 MG TABLET PO SCH ×2 (09:40→20:25)
[2016-06-13] MEDS: Insulin LISPRO 300 UNITS/3 ML VIAL SQ SCH ×4 (09:40→21:29)
[2016-06-13] MEDS: Multivit/Ca/Min/Fe/FA 1 TAB TABLET PO SCH (09:40)
[2016-06-13] MEDS: Perphenazine 8 MG TABLET PO SCH (09:41)
[2016-06-13] MEDS: Olodaterol Hcl [Striverdi Respimat] IH SCH (09:41)
[2016-06-13] MEDS: Sennosides/Docusate Sodium TABLET PO SCH ×2 (09:41→20:25)
[2016-06-13] MEDS: Aspirin Enteric Coated 81 MG Tablet PO SCH (09:41)
[2016-06-13] MEDS: Diltiazem CD (24hr) 300 MG CAPSULE PO SCH (09:41)
--- NOTE | 2016-06-13 14:28 | Neurology - Consult Note ---
<Von Grimaldo - Last Filed: 06/13/16 14:21> Date of Encounter: 06/13/16 Time of Encounter: 14:21 Assessment and Plan (1) Resting tremor Current Visit: Yes Status: Acute He states that his gait has been shuffling, occasional resting tremor, short term memory loss, and micrographia, but no muscle rigidity, although the symptoms started several months ago but they are more frequent recently, patient does have some features of Parkinson disease, patient will definitely need fall precaution, physical therapy evaluation and possible placement of short-term rehabilitation, patient can be started on levodopa to see improvement of his neurological symptoms. History of Present Illness Chief complaint: Frequent falls and resting tremor HPI: Ms. Fernandez is a 70 year old female with a history of atrial fibrillation on Eliquis, morbid obesity, COPD, diabetes type 2, CVA, hypertension and depression who presented to the ER with chief complaint of recent frequent falls , since 2 months ago patient started to have a weakness of bilateral lower extremities that he fell more than 15 times at home although he has been using a walker. All the falls were due to weakness of the legs and mechanical, no loss of consciousness or lightheadedness, patient was recently discharged from this hospital 2 months ago, and he has a recent history of acute compression fracture of T8 and chronic T12 fractures, patient has been seen by orthopedic clinic as outpatient and he was recommended no surgical intervention. Neurology service was consulted today for patient's recent history of frequent falls and resting tremor, possibility of Parkinson disease. After talking to patient, he states that his gait has been shuffling, occasional resting tremor, short term memory loss, and micrographia, although symptoms started several months ago but they are more frequent recently. Patient has never been diagnosed with Parkinson's disease and never taken Parkinson medication in the past. Past Med Surg Social Fam HX - Past Medical History Medical history: atrial fibrillation, COPD, CVA, diabetes, hyperlipidemia, hypertension, thyroid disease, other Psychiatric history: anxiety, depression - Past Surgical History Surgical History: herniorrhaphy, orthopedic, other, other - Social History Smoking Status: Never smoker Smokeless Tobacco Status: No Alcohol use: none Drug use: none - Family History Mother History Unknown: Yes Father Living Status: Cause of : Heart Attack Hx Family Cardiac Disorders: Yes Medications and Allergies Apixaban [Eliquis] 5 mg PO BID 04/15/16 [History] Aspirin [Lo-Dose Aspirin EC] 162 mg PO DAILY 04/15/16 [History] Atorvastatin Calcium [Lipitor] 20 mg PO DAILY 04/15/16 [History] Cyanocobalamin (B-12) [Vitamin B12] 1,000 cap PO QWEEK 04/15/16 [History] Diltiazem HCl [Diltiazem 24Hr ER] 300 mg PO DAILY 04/15/16 [History] Levothyroxine Sodium 175 mcg PO DAILY 04/15/16 [History] Losartan [Cozaar] 50 mg PO DAILY 04/15/16 [History] Metformin [Glucophage] 500 mg PO BIDWM 04/15/16 [History] Mometasone Furoate [Asmanex] 1 puff IH BID 04/15/16 [History] Montelukast Sodium [Singulair] 10 cap PO DAILY 04/15/16 [History] Paroxetine HCl [Paroxetine] 40 mg PO QAM 04/15/16 [History] Perphenazine 8 mg PO DAILY 04/15/16 [History] Tiotropium [Spiriva] 1 cap PO DAILY 04/15/16 [History] Trazodone HCl 200 mg PO HS 04/15/16 [History] Acetaminophen [Tylenol] 650 mg PO TID PRN 06/11/16 [History] BuPROPion SR (12 HR) [Wellbutrin SR] 150 mg PO BID 06/11/16 [History] Cyclobenzaprine [Flexeril] 10 mg PO TID PRN 06/11/16 [History] Multivitamin [One Daily Essential] 1 tab PO DAILY 06/11/16 [History] Olodaterol HCl [Striverdi Respimat] 2 puff IH DAILY 06/11/16 [History] Omeprazole [PriLOSEC] 40 mg PO DAILY 06/11/16 [History] Oxybutynin Chloride [Ditropan Xl] 5 mg PO DAILY 06/11/16 [History] Sennosides/Docusate Sodium [Senna Plus] 1 tab PO BID 06/11/16 [History] Allergies No Known Allergies Allergy (Verified 12/04/15 19:16) All Systems: A 10-system review of systems was performed and is negative for pertinent findings except as documented above in the HPI. Review of Systems: He admits bilateral lower extremities weakness, recently his gait has been shuffling, occasional resting tremor, short term memory loss, and micrographia, denies muscle rigidity, headache, facial droop, slurred speech, tingling/ numbness/weakness of upper extremities, urinary/bowel incontinence. Physical Examination - Vital Signs Vital Signs: Initial Vital Signs Temp Pulse Resp BP Pulse Ox 98.7 F 68 20 144/87 100 06/11/16 06:30 06/11/16 06:30 06/11/16 06:30 06/11/16 06:30 06/11/16 06:30 - Constitutional General appearance: comfortable - Neurologic Sensorimotor examination: intact Detailed motor examination: grossly full strength in all extremities, full strength in all major muscle groups Motor examination - right side: 5/5: deltoids, biceps, triceps, wrist flexion, wrist extension, wet trimmer, hip flexors, quadriceps, plantarflexion Motor examination - left side: 5/5: deltoids, biceps, triceps, wrist flexion, wrist extension, hip flexors, wet trimmer, quadriceps, plantarflexion Detailed sensory examination: intact Reflex and gait examination: intact Reflexes: Biceps: 2+, Triceps: 2+, Brachioradialis: 2+, Patella: 2+, Achilles: 2 + Mental Status Examination: awake, alert, oriented to person, oriented to place, oriented to time, follows commands appropriately, answers questions appropriately, no agnosia, no aphasia, no aproxia, impaired memory (Short-term) Cranial nerve examination: PERRL, EOMI, sensory to face intact, mastication intact, no facial asymmetry is present, no dysarthria, hearing is intact symmetrically, tongue protrudes midline, no atrophy or facial fasiculations present Cerebellar examination: no dysmetria, no difficulty with rapid alternating movements Results - Laboratory Findings CBC and BMP: 06/13/16 03:42 06/13/16 03:42 Abnormal lab findings: Abnormal lab results WBC 14.0 K/mcL (4.3-11.1) H 06/13/16 03:42 RDW 14.6 % (11.5-14.5) H 06/13/16 03:42 Neutrophils # 9.8 K/mcL (1.6-8.9) H 06/13/16 03:42 Monocytes # 1.4 K/mcL (0.0-1.3) H 06/13/16 03:42 Eosinophils # 0.8 K/mcL (0.0-0.6) H 06/13/16 03:42 PT 14.8 Seconds (9.4-12.1) H 06/11/16 07:08 Glucose 110 mg/dL (70-99) H 06/13/16 03:42 POC Glucose 174 (58-89) H 06/13/16 11:53 Ur Leukocyte Esterase Trace (Negative) H 06/11/16 06:55 Urine Microscopic RBC 3-5 per hpf (0-3) H 06/11/16 06:55 Urine Microscopic WBC 3-5 per hpf (0-3) H 06/11/16 06:55 Ur Culture Indicated? YES (NO) A 06/11/16 06:55 Consult Discharge Plan - Plan [facility] Provider[facility] - <Juan Fischre - Last Filed: 06/13/16 18:25> Date of Encounter: 06/13/16 Time of Encounter: 18:10 Assessment and Plan (1) Resting tremor Current Visit: Yes Status: Acute As above. I did examine the patient independently and I concur with the assessment above. Patient does have signs consistent with Parkinson's disease. I recommend a trial of levodopa 25/100 to start with one twice a day and then titrate up to 3 times a day dosing. I would like to follow up with this patient after discharge from the hospital within the month to see whether or not symptoms are improving. History of Present Illness HPI: The chart was reviewed, the patient was seen and examined independently. The case was discussed with the resident on service, I agree with his assessment and history as stated above. Patient presents with a recent history of tremors and several recent episodes of falling. She does have several symptoms consistent with parkinsonism as stated above. CT head was unrevealing. All Systems: A 10-system review of systems was performed and is negative for pertinent findings except as documented above in the HPI. Review of Systems: Review of systems is correct as stated above. Physical Examination - Vital Signs Vital Signs: Initial Vital Signs Temp Pulse Resp BP Pulse Ox 98.7 F 68 20 144/87 100 06/11/16 06:30 06/11/16 06:30 06/11/16 06:30 06/11/16 06:30 06/11/16 06:30 - Neurologic Detailed motor examination: other (Resting tremor is present of both lower extremities right greater than left.) Results - Laboratory Findings CBC and BMP: 06/13/16 03:42 06/13/16 03:42 Abnormal lab findings: Abnormal lab results WBC 14.0 K/mcL (4.3-11.1) H 06/13/16 03:42 RDW 14.6 % (11.5-14.5) H 06/13/16 03:42 Neutrophils # 9.8 K/mcL (1.6-8.9) H 06/13/16 03:42 Monocytes # 1.4 K/mcL (0.0-1.3) H 06/13/16 03:42 Eosinophils # 0.8 K/mcL (0.0-0.6) H 06/13/16 03:42 PT 14.8 Seconds (9.4-12.1) H 06/11/16 07:08 Glucose 110 mg/dL (70-99) H 06/13/16 03:42 POC Glucose 136 (58-89) H 06/13/16 16:55 Ur Leukocyte Esterase Trace (Negative) H 06/11/16 06:55 Urine Microscopic RBC 3-5 per hpf (0-3) H 06/11/16 06:55 Urine Microscopic WBC 3-5 per hpf (0-3) H 06/11/16 06:55 Ur Culture Indicated? YES (NO) A 06/11/16 06:55
--- NOTE | 2016-06-13 17:12 | Spine Progress Note ---
Date of Encounter: 06/13/16 Time of Encounter: 17:09 - Assessment and Plan (1) Hematuria Current Visit: Yes Status: Acute (2) Osteopenia Current Visit: Yes Status: Chronic on exam he is obese and in mild distress. Afebrile vital signs stable. He has minimal tenderness to palpation in the thoracic spine.He is morbidly obese.e is neurovascularly intact with regard to his bilateral lower extremities. Incidentally,he has gross hematuria in his Shrestha bag. Assessment: 1) vertebral compression fracture T8 2) osteopenia 3) post traumatic hematuria Plan: Would continue with nonoperative treatment of compression fracture. This would include analgesics and mobilization as tolerated. e should be placed on osteoprotective agents such as calcium, vitamin D , nasal calcitonin, Fosamax or the like to lessen than the risk of further fragility fractures. I would consider a urology consult regarding his post traumatic hematuria. Qualifiers: Osteopenia location: spine Qualified Code(s): M85.88 - Other specified disorders of bone density and structure, other site Subjective Principal diagnosis: thoracic fracture Interval history: Mr. Linda is a 70-year-old obese and osteopenic male well known to the practice who has seen in both spine surgery and interventional pain management within the last couple of weeks. He has known vertebral compression fracture history and was evaluated for a T8 vertebral compression fracture. Evaluation by spine and subsequently interventional pain management suggested non operative treatment only. He was admitted with continued complaints of pain and we are asked to comment. Objective Vital signs: Vital Signs Temp Pulse Resp BP Pulse Ox 06/13/16 14:54 97.8 F 96 18 153/70 92 06/13/16 11:54 98.0 F 88 17 130/75 93 06/13/16 08:22 12 92 06/13/16 06:34 98.0 F 89 17 129/76 91 06/13/16 04:09 98.0 F 80 16 150/71 90 06/12/16 23:39 98.3 F 76 16 149/64 92 06/12/16 18:38 98 F 72 16 111/62 94 Intake and Output 06/13/16 06/13/16 06/13/16 07:59 15:59 23:59 Intake Total 1280 / 1280 Output Total 400 / 400 Balance -400 / -400 1280 / 1280 Intake: Oral 1280 / 1280 Output: Urine 400 / 400 Other: Meal Lunch Percent of Meal Consumed 100% Weight 142.609 kg Blood Glucose* 137 174 136 Patient Weight 06/13/16 23:59 Weight 142.609 kg - Labs CBC & BMP: 06/13/16 03:42 06/13/16 03:42 Labs: Abnormal lab results WBC 14.0 K/mcL (4.3-11.1) H 06/13/16 03:42 RDW 14.6 % (11.5-14.5) H 06/13/16 03:42 Neutrophils # 9.8 K/mcL (1.6-8.9) H 06/13/16 03:42 Monocytes # 1.4 K/mcL (0.0-1.3) H 06/13/16 03:42 Eosinophils # 0.8 K/mcL (0.0-0.6) H 06/13/16 03:42 PT 14.8 Seconds (9.4-12.1) H 06/11/16 07:08 Glucose 110 mg/dL (70-99) H 06/13/16 03:42 POC Glucose 136 (58-89) H 06/13/16 16:55 Ur Leukocyte Esterase Trace (Negative) H 06/11/16 06:55 Urine Microscopic RBC 3-5 per hpf (0-3) H 06/11/16 06:55 Urine Microscopic WBC 3-5 per hpf (0-3) H 06/11/16 06:55 Ur Culture Indicated? YES (NO) A 06/11/16 06:55 Consult Discharge Plan - Plan [facility]: [facility] [Primary Care Provider] -
--- NOTE | 2016-06-13 19:40 | Internal Med Progress Note ---
Date of Encounter: 06/13/16 Time of Encounter: 10:00 - Assessment and plan (1) Fall Current Visit: No Status: Acute Assessment and plan: Patient has multiple admissions for mechanical fall, denies LOC or dizziness. Will continue physical therapy. PT OT evaluation ordered. May need long-term fpc placement. Neurology saw pt, consider Parkinson disease, will try levodopa and OP follow up. Qualifiers: Encounter type: initial encounter Qualified Code(s): W19.XXXA - Unspecified fall, initial encounter (2) Wedge compression fracture of T8 vertebra Current Visit: No Status: Acute Assessment and plan: T-spine CT shows worsening T8 fracture, orthopedic consult saw pt. Qualifiers: Encounter type: initial encounter Fracture type: closed Qualified Code(s) : S22.060A - Wedge compression fracture of T7-T8 vertebra, initial encounter for closed fracture (3) Atrial fibrillation Current Visit: No Status: Chronic Assessment and plan: Heart rate is well controlled. Continue elliquis for anticoagulation. Qualifiers: Atrial fibrillation type: chronic Qualified Code(s): I48.2 - Chronic atrial fibrillation (4) Hypothyroidism Current Visit: No Status: Chronic Assessment and plan: Continue Synthroid Qualifiers: Hypothyroidism type: unspecified Qualified Code(s): E03.9 - Hypothyroidism , unspecified (5) Hypertension Current Visit: No Status: Chronic Assessment and plan: BP stable, continue home medication Qualifiers: Hypertension type: essential hypertension Qualified Code(s): I10 - Essential (primary) hypertension (6) Diabetes mellitus Current Visit: No Status: Chronic Assessment and plan: sliding scale coverage Qualifiers: Diabetes mellitus type: type 2 Diabetes mellitus complication status: with unspecified complications 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 use: without double surface operator use Qualified Code(s): E11.8 - Type 2 diabetes mellitus with unspecified complications (7) Right rib fracture Current Visit: Yes Status: Acute Assessment and plan: Chronic and stable Qualifiers: Encounter type: initial encounter Rib fracture type: single rib Fracture type: closed Qualified Code(s): S22.31XA - Fracture of one rib, right side, initial encounter for closed fracture (8) DVT prophylaxis Current Visit: Yes Status: Acute Assessment and plan: Patient is on eliquis for anticoagulation - Time Spent With Patient 25 - 35 minutes - Subjective Interval history: Patient is a 70-year-old female admitted for mechanical fall. Her past medical history is significant for frequent fall, vertebral compression fracture, A. fib on eliquis, hypertension, diabetes. Patient was seen and examined. She looks weak, complaining of pain but well controlled by pain med. Vital signs stable. Spine surgery consult appreciated , cont nonoperative treatment. Neurology consult appreciated, pt has some feature of parkinson, will try Levodopa and outpatient F/U. Patient will benefit from rehabilitation discharge. Pt has transient hematuria this afternoon in Shrestha bag after moving from bed to chair, denies abd pain, Folay catheter cont draining well. Consider traumatic, improved already, will continue close monitoring. - Constitutional Vitals: Temp Pulse Resp BP Pulse Ox 98.1 F 78 16 140/76 92 06/13/16 19:13 06/13/16 19:13 06/13/16 19:13 06/13/16 19:13 06/13/16 19:13 General appearance: Present: A&O X 3, no acute distress - Head Head exam: Present: atraumatic, normocephalic - Eye Eye exam: Present: PERRL, conjuntiva pink, sclera anicteric Pupils: Present: PERRL - Neck Neck exam general surgery: Present: supple, trachea midline. Absent: lymphadenopathy - Respiratory Respiratory exam: Present: CTAB. Absent: accessory muscle use, rales, rhonchi, wheezes - Cardiovascular Cardiovascular exam: Present: RRR, +S1, +S2. Absent: diastolic murmur, gallop, rubs, systolic murmur - GI/Abdominal GI/Abdominal exam: Present: normal bowel sounds, soft, no peritoneal signs. Absent: distended, tenderness - Extremities Exam Extremities exam: Present: warm, radial pulses palpable and symetrical. Absent : calf tenderness, cyanotic, pedal edema - Neurological Exam Neurological exam: Present: CN II-XII intact, oriented X3, no focal deficits. Absent: pronater drift, facial droop, speech deficit - Skin Skin exam: Present: dry, intact Internal Medicine: Result - Labs CBC & Chem 7: 06/13/16 03:42 06/13/16 03:42 Labs: Short CBC 06/13/16 Range/Units 03:42 WBC 14.0 H (4.3-11.1) K/mcL Hgb 12.3 (11.5-15.4) g/dL Hct 38.8 (35.3-44.9) % Plt Count 319 (140-400) K/mcL Neutrophils # 9.8 H (1.6-8.9) K/mcL BMP 06/13/16 03:42 Sodium 140 Potassium 3.9 Chloride 104 Carbon Dioxide 24 BUN 10 Creatinine 0.77 Glucose 110 H Calcium 9.7 - ABG Interpretation ABG results: PT/INR, D-dimer PT 14.8 Seconds (9.4-12.1) H 06/11/16 07:08 Consult Discharge Plan - Plan [facility]errals: [facility] [Primary Care Provider] -
[2016-06-13] MEDS: traZODone 50 MG TABLET PO SCH (20:25)
[2016-06-13] MEDS: Carbidopa/Levodopa 25/100 TABLET PO SCH (21:49)
[2016-06-14 05:38] LABS: Basophils # 0.1 K/mcL (0.0-0.2); Basophils % 0.4 %; Eosinophils # 0.7 K/mcL (0.0-0.6); Eosinophils % 4.4 %; Hematocrit 40.8 % (35.3-44.9); Hemoglobin 12.9 g/dL (11.5-15.4); Immature Granulocytes % 0.5 % (0-4); Lymphocytes # 1.8 K/mcL (0.6-4.6); Lymphocytes % 11.7 %; Mean Corpuscular HGB Conc 31.6 g/dL (31.6-35.5); Mean Corpuscular Hemoglobin 29.5 pg (28.0-33.3); Mean Corpuscular Volume 93.4 fL (83.0-100.0); Mean Platelet Volume 10.8 fL (9.4-12.4); Monocytes # 1.4 K/mcL (0.0-1.3); Monocytes % 9.5 %; Platelet Count 348 K/mcL (140-400); Red Blood Count 4.37 M/mcL (3.82-4.97); Red Cell Distribution Width 14.6 % (11.5-14.5); Segmented Neutrophils % 73.5 %
[2016-06-14 05:53] LABS: BUN/Creatinine Ratio 14 (6-26); Blood Urea Nitrogen 10 mg/dL (7-20); Calcium 9.5 mg/dL (8.6-10.8); Carbon Dioxide 25 mEq/L (19-29); Chloride 103 mEq/L (98-109); Glucose 125 mg/dL (70-99); Osmolality,Calculated 287 (280-300); Potassium 3.9 mEq/L (3.5-4.5); Sodium 138 mEq/L (136-145); eGFR For African Americans > 60 (> 60); eGFR For Non-African Americans > 60 (> 60)
[2016-06-14] MEDS: Tiotropium 18 MCG inhalation IH SCH (07:56)
[2016-06-14] MEDS: Sennosides/Docusate Sodium TABLET PO SCH (08:03)
[2016-06-14] MEDS: Diltiazem CD (24hr) 300 MG CAPSULE PO SCH (08:03)
[2016-06-14] MEDS: Aspirin Enteric Coated 81 MG Tablet PO SCH (08:03)
[2016-06-14] MEDS: Carbidopa/Levodopa 25/100 TABLET PO SCH (08:03)
[2016-06-14] MEDS: Perphenazine 8 MG TABLET PO SCH (08:03)
[2016-06-14] MEDS: Multivit/Ca/Min/Fe/FA 1 TAB TABLET PO SCH (08:04)
[2016-06-14] MEDS: APIXABAN 5 MG TABLET PO SCH (08:04)
[2016-06-14] MEDS: Olodaterol Hcl [Striverdi Respimat] IH SCH (08:04)
[2016-06-14] MEDS: Insulin LISPRO 300 UNITS/3 ML VIAL SQ SCH (08:04)
[2016-06-14] MEDS: BuPROPion SR (12 HR) 150 MG TABLET PO SCH (08:16)
--- NOTE | 2016-06-14 10:37 | Discharge Summary ---
Date of Encounter: 06/14/16 Time of Encounter: 10:00 - Discharge Diagnosis (1) Fall Priority: Primary Status: Acute Qualifiers: Encounter type: initial encounter Qualified Code(s): W19.XXXA - Unspecified fall, initial encounter (2) Wedge compression fracture of T8 vertebra Priority: Primary Status: Acute Qualifiers: Encounter type: initial encounter Fracture type: closed Qualified Code(s) : S22.060A - Wedge compression fracture of T7-T8 vertebra, initial encounter for closed fracture (3) Atrial fibrillation Priority: Secondary Status: Chronic Qualifiers: Atrial fibrillation type: chronic Qualified Code(s): I48.2 - Chronic atrial fibrillation (4) Hypothyroidism Priority: Secondary Status: Chronic Qualifiers: Hypothyroidism type: unspecified Qualified Code(s): E03.9 - Hypothyroidism , unspecified (5) Hypertension Priority: Secondary Status: Chronic Qualifiers: Hypertension type: essential hypertension Qualified Code(s): I10 - Essential (primary) hypertension (6) Diabetes mellitus Priority: Secondary Status: Chronic Qualifiers: Diabetes mellitus type: type 2 Diabetes mellitus complication status: with unspecified complications 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: without penitentiary use Qualified Code(s): E11.8 - Type 2 diabetes mellitus with unspecified complications (7) Right rib fracture Priority: Secondary Status: Acute Qualifiers: Encounter type: initial encounter Rib fracture type: single rib Fracture type: closed Qualified Code(s): S22.31XA - Fracture of one rib, right side, initial encounter for closed fracture (8) DVT prophylaxis Priority: Secondary Status: Acute (9) Parkinson disease Priority: Primary Status: Suspected - Discharge Medications Prescriptions: Carbidopa/Levodopa 25/100 [Sinemet 25/100] 1 each PO BID #60 tablet Home Medications: Apixaban [Eliquis] 5 mg PO BID 04/15/16 [History] Aspirin [Lo-Dose Aspirin EC] 162 mg PO DAILY 04/15/16 [History] Atorvastatin Calcium [Lipitor] 20 mg PO DAILY 04/15/16 [History] Cyanocobalamin (B-12) [Vitamin B12] 1,000 cap PO QWEEK 04/15/16 [History] Diltiazem HCl [Diltiazem 24Hr ER] 300 mg PO DAILY 04/15/16 [History] Levothyroxine Sodium 175 mcg PO DAILY 04/15/16 [History] Losartan [Cozaar] 50 mg PO DAILY 04/15/16 [History] Metformin [Glucophage] 500 mg PO BIDWM 04/15/16 [History] Mometasone Furoate [Asmanex] 1 puff IH BID 04/15/16 [History] Montelukast Sodium [Singulair] 10 cap PO DAILY 04/15/16 [History] Paroxetine HCl [Paroxetine] 40 mg PO QAM 04/15/16 [History] Perphenazine 8 mg PO DAILY 04/15/16 [History] Tiotropium [Spiriva] 1 cap PO DAILY 04/15/16 [History] Trazodone HCl 200 mg PO HS 04/15/16 [History] Acetaminophen [Tylenol] 650 mg PO TID PRN 06/11/16 [History] BuPROPion SR (12 HR) [Wellbutrin SR] 150 mg PO BID 06/11/16 [History] Cyclobenzaprine [Flexeril] 10 mg PO TID PRN 06/11/16 [History] Multivitamin [One Daily Essential] 1 tab PO DAILY 06/11/16 [History] Olodaterol HCl [Striverdi Respimat] 2 puff IH DAILY 06/11/16 [History] Omeprazole [PriLOSEC] 40 mg PO DAILY 06/11/16 [History] Oxybutynin Chloride [Ditropan Xl] 5 mg PO DAILY 06/11/16 [History] Sennosides/Docusate Sodium [Senna Plus] 1 tab PO BID 06/11/16 [History] Carbidopa/Levodopa 25/100 [Sinemet 25/100] 1 each PO BID #60 tablet 06/14/16 [Rx ] Allergies/Adverse Reactions: Allergies No Known Allergies Allergy (Verified 12/04/15 19:16) - Notes to Outpatient Provider Patient was placed on levodopa/carbidopa 25/100 bid trial for suspected Parkinson disease. Please follow-up with neurology as outpatient. Date of admission: 06/11/16 09:08 [facility] care [facility] Consults: 06/11/16 10:13 Consult to Clinical Staff Anesthesiologist [CONS] Routine Reason for SW Consult: Discharge planning, would like to go to [facility] 06/11/16 11:15 Consult to Occupational Therapy [CONS] Routine Comment: Evaluate, develop and implement POC Consult to Physical Therapy [CONS] Routine Comment: Evaluate, develop and implement POC 06/12/16 10:47 Consult to Orthopedic Surgery [CONS] Routine Consulting Provider: [facility] Reason for Consult: T8 compression fracture Call Completed: Yes 06/13/16 12:23 Consult to Neurology [CONS] Routine Consulting Provider: [facility] Reason for Consult: Fall, r/o parkinson dis Call Completed: Yes Discharging clinician: Mercedes Haynes Anticipated date of discharge: 06/14/16 - Patient Status Disposition: Transfer Inpatient Rehab Fac Condition: Fair Overall status at discharge: patient is back to baseline - Discharge Instructions [facility] Up With: [facility] [Primary Care Provider[facility] - Juan Fischer DO [Partnered Physician] - 07/12/16 - Diet and Activity Activity: as per physical therapy, increase activity as tolerated Diet: diabetic diet Interval History: Ms. Fernandez is a 70 year old female presents to the emergency department for evaluation of a fall injury this morning at 1am. The patient states that she was walking with the use of her walker and was going to the bathroom when "my legs gave out on me again". She states that she fell backwards, striking the back of her head against the floor. She is on blood thinners. She was recently admitted on April was discharged to a rehabilitation where she stayed for 4 weeks and was discharged back home. She has a history of acute compression fracture of T8 and chronic T12 fracture. She has been seen by Dr. Willett as outpatient recently on 05/21 and recommended no surgical intervention. sHe reports that her back pain is better with rehabilitation and she was told that she does not need surgery for now. She is requesting admission to the hospital for her generalized weakness, as well as frequent falls for the possibility of an ECF placement. She denies any loss of consciousness, nausea, vomiting, visual disturbances. She denies any chest pain, palpitations, shortness of breath either now or at the time of her fall. She denies any abdominal pain, blood in her stool, blood in her urine, or urinary symptoms. She denies any recent illnesses, fever, chills, or cough. Hospital course: Ms. Fernandez is a 70 year old female admitted for fall and veterbral compression fracture. Patient was placed on fall precaution, and physical therapy. She was recommended to have a inpatient rehabilitation. Orthopedic surgeons saw patient and recommended non operative treatment for fracture. Patient was suspected Parkinson disease and a neurology consult was called. Patient was placed on Levodopa trial, and will follow up with neurology as outpatient. Patient has a chronic leukocytosis, no signs of infection. I saw and examined the patient today, she is awake alert, oriented 3. Denies dizziness or lightheadedness. Vitals are stable. Hematuria has resolved. Patient with discharge to rehabilitation for further treatment. - Time Spent with Patient Total time spent providing and/or coordinating discharge services: 25 min Less than 30 minutes - Constitutional Vitals: Temp Pulse Resp BP Pulse Ox 98.3 F 91 16 168/77 91 06/14/16 07:30 06/14/16 07:30 06/14/16 07:58 06/14/16 07:30 06/14/16 07:58 General appearance: Present: A&O X 3, no acute distress - Head Head exam: Present: atraumatic, normocephalic - Eye Eye exam: Present: PERRL, conjuntiva pink, sclera anicteric Pupils: Present: PERRL - Neck Neck exam general surgery: Present: supple, trachea midline. Absent: lymphadenopathy - Respiratory Respiratory exam: Present: CTAB. Absent: accessory muscle use, rales, rhonchi, wheezes - Cardiovascular Cardiovascular exam: Present: RRR, +S1, +S2. Absent: diastolic murmur, gallop, rubs, systolic murmur - GI/Abdominal GI/Abdominal exam: Present: normal bowel sounds, soft, no peritoneal signs. Absent: distended, tenderness - Extremities Exam Extremities exam: Present: warm, radial pulses palpable and symetrical. Absent : calf tenderness, cyanotic, pedal edema - Neurological Exam Neurological exam: Present: CN II-XII intact, oriented X3, no focal deficits. Absent: pronater drift, facial droop, speech deficit - Skin Skin exam: Present: dry, intact
--- NOTE | 2016-06-14 10:50 | Physician Discharge Referral ---
ExtendedCare Referral Info Provider in Charge after Transfer: Other - Diagnosis (1) Fall Priority: Primary Status: Acute (2) Wedge compression fracture of T8 vertebra Priority: Primary Status: Acute (3) Atrial fibrillation Priority: Secondary Status: Chronic (4) Hypothyroidism Priority: Secondary Status: Chronic (5) Hypertension Priority: Secondary Status: Chronic (6) Diabetes mellitus Priority: Secondary Status: Chronic (7) Right rib fracture Priority: Secondary Status: Acute (8) DVT prophylaxis Priority: Secondary Status: Acute (9) Parkinson disease Priority: Primary Status: Suspected - Transfer Medications Prescriptions: Carbidopa/Levodopa 25/100 [Sinemet 25/100] 1 each PO BID #60 tablet Home Medications: Apixaban [Eliquis] 5 mg PO BID 04/15/16 [History] Aspirin [Lo-Dose Aspirin EC] 162 mg PO DAILY 04/15/16 [History] Atorvastatin Calcium [Lipitor] 20 mg PO DAILY 04/15/16 [History] Cyanocobalamin (B-12) [Vitamin B12] 1,000 cap PO QWEEK 04/15/16 [History] Diltiazem HCl [Diltiazem 24Hr ER] 300 mg PO DAILY 04/15/16 [History] Levothyroxine Sodium 175 mcg PO DAILY 04/15/16 [History] Losartan [Cozaar] 50 mg PO DAILY 04/15/16 [History] Metformin [Glucophage] 500 mg PO BIDWM 04/15/16 [History] Mometasone Furoate [Asmanex] 1 puff IH BID 04/15/16 [History] Montelukast Sodium [Singulair] 10 cap PO DAILY 04/15/16 [History] Paroxetine HCl [Paroxetine] 40 mg PO QAM 04/15/16 [History] Perphenazine 8 mg PO DAILY 04/15/16 [History] Tiotropium [Spiriva] 1 cap PO DAILY 04/15/16 [History] Trazodone HCl 200 mg PO HS 04/15/16 [History] Acetaminophen [Tylenol] 650 mg PO TID PRN 06/11/16 [History] BuPROPion SR (12 HR) [Wellbutrin SR] 150 mg PO BID 06/11/16 [History] Cyclobenzaprine [Flexeril] 10 mg PO TID PRN 06/11/16 [History] Multivitamin [One Daily Essential] 1 tab PO DAILY 06/11/16 [History] Olodaterol HCl [Striverdi Respimat] 2 puff IH DAILY 06/11/16 [History] Omeprazole [PriLOSEC] 40 mg PO DAILY 06/11/16 [History] Oxybutynin Chloride [Ditropan Xl] 5 mg PO DAILY 06/11/16 [History] Sennosides/Docusate Sodium [Senna Plus] 1 tab PO BID 06/11/16 [History] Carbidopa/Levodopa 25/100 [Sinemet 25/100] 1 each PO BID #60 tablet 06/14/16 [Rx ] Allergies/Adverse Reactions: Allergies No Known Allergies Allergy (Verified 12/04/15 19:16) - Respiratory Orders Smoking Cessation: Smoking cessation has been advised. For more information, call the [place] Tobacco Quit Line at 5-563-KPNM-NOW. - Advance Directives Code Status: Full Code - Rehabiliation Orders Rehab Orders: Evaluation for Physical Therapy, Evaluation for Occupational Therapy - Diet Orders No Concentrated Sweets CERTIFICATION: I certify that the transfer of the above named patient to an Extended Care Facility is necessary for the continuing treatment of the diagnosis listed. The above information is true and accurate reflection of patient's current condition. Confidential - Redisclosure prohibited without a patient's written consent.
[2016-06-14 11:31] VITALS: BP 119/62
== END 2016-06-14 13:20 ==
LOC: 3BNU 06:28 → EMEROO 06:28 → SUATTDRO 09:08 → 3BNU 09:37
PROVIDERS: ADMIT Internal Medicine; ATTEND Internal Medicine

== ENCOUNTER 2017-04-16 06:55 | Inpatient (IN) ==
[2017-04-16] MEDS ORDERED: methylPREDNISolone 125 MG/2 ML VIAL IVP ONE (07:02)
[2017-04-16] MEDS ORDERED: Ipratropium/Albuterol Neb 3 ML IH ONE ×2 (07:02→08:19)
--- NOTE | 2017-04-16 07:04 | Emergency Department Note ---
Disposition Clinical Impression: Bronchitis COPD (chronic obstructive pulmonary disease) Qualifiers: COPD type: unspecified COPD Qualified Code(s): J44.9 - Chronic obstructive pulmonary disease, unspecified Disposition: Admitted As Inpatient Condition: Fair Time of Disposition: 08:40 General Adult HPI - General Chief complaint: ED Shortness of Breath/Dyspnea Stated complaint: low SPO2/cough Time Seen by Provider: 04/16/17 07:02 Source: patient, EMS Mode of arrival: EMS Limitations: no limitations Nursing Notes Reviewed: Yes Vital Signs Reviewed: Yes - History of Present Illness HPI Narrative: 71-year-old female with a history of COPD, ACS presents for evaluation of dyspnea. Patient states symptom onset was approximately week ago. Patient is oxygen dependent on 2-3 L. Patient does reside in a nursing facility. Patient was noted to be hypoxic at 80% however patient was not wearing her oxygen earlier today. Patient does note a nonproductive cough for the past week. Does no chest pain associated with a cough. Denies any fevers. Denies any chest pain other than exacerbated with coughing. Denies any abdominal pain. Patient states that he has been using his inhaler at home however does not recall being on any steroids. - Related Data Home Medications Medication Instructions Recorded Confirmed Apixaban [Eliquis] 5 mg PO BID 04/15/16 04/16/17 Aspirin [Lo-Dose Aspirin EC] 162 mg PO DAILY 04/15/16 04/16/17 Atorvastatin Calcium [Lipitor] 20 mg PO DAILY 04/15/16 04/16/17 Cyanocobalamin (B-12) [Vitamin B12] 1,000 cap PO QWEEK 04/15/16 04/16/17 Diltiazem HCl [Diltiazem 24Hr ER] 300 mg PO DAILY 04/15/16 04/16/17 Losartan [Cozaar] 50 mg PO DAILY 04/15/16 04/16/17 Paroxetine HCl [Paroxetine] 40 mg PO QAM 04/15/16 04/16/17 Perphenazine 8 mg PO DAILY 04/15/16 04/16/17 Tiotropium [Spiriva] 1 cap PO DAILY 04/15/16 04/16/17 Trazodone HCl 200 mg PO HS 04/15/16 04/16/17 metFORMIN [Glucophage] 500 mg PO BIDWM 04/15/16 04/16/17 Acetaminophen [Tylenol] 650 mg PO TID PRN 06/11/16 04/16/17 BuPROPion SR (12 HR) [Wellbutrin 150 mg PO QAM 06/11/16 04/16/17 SR] Multivitamin [One Daily Essential] 1 tab PO DAILY 06/11/16 04/16/17 Omeprazole [PriLOSEC] 40 mg PO DAILY 06/11/16 04/16/17 Oxybutynin Chloride [Ditropan Xl] 5 mg PO DAILY 06/11/16 04/16/17 Sennosides/Docusate Sodium [Senna 1 tab PO BID 06/11/16 04/16/17 Plus] Benzonatate [Tessalon] 200 mg PO Q8H PRN 04/16/17 04/16/17 Budesonide [Pulmicort Flexhaler 1 puff IH BID 04/16/17 04/16/17 180mcg] GuaiFENesin/Dextromethorphan 10 ml PO Q4H PRN 04/16/17 04/16/17 [Robitussin/DM] Ipratropium/Albuterol Neb [Duoneb] 3 ml IH Q6H PRN 04/16/17 04/16/17 Levothyroxine Sodium [Synthroid] 200 mcg PO QAM 04/16/17 04/16/17 Montelukast [Singulair] 10 mg PO DAILY 04/16/17 04/16/17 Morphine Sulfate [Monalisa] 1 cap PO BID 04/16/17 04/16/17 Tiotropium Br/Olodaterol HCl 2 puff IH QAM 04/16/17 04/16/17 [Stiolto Respimat Inhal [place]] Tizanidine HCl 4 mg PO DAILY PRN 04/16/17 04/16/17 Previous Rx's Medication Instructions Recorded Carbidopa/Levodopa 25/100 [Sinemet 1 each PO BID #60 tablet 06/14/16 25/100] Allergies Allergy/AdvReac Type Severity Reaction Status Date / Time No Known Allergies Allergy Verified 12/04/15 19:16 All systems ED: reviewed and negative except as stated. Constitutional: Denies: fever Cardiovascular: Reports: chest pain Respiratory: Reports: cough, dyspnea, wheezes. Denies: sputum production Gastrointestinal: Denies: abdominal pain, nausea, vomiting Past Medical History - Past Medical History Source: patient Medical history: Reports: atrial fibrillation, COPD, CVA, diabetes, hyperlipidemia, hypertension, thyroid disease, other Surgical history: Reports: herniorrhaphy, orthopedic, other, other Psychiatric history: Reports: anxiety, depression - Social History Smoking Status: Never smoker Smokeless Tobacco Status: No Alcohol use: Reports: none Drug use: Reports: none Physical Exam - General Limitations: no limitations General appearance: alert, in no apparent distress - Head Head exam: atraumatic, normocephalic, normal inspection - Eye Eye exam: Present: normal appearance, PERRL, EOMI - ENT ENT exam: normal exam, normal oropharynx, mucous membranes moist - Neck Neck exam: Present: normal inspection, trachea midline - Chest Chest inspection: Present: normal inspection, symmetric chest wall rise - Respiratory Respiratory exam: Present: accessory muscle use, prolonged expiratory phase, other (Scattered crackles with expiratory wheeze). Absent: respiratory distress - Cardiovascular Cardiovascular exam: Present: regular rate - Abdominal Exam Abdominal exam: Present: soft, Non-Tender - Extremities Exam Extremities exam: Present: normal inspection. Absent: pedal edema - Back Exam Back exam: Present: normal inspection - Neurological Exam Neurological exam: Present: alert, oriented X3 - Skin Skin exam: Present: warm, dry, intact, normal color Course Course Narrative: Patient seen and evaluated. Patient stated he is feeling totally better upon EMS arrival. Patient does have auditory adventitious lung sounds. Patient will get basic labs EKG chest x-ray and respiratory support with nebs and steroids. This desposition pending. - Reevaluation(s) Reevaluation #1: Patient seen and examined. Patient's lung exam reveals better aeration however patient still has expiratory wheezes throughout. Discussed inpatient admission for further respiratory support monitoring. Patient's chest x-ray shows pulmonary edema with right mild pleural effusion. Time: 08:19 Reevaluation #2: She is starting breathing comfortably. Time: 08:40 Vital Signs Temperature 98.6 F 04/16/17 06:59 Pulse Rate 94 04/16/17 06:59 Respiratory Rate 20 04/16/17 06:59 Blood Pressure 167/80 04/16/17 06:59 O2 Sat by Pulse Oximetry 88 04/16/17 06:59 Temperature 98.6 F 04/16/17 15:34 Pulse Rate 120 02/14/18 15:34 Respiratory Rate 18 04/16/17 15:35 Blood Pressure 115/83 04/16/17 15:34 O2 Sat by Pulse Oximetry 92 04/16/17 15:35 Oxygen Delivery Oxygen Delivery Nasal Cannula Medical Decision Making - [facility] Narrative Medical decision making narrative: Patient seen and examined. Patient does have a history of COPD. Does have history of ACS and A. fib. Patient's been having worsening dyspnea over the past week. Concerns for COPD exacerbation versus early pneumonia. Given the fact that patient does have a leukocytosis as well as cough with increasing oxygen requirement. Patient will be treated with Levaquin. Patient will be admitted to the hospital service for further evaluation respiratory support. Patient did have auditory diffuse rhonchi and wheezes on exam. Patient's symptoms most likely consistent with pneumonia versus COPD exacerbation bronchitis. Patient does not present with signs and symptoms consistent with a pulmonary embolism or ACS. Patient does meet SIRS criteria however the patient has chronic leukocytosis. Patient did not require to 30 mL/kg boluses the patient does have a normal lactate is not requiring fluids for hypotension. - Lab Data Lab results reviewed: Yes I reviewed the patient's lab results. Result diagrams: 04/16/17 07:32 04/16/17 07:32 Lab Results 04/16/17 04/16/17 04/16/17 Range/Units 07:32 07:32 07:32 WBC 16.6 H (4.3-11.1) K/mcL RBC 4.38 (3.82-4.97) M/mcL Hgb 11.7 (11.5-15.4) g/dL Hct 39.3 (35.3-44.9) % MCV 89.7 (83.0-100.0) fL MCH 26.7 L (28.0-33.3) pg MCHC 29.8 L (31.6-35.5) g/dL RDW 16.6 H (11.5-14.5) % Plt Count 402 H (140-400) K/mcL MPV 9.7 (9.4-12.4) fL Immature Gran % 0.4 (0-4) % Seg Neutrophils % 69.6 % Lymphocytes % 15.0 % Monocytes % 7.0 % Eosinophils % 7.4 % Basophils % 0.6 % Neutrophils # 11.5 H (1.6-8.9) K/mcL Lymphocytes # 2.5 (0.6-4.6) K/mcL Monocytes # 1.2 (0.0-1.3) K/mcL Eosinophils # 1.2 H (0.0-0.6) K/mcL Basophils # 0.1 (0.0-0.2) K/mcL VBG pH (7.32-7.42) pH Units VBG pCO2 (41-51) mmHg VBG pO2 (25-50) mmHg VBG HCO3 (21-27) mEq/L Sodium 136 (136-145) mEq/L Potassium 3.9 (3.5-5.1) mEq/L Chloride 101 (98-107) mEq/L Carbon Dioxide 33 H (23-29) mEq/L BUN 9 (8-23) mg/dL Creatinine 0.54 L (0.60-1.20) mg/dL Est GFR ( Amer) > 60 (> 60) Est GFR (Non-Af Amer) > 60 (> 60) BUN/Creatinine Ratio 17 (6-26) Glucose 119 H (70-105) mg/dL Calculated Osmolality 282 (280-300) Lactic Acid (0.5-2.2) mmol/L Calcium 9.8 (8.6-10.3) mg/dL Troponin I < 0.03 (< 0.04) ng/mL B-Natriuretic Peptide (Less than 100) pg/mL 04/16/17 04/16/17 04/16/17 Range/Units 07:32 07:32 07:44 WBC (4.3-11.1) K/mcL RBC (3.82-4.97) M/mcL Hgb (11.5-15.4) g/dL Hct (35.3-44.9) % MCV (83.0-100.0) fL MCH (28.0-33.3) pg MCHC (31.6-35.5) g/dL RDW (11.5-14.5) % Plt Count (140-400) K/mcL MPV (9.4-12.4) fL Immature Gran % (0-4) % Seg Neutrophils % % Lymphocytes % % Monocytes % % Eosinophils % % Basophils % % Neutrophils # (1.6-8.9) K/mcL Lymphocytes # (0.6-4.6) K/mcL Monocytes # (0.0-1.3) K/mcL Eosinophils # (0.0-0.6) K/mcL Basophils # (0.0-0.2) K/mcL VBG pH 7.44 H (7.32-7.42) pH Units VBG pCO2 51 (41-51) mmHg VBG pO2 89 H (25-50) mmHg VBG HCO3 34 H (21-27) mEq/L Sodium (136-145) mEq/L Potassium (3.5-5.1) mEq/L Chloride (98-107) mEq/L Carbon Dioxide (23-29) mEq/L BUN (8-23) mg/dL Creatinine (0.60-1.20) mg/dL Est GFR ( Amer) (> 60) Est GFR (Non-Af Amer) (> 60) BUN/Creatinine Ratio (6-26) Glucose (70-105) mg/dL Calculated Osmolality (280-300) Lactic Acid 1.0 (0.5-2.2) mmol/L Calcium (8.6-10.3) mg/dL Troponin I (< 0.04) ng/mL B-Natriuretic Peptide 36 (Less than 100) pg/mL - Radiology Data Radiology results reviewed: Yes I reviewed the patient's radiology results. Chest X-Ray 04/16/17 07:03 IMPRESSION: 1. Minimal bibasilar atelectasis. 2. Pulmonary vascular congestion and likely mild cardiomegaly. 3. Suspected trace right pleural effusion. D/ / Juan Gomez MD / Juan Gomez MD Interpreting Provider: Juan Gomez MD - EKG Data EKG #1 EKG attestation: Yes I reviewed and interpreted this EKG. Rate: normal Rhythm: A.Fib Stanton/QRS: normal Interpretation: no acute changes, nonspecific ST-T wave changes S.B.A.R. - S.B.A.R. Situation: Demographics Background: Presenting Complaint Assessment: Vital Signs, Course and respsone to treatment, Patient/Family Expectation Recommendation: Barrier(s) to disposition, Recommendation based on pending studies, treatments, or consults Christina Report Given to: Dr. Contreras Vasquez Repor Time: 08:48 Attestation Statement - Attestation Attestation: I examined this patient and my medical decision-making was reviewed with the Resident Physician. I agree with the documented findings, disposition and treatment plan as described except to the extent set forth below. Patient to ED with low pulse ox. Found without has oxygen on this morning at the [facility]. Coughing. On examination he is in no acute distress. Expiratory wheezing. Plan. Requiring increasing O2 demand. No pneumonia. No fever. Does have an elevated white count, but it is always elevated. Antibiotic, nebs steroids and admit.
[2017-04-16 07:41] LABS: Basophils # 0.1 K/mcL (0.0-0.2); Basophils % 0.6 %; Eosinophils # 1.2 K/mcL (0.0-0.6); Eosinophils % 7.4 %; Hematocrit 39.3 % (35.3-44.9); Hemoglobin 11.7 g/dL (11.5-15.4); Immature Granulocytes % 0.4 % (0-4); Lymphocytes # 2.5 K/mcL (0.6-4.6); Mean Corpuscular HGB Conc 29.8 g/dL (31.6-35.5); Mean Corpuscular Hemoglobin 26.7 pg (28.0-33.3); Mean Corpuscular Volume 89.7 fL (83.0-100.0); Mean Platelet Volume 9.7 fL (9.4-12.4); Monocytes # 1.2 K/mcL (0.0-1.3); Neutrophils # 11.5 K/mcL (1.6-8.9); Platelet Count 402 K/mcL (140-400); Red Blood Count 4.38 M/mcL (3.82-4.97); Red Cell Distribution Width 16.6 % (11.5-14.5); Segmented Neutrophils % 69.6 %
[2017-04-16 07:47] LABS: VBG HCO3 34 mEq/L (21-27); VBG PCO2 51 mmHg (41-51); VBG PH 7.44 pH Units (7.32-7.42); VBG PO2 89 mmHg (25-50)
[2017-04-16 08:12] LABS: BUN/Creatinine Ratio 17 (6-26); Blood Urea Nitrogen 9 mg/dL (8-23); Calcium 9.8 mg/dL (8.6-10.3); Carbon Dioxide 33 mEq/L (23-29); Chloride 101 mEq/L (98-107); Glucose 119 mg/dL (70-105); Osmolality,Calculated 282 (280-300); Potassium 3.9 mEq/L (3.5-5.1); Sodium 136 mEq/L (136-145); eGFR For African Americans > 60 (> 60); eGFR For Non-African Americans > 60 (> 60)
[2017-04-16] MEDS ORDERED: Levofloxacin 750 MG/150 ML 750 MG/150 ML BAG IVPB ONE (08:14)
--- NOTE | 2017-04-16 09:24 | Electrocardiograph Report ---
[facility] Test Date: 2017-04-16 Pat Name: Mine Fernandez Department: 102 Room: 3B14 Gender: F Compliance Consultant: Jean-Pierre PRETTYB: 1945 Requested By: Cm Darnell Order Number: [id number] Reading MD: Josesito Mccray MD Measurements Intervals [place] Rate: 93 P: [place]: 0 QRS: 17 QRSD: 78 T: 261 QT: 369 QTc: 420 Interpretive Statements ATRIAL FIBRILLATION NONSPECIFIC ST & T-WAVE ABNORMALITY Electronically Signed On 04-16-2017 9:22:15 EST by Josesito Mccray MD
[2017-04-16] MEDS: Ipratropium/Albuterol Neb 3 ML IH SCH ×3 (13:34→20:38)
[2017-04-16] MEDS ORDERED: Naloxone 0.4 MG/ML INJ IVP PRN (14:38)
[2017-04-16] MEDS ORDERED: *HR* HYDROcodone/Acet 5/325 mg TABLET PO PRN (14:38)
[2017-04-16] MEDS ORDERED: Acetaminophen 325 MG TABLET PO PRN (14:38)
[2017-04-16] MEDS ORDERED: Cyanocobalamin (B-12) 1,000 MCG TABLET PO SCH (14:45)
[2017-04-16] MEDS ORDERED: Benzonatate 100 MG CAPSULE PO PRN (14:45)
[2017-04-16] MEDS ORDERED: tiZANidine 4 MG TABLET PO PRN (14:45)
[2017-04-16] MEDS: methylPREDNISolone 125 MG/2 ML VIAL IVP SCH (15:27)
[2017-04-16 15:32] LABS: VBG HCO3 30 mEq/L (21-27); VBG PCO2 42 mmHg (41-51); VBG PH 7.46 pH Units (7.32-7.42); VBG PO2 83 mmHg (25-50)
--- NOTE | 2017-04-16 15:40 | Internal Med History&Physical ---
<Jer Johnson - Last Filed: 04/16/17 18:55> Date of Encounter: 04/16/17 Time of Encounter: 13:30 Assessment and Plan (1) Acute exacerbation of chronic obstructive pulmonary disease (COPD) Current visit: Yes Status: Acute Acute exacerbation of COPD. Patient reports no smoking history, but reports previous spouse smoked 3 packs per day. SOB/dyspnea for the past week with worsening symptoms. BNP 36 on admission. Patient reports home O2 at 3 L and nebulizer treatments when necessary. Supplemental O2 with titration of SPO2 monitoring. BiPAP on/off times. Repeat VBG. DuoNeb's every 4 scheduled. Continue patient's inhalers. Solu-Medrol 60 mg every 8. Levaquin administered in ED. Pts. current WBC 16.6 on admission. Pt. asymptomatic for infection and states WBC chronically elevated. Pt. lives in SNF. Respiratory infection panel ordered. Will continue Levaquin 750 mg daily IVPB for bronchitis infection coverage. We will consider abx change based on respiratory infection panel results. Falls/safety. Pt. discussed w/Dr. Chairez who is in agreement w/plan of care. Pt. is high risk for respiratory distress/failure based on current sx, hx of COPD/exacerbations w/bronchitis, current hypoxia, and risk factors. Inpatient. (2) Hypoxia Current visit: Yes Status: Acute Acute hypoxia related to current COPD exacerbation. Pt. reports home O2 @3L. Was hypoxic on admission w/SpO2 in 80's. Improved on 3L via nasal cannula. VBG pH 0.46, PO2 83, HCO3 30. BiPap on/off times ordered. Pt. denies BiPap or CPAP use. Repeat VBG ordered. Continue supplemental O2 titration and SPO2 monitoring. Cardiac telemetry. Pt. respiratory status to be monitored closely. (3) Coccyx pain Current visit: Yes Status: Acute Acute pain on coccyx. On exam, erythematous area on coccyx Stage 1 that pt. describes as painful. Wound Care consult and daily wound care ordered. Air mattress w/turns Q2. (4) Generalized weakness Current visit: Yes Status: Acute Acute generalized weakness r/t current acute exacerbation of COPD. Falls/safety precautions, up with assist, bed rest w/bathroom privileges w/assist only. PT/ OT consults to assess ambulation strength, safety, and stability. (5) HTN (hypertension) Current visit: Yes Status: Chronic Hx of chronic HTN. Monitor patient and vital signs. Continue patient's Cozaar. Qualifiers: Hypertension type: essential hypertension Qualified Code(s): I10 - Essential (primary) hypertension (6) HLD (hyperlipidemia) Current visit: Yes Status: Chronic Hx of chronic HLD. Lipid panel in a.m. labs. Continue patient's Lipitor. Qualifiers: Hyperlipidemia type: pure hypercholesterolemia Qualified Code(s): E78.00 - Pure hypercholesterolemia, unspecified; E78.0 - Pure hypercholesterolemia (7) Atrial fibrillation Current visit: Yes Status: Chronic Hx of chronic atrial fibrillation. EKG today shows atrial fibrillation with nonspecific ST and T-wave abnormality. Continue patient's Eliquis and Cardizem. Cardiac telemetry. Qualifiers: Atrial fibrillation type: chronic Qualified Code(s): I48.2 - Chronic atrial fibrillation (8) Diabetes mellitus Current visit: Yes Status: Chronic Hx of chronic diabetes controlled with oral anti-hyperglycemic medications. Will hold patient's Glucophage and administer low-dose correction insulin sliding scale with hypoglycemic protocol. BG checks before meals and at bedtime. A1c in a.m. labs. Qualifiers: Diabetes mellitus type: type 2 Diabetes mellitus complication status: with unspecified complications Diabetes mellitus senior care insulin use: without buttermaker continuous churn use Qualified Code(s): E11.8 - Type 2 diabetes mellitus with unspecified complications (9) Hypothyroidism Current visit: Yes Status: Chronic Hx of chronic hypothyroidism. TSH and free T4 ordered. Continue patient's levothyroxine. Qualifiers: Hypothyroidism type: unspecified Qualified Code(s): E03.9 - Hypothyroidism , unspecified (10) Parkinson disease Current visit: Yes Status: Chronic Hx of Parkinson's disease w/resting tremors. Continue pts. Sinemet. (11) DVT prophylaxis Current visit: Yes Status: Acute Continue pts. Eliquis for DVT prophylaxis. Monitor pt. for signs of bleeding. Internal Medicine - H&P: HPI Chief complaint: SOB/Dyspnea Admitted From: Emergency Dept Plans for Post Hospital Care: Transfer Snf Facility History of present illness: Ms. Fernandez is a 71 year old female with medical hx of chronic atrial fibrillation , COPD, CVA but patient states was a long time ago, diabetes controlled with oral antihyperglycemic medications, HLD, HTN, and thyroid disease presents from the ED with chief complaint shortness of breath and dyspnea that began approximately 1 week ago and became progressively worse. Patient states yesterday she needed nebulizer txs at her SNF. Reports O2 @ SNF @ 3L. Non- productive cough. Pt. reports weakness w/ambulation but denies recent illness, fever, chills, nausea, vomiting, headache, changes in vision, chest pain, palpitations, chest congestion, abdominal pain, diarrhea, constipation, unusual bleeding, dizziness, lightheadedness, presyncope, or syncope. Past Med Surg Social Fam HX - Past Medical History Source: patient, old records reviewed, obtained from family Medical history: atrial fibrillation, COPD, CVA (Pt. states occurred a long time ago - no residual weakness), diabetes, hyperlipidemia, hypertension, thyroid disease, other Psychiatric history: anxiety, depression - Past Surgical History Surgical History: herniorrhaphy, other - Social History Smoking Status: Never smoker Smokeless Tobacco Status: No Alcohol use: occasionally Drug use: none Current living situation: Assisted Living Activity Level: Independent ambulation, Uses cane/walker Recent Out of Country Travel Within the Last 8 Weeks: No Exposure or Possible Exposure to Illness During Travel: No - Family History Father Race: Family Member Ethnicity: Non- Living Status: Age at : 88 Cause of : [place] Hx Family Cardiac Disorders: Yes ([place]) Mother History Unknown: Yes Race: Family Member Ethnicity: Non- Living Status: Sister Race: Family Member Ethnicity: Non- Living Status: Still Living Hx Family Cancer: Yes (Colon) Internal Medicine - H&P: Meds Apixaban [Eliquis] 5 mg PO BID 04/15/16 [History] Aspirin [Lo-Dose Aspirin EC] 162 mg PO DAILY 04/15/16 [History] Atorvastatin Calcium [Lipitor] 20 mg PO DAILY 04/15/16 [History] Cyanocobalamin (B-12) [Vitamin B12] 1,000 cap PO QWEEK 04/15/16 [History] Diltiazem HCl [Diltiazem 24Hr ER] 300 mg PO DAILY 04/15/16 [History] Losartan [Cozaar] 50 mg PO DAILY 04/15/16 [History] Paroxetine HCl [Paroxetine] 40 mg PO QAM 04/15/16 [History] Perphenazine 8 mg PO DAILY 04/15/16 [History] Tiotropium [Spiriva] 1 cap PO DAILY 04/15/16 [History] Trazodone HCl 200 mg PO HS 04/15/16 [History] metFORMIN [Glucophage] 500 mg PO BIDWM 04/15/16 [History] Acetaminophen [Tylenol] 650 mg PO TID PRN 06/11/16 [History] BuPROPion SR (12 HR) [Wellbutrin SR] 150 mg PO QAM 06/11/16 [History] Multivitamin [One Daily Essential] 1 tab PO DAILY 06/11/16 [History] Omeprazole [PriLOSEC] 40 mg PO DAILY 06/11/16 [History] Oxybutynin Chloride [Ditropan Xl] 5 mg PO DAILY 06/11/16 [History] Sennosides/Docusate Sodium [Senna Plus] 1 tab PO BID 06/11/16 [History] Carbidopa/Levodopa 25/100 [Sinemet 25/100] 1 each PO BID #60 tablet 06/14/16 [Rx ] Benzonatate [Tessalon] 200 mg PO Q8H PRN 04/16/17 [History] Budesonide [Pulmicort Flexhaler 180mcg] 1 puff IH BID 04/16/17 [History] GuaiFENesin/Dextromethorphan [Robitussin/DM] 10 ml PO Q4H PRN 04/16/17 [History] Ipratropium/Albuterol Neb [Duoneb] 3 ml IH Q6H PRN 04/16/17 [History] Levothyroxine Sodium [Synthroid] 200 mcg PO QAM 04/16/17 [History] Montelukast [Singulair] 10 mg PO DAILY 04/16/17 [History] Morphine Sulfate [Monalisa] 1 cap PO BID 04/16/17 [History] Tiotropium Br/Olodaterol HCl [Stiolto Respimat Inhal [place]] 2 puff IH QAM [History] Tizanidine HCl 4 mg PO DAILY PRN 04/16/17 [History] 3 Allergy/AdvReac Type Severity Reaction Status Date / Time No Known Allergies Allergy Verified 12/04/15 19:16 All Systems PM: A 10-system review of systems was performed and is negative for pertinent findings except as documented above in the HPI. - Constitutional Constitutional: as per HPI, weakness, no chills, no fever(s), no night sweats - EENT Eyes: no change in vision, no discharge, no pain, no photophobia Ears: no ear discharge, no ear pain, no tinnitus Nose, mouth and throat: no dysphagia, no nasal discharge, no neck pain, no sore throat - Breasts Breasts: as per HPI - Cardiovascular Cardiovascular ROS IM: as per HPI, dyspnea, dyspnea on exertion, irregular heart rhythm (D/t chronic atrial fibrillation), no chest pain, no diaphoresis, no lightheadedness, no palpitations, no syncope - Respiratory Respiratory: as per HPI, cough, dyspnea, dyspnea on exertion, wheezing, no excessive phlegm production - Gastrointestinal Gastrointestinal: no abdominal pain, no diarrhea, no hematemesis, no hematochezia, no melena, no nausea, no vomiting - Genitourinary Genitourinary: no change in urinary stream, no dysuria, no flank pain, no hematuria Menstruation: as per HPI - Musculoskeletal Musculoskeletal ROS IM: no numbness, no tingling - Integumentary Integumentary IM: as per HPI, sores (Sore on coccyx area), no rash, no unusual bruising - Neurological Neurological ROS: disequilibrium, weakness, no confusion, no convulsions, no focal weakness, no numbness, no tingling, no tremor(s) - Psychiatric Psychiatric: as per HPI, anxiety, depression - Endocrine Endocrine IM: as per HPI - Hematologic/Lymphatic Hematologic/Lymphatic: no easy bruising - Allergic/Immunologic Allergic/Immunologic: as per HPI - Constitutional Vitals: Temp Pulse Resp BP Pulse Ox 97.6 F 115 17 180/90 93 04/16/17 10:34 04/16/17 10:34 04/16/17 13:45 04/16/17 10:34 04/16/17 13:45 General appearance: Present: cooperative, mild distress (Respiratory), A&O X 3, morbidly obese, pleasant, answers questions appropriately - Head Head exam: Present: atraumatic, normocephalic - Eye Eye exam: Present: PERRL, conjuntiva pink, sclera anicteric Pupils: Present: PERRL - ENT ENT exam: Present: normal exam - Neck Neck exam general surgery: Present: normal inspection, supple, trachea midline. Absent: lymphadenopathy - Respiratory Respiratory exam: Present: accessory muscle use, wheezes (All lobes bilaterally) - Cardiovascular Cardiovascular exam: Present: irregular rhythm (Atrial fibrillation). Absent: diastolic murmur, gallop, rubs, systolic murmur - GI/Abdominal GI/Abdominal exam: Present: normal bowel sounds, soft, no peritoneal signs. Absent: distended, tenderness - Rectal Rectal exam: Present: deferred, tenderness (Area on coccyx w/decubitus ulcer - Stage 1) - Additional comments: exam deferred. - Extremities Exam Extremities exam: Present: warm, radial pulses palpable and symmetrical. Absent : calf tenderness, cyanotic, pedal edema - Back Exam Back exam: Present: normal inspection - Neurological Exam Neurological exam: Present: CN II-XII intact, oriented X3, no focal deficits. Absent: pronater drift, facial droop, speech deficit - Psychiatric Psychiatric exam: Present: flat affect - Skin Skin exam: Present: dry, intact Internal Med - H&P Results - Labs CBC & Chem 7: 04/16/17 07:32 04/16/17 07:32 - ABG Interpretation ABG results: 04/16/17 15:29 VBG pH 7.46 H VBG pCO2 42 VBG pO2 83 H VBG HCO3 30 H - EKG Data Prior EKG available for review: yes EKG comments: 04/16/17 15:52 EKG dated 06/11/16 shows sinus rhythm with first-degree AV block. EKG dated 04/16/17 shows atrial fibrillation with nonspecific ST and T-wave abnormality. - Diagnostic Studies Chest x-ray Additional comments: Impressions Chest X-Ray 04/16/17 07:03 IMPRESSION: 1. Minimal bibasilar atelectasis. 2. Pulmonary vascular congestion and likely mild cardiomegaly. 3. Suspected trace right pleural effusion. D/ / Juan Gomez MD / Juan Gomez MD Interpreting Provider: Juan Gomez MD <J Luis Chairez - Last Filed: 04/17/17 07:49> Date of Encounter: 04/16/17 Internal Medicine - H&P: HPI History of present illness: Ms. Fernandez is a 71 year old female All Systems PM: A 10-system review of systems was performed and is negative for pertinent findings except as documented above in the HPI. - Constitutional Vitals: Temp Pulse Resp BP Pulse Ox 99.0 F 119 17 100/63 93 04/17/17 07:37 04/17/17 07:37 04/17/17 07:37 04/17/17 07:37 04/17/17 07:37 Internal Med - H&P Results - Labs CBC & Chem 7: 04/17/17 04:39 04/17/17 04:39 Labs: Short CBC 04/17/17 Range/Units 04:39 WBC 16.3 H (4.3-11.1) K/mcL Hgb 11.9 (11.5-15.4) g/dL Hct 38.7 (35.3-44.9) % Plt Count 446 H (140-400) K/mcL Neutrophils # 14.6 H (1.6-8.9) K/mcL BMP 04/17/17 04:39 Sodium 139 Potassium 4.1 Chloride 100 Carbon Dioxide 31 H BUN 14 Creatinine 0.58 L Glucose 160 H Calcium 9.9 Liver Function 04/17/17 Range/Units 04:39 Total Bilirubin 0.3 (0.3-1.0) mg/dL AST 14 (13-39) Units/L ALT < 3 L (7-52) Units/L Alkaline Phosphatase 64 (34-104) Units/L Albumin 3.6 (3.5-5.7) g/dL - Attending Attestation Date of service for this encounter was 04/16/2017 I have personally performed a face to face evaluation on this patient. I have reviewed and agree with the care plan. History and Exam by me shows: Patient presented to the hospital for evaluation of shortness of breath. Currently he is in no acute distress, lungs are clear, heart is regular. Abdomen is obese, soft and nontender. Assessment: COPD exacerbation Plan: Inhaled bronchodilators. IV steroids. IV antibiotics. PT OT and social work evaluation.
[2017-04-16] MEDS ORDERED: Dextrose Gel 15 GM/37.5 ML TUBE PO PRN ×2 (16:01)
[2017-04-16] MEDS ORDERED: D5% in Water 1,000 ML IVC PRN (16:01)
[2017-04-16] MEDS ORDERED: *HR* Dextrose 50 % in Water (Syg) 50 ML SYRINGE IVP PRN (16:01)
[2017-04-16 16:59] LABS: Adenovirus Not Detected (Not Detect); Bordetella Pertussis Not Detected (Not Detect); Chlamydophila pneumoniae Not Detected (Not Detect); Coronavirus 229E Not Detected (Not Detect); Coronavirus HKU1 Not Detected (Not Detect); Coronavirus NL63 Not Detected (Not Detect); Coronavirus OC43 Not Detected (Not Detect); Human Metapneumovirus Not Detected (Not Detect); Human Rhinovirus/Enterovirus Not Detected (Not Detect); Influenza A Subtype 2009 H1 Not Detected (Not Detect); Influenza A Untypeable Not Detected (Not Detect); Influenza B Not Detected (Not Detect); Mycoplasma pneumoniae Not Detected (Not Detect); Parainfluenza Virus 1 Not Detected (Not Detect); Parainfluenza Virus 2 Not Detected (Not Detect); Parainfluenza Virus 3 Not Detected (Not Detect); Parainfluenza Virus 4 Not Detected (Not Detect); Respiratory Syncytial Virus Not Detected (Not Detect)
[2017-04-16] MEDS: Insulin LISPRO 300 UNITS/3 ML VIAL SQ SCH ×2 (17:24→21:15)
[2017-04-16] MEDS: Beclomethasone 80mcg MDI IH SCH ×2 (20:39→20:43)
[2017-04-16] MEDS: *HR* Morphine Sulfate SR (12 HR) 30 MG TABLET.ER PO SCH (21:12)
[2017-04-16] MEDS: Carbidopa/Levodopa 25/100 TABLET PO SCH (21:12)
[2017-04-16] MEDS: Apixaban 5 MG TABLET PO SCH (21:12)
[2017-04-16] MEDS: traZODone 50 MG TABLET PO SCH (21:12)
[2017-04-16] MEDS: Sennosides/Docusate Sodium TABLET PO SCH (21:13)
[2017-04-17] MEDS: methylPREDNISolone 125 MG/2 ML VIAL IVP SCH ×4 (00:49→23:29)
[2017-04-17] MEDS: Levalbuterol Neb 0.63 MG/3 ML IH SCH ×4 (04:10→22:35)
[2017-04-17 05:16] LABS: Basophils % 0.1 %; Hematocrit 38.7 % (35.3-44.9); Hemoglobin 11.9 g/dL (11.5-15.4); Immature Granulocytes % 0.6 % (0-4); Lymphocytes # 1.2 K/mcL (0.6-4.6); Lymphocytes % 7.3 %; Mean Corpuscular HGB Conc 30.7 g/dL (31.6-35.5); Mean Corpuscular Hemoglobin 26.9 pg (28.0-33.3); Mean Corpuscular Volume 87.4 fL (83.0-100.0); Mean Platelet Volume 10.5 fL (9.4-12.4); Monocytes # 0.4 K/mcL (0.0-1.3); Monocytes % 2.1 %; Neutrophils # 14.6 K/mcL (1.6-8.9); Platelet Count 446 K/mcL (140-400); Red Blood Count 4.43 M/mcL (3.82-4.97); Red Cell Distribution Width 16.7 % (11.5-14.5); Segmented Neutrophils % 89.9 %
[2017-04-17 05:34] LABS: Hemoglobin A1C 5.7 %
[2017-04-17 05:46] LABS: Thyroid Stimulating Hormone 0.808 mcIU/mL (0.340-5.600)
[2017-04-17 05:48] LABS: Alanine Aminotransferase < 3 Units/L (7-52); Albumin 3.6 g/dL (3.5-5.7); Albumin/Globulin Ratio 1.1 (1.1-2.2); Alkaline Phosphatase 64 Units/L (34-104); Aspartate Amino Transferase 14 Units/L (13-39); BUN/Creatinine Ratio 24 (6-26); Bilirubin,Total 0.3 mg/dL (0.3-1.0); Blood Urea Nitrogen 14 mg/dL (8-23); Calcium 9.9 mg/dL (8.6-10.3); Carbon Dioxide 31 mEq/L (23-29); Chloride 100 mEq/L (98-107); Chol/HDL Ratio 2.7 (0-4.9); Cholesterol 155 mg/dL (< 200); Globulin 3.4 g/dL (2.4-3.5); Glucose 160 mg/dL (70-105); HDL Cholesterol 57 mg/dL (40-59); LDL Cholesterol,Calculated 87 mg/dL (0-99); Magnesium 1.7 mg/dL (1.6-2.6); Osmolality,Calculated 292 (280-300); Potassium 4.1 mEq/L (3.5-5.1); Sodium 139 mEq/L (136-145); Triglycerides 54 mg/dL (< 150); eGFR For African Americans > 60 (> 60); eGFR For Non-African Americans > 60 (> 60)
[2017-04-17] MEDS: Apixaban 5 MG TABLET PO SCH ×2 (08:30→19:27)
[2017-04-17] MEDS: Sennosides/Docusate Sodium TABLET PO SCH ×2 (08:31→19:27)
[2017-04-17] MEDS: Carbidopa/Levodopa 25/100 TABLET PO SCH ×2 (08:31→19:27)
[2017-04-17] MEDS: *HR* Morphine Sulfate SR (12 HR) 30 MG TABLET.ER PO SCH ×2 (08:31→19:27)
[2017-04-17] MEDS: Aspirin Enteric Coated 81 MG Tablet PO SCH (08:31)
[2017-04-17] MEDS: BuPROPion SR (12 HR) 150 MG TABLET PO SCH (08:31)
[2017-04-17] MEDS: Perphenazine 8 MG TABLET PO SCH (08:32)
[2017-04-17] MEDS: Multivit/Ca/Min/Fe/FA 1 TAB TABLET PO SCH (08:32)
[2017-04-17] MEDS: Diltiazem CD (24hr) 300 MG CAPSULE PO SCH (08:34)
[2017-04-17] MEDS: Insulin LISPRO 300 UNITS/3 ML VIAL SQ SCH ×4 (08:35→20:48)
[2017-04-17] MEDS: (Tiotropium Br/Olodaterol Hcl [Stiolto Respimat Inhal IH SCH (08:36)
[2017-04-17] MEDS ORDERED: Tiotropium 18 MCG inhalation IH SCH (09:00)
[2017-04-17] MEDS: Levofloxacin 750 MG/150 ML 750 MG/150 ML BAG IVPB SCH (09:59)
[2017-04-17] MEDS: Beclomethasone 80mcg MDI IH SCH ×2 (11:54→22:35)
--- NOTE | 2017-04-17 13:06 | Internal Med Progress Note ---
Date of Encounter: 04/17/17 Time of Encounter: 08:30 - Assessment and plan (1) Acute exacerbation of chronic obstructive pulmonary disease (COPD) Current Visit: Yes Status: Acute Assessment and plan: Chief exacerbation. Patient reports 1 week history of shortness of breath and increased dry, hacking cough. Patient is at baseline and to use 3 L. Continue supplemental oxygen and titrate as needed maintain sats greater than 92%. Patient is being treated with IV Levaquin. She has mild leukocytosis we will continue to monitor. Vision denies subjective fever or chills, no records. Patient has been afebrile here. Patient reports chronic leukocytosis. She resides at a fci. Respiratory infection panel is negative. Continue IV Levaquin Continue duo nebs Continue Solu-Medrol IV (2) Coccyx pain Current Visit: Yes Status: Chronic Assessment and plan: Patient reports acute pain due to conflicts. There is a stage I pressure ulcer noted by admitting provider, patient describes this is painful. Wound care consult has been ordered. This wound was present prior to admission. Wound care following Continue to monitor daily. Turn every 2 hours. (3) Generalized weakness Current Visit: Yes Status: Acute Assessment and plan: Patient with acute generalized weakness, most likely due to current acute exacerbation of COPD. Monitor for fall precautions and safety. Up to chair twice a day with assist Physical therapy and occupational therapy consultations (4) Hypoxia Current Visit: Yes Status: Acute Assessment and plan: Related to COPD exacerbation. Patient is a current baseline O2 use. Patient was hypoxic on admission with sats in the 80s. Continue BiPAP, times are ordered. Continue telemetry SPO2 monitoring Plan as above. (5) Atrial fibrillation Current Visit: Yes Status: Chronic Assessment and plan: Patient denies chest pain. Patient is anticoagulated with Eliquis. Continue home dose of Cardizem Continue telemetry Qualifiers: Atrial fibrillation type: chronic Qualified Code(s): I48.2 - Chronic atrial fibrillation (6) Diabetes mellitus Current Visit: Yes Status: Chronic Assessment and plan: A1c is 5.7%. Continue sliding scale insulin, Accu-Cheks before meals and at bedtime, diabetic/cardiac diet. Qualifiers: Diabetes mellitus type: type 2 Diabetes mellitus complication status: with unspecified complications Diabetes mellitus long-term insulin use: without long-term use Qualified Code(s): E11.8 - Type 2 diabetes mellitus with unspecified complications (7) HLD (hyperlipidemia) Current Visit: Yes Status: Chronic Assessment and plan: Chronic. Continue home medications. Qualifiers: Hyperlipidemia type: pure hypercholesterolemia Qualified Code(s): E78.00 - Pure hypercholesterolemia, unspecified; E78.0 - Pure hypercholesterolemia (8) HTN (hypertension) Current Visit: Yes Status: Chronic Assessment and plan: Well-controlled. Continue home medications. Qualifiers: Hypertension type: essential hypertension Qualified Code(s): I10 - Essential (primary) hypertension (9) Hypothyroidism Current Visit: Yes Status: Chronic Assessment and plan: TSH is within normal limits. Continue normal dose of home medication. Qualifiers: Hypothyroidism type: unspecified Qualified Code(s): E03.9 - Hypothyroidism , unspecified (10) Parkinson disease Current Visit: Yes Status: Chronic Assessment and plan: Chronic. Continue carbidopa levodopa. Monitor for safety. - Time Spent With Patient less than 15 minutes - Subjective Interval history: Pt was seen and assessed at 0830 this a.m. Pt is alert and awake, answers questions appropriately. She reports 1 week history of increased SOB and cough, denies fever, chills, or rigors. She denies chest pain, abd pain, headache, n/v/ d, dizziness. Denies peripheral edema beyond normal. Pt states that she feels better,but is not back to baseline. - Constitutional Vitals: Temp Pulse Resp BP Pulse Ox 98.0 F 96 16 133/63 90 04/17/17 11:32 04/17/17 11:32 04/17/17 11:54 04/17/17 11:32 04/17/17 11:54 General appearance: Present: cooperative, mild distress (Respiratory), A&O X 3, morbidly obese, pleasant, no acute distress, answers questions appropriately - Head Head exam: Present: atraumatic, normal inspection, normocephalic - Eye Eye exam: Present: normal appearance, conjuntiva pink, sclera anicteric - Neck Neck exam general surgery: Present: normal inspection, supple, trachea midline. Absent: lymphadenopathy, tenderness - Respiratory Respiratory exam: Present: decreased breath sounds, CTAB, wheezes. Absent: accessory muscle use, rales, respiratory distress, rhonchi - Cardiovascular Cardiovascular exam: Present: RRR, +S1, +S2. Absent: diastolic murmur, gallop, rubs, systolic murmur - GI/Abdominal GI/Abdominal exam: Present: distended, normal bowel sounds, soft. Absent: hepatomegaly, tenderness - Extremities Exam Extremities exam: Present: normal capillary refill, normal inspection, pedal edema, warm, radial pulses palpable and symmetrical. Absent: calf tenderness, cyanotic Additional comments: +1-2 non-pitting edema noted bilaterally. - Neurological Exam Neurological exam: Present: alert, oriented X3, no focal deficits. Absent: facial droop, speech deficit - Skin Skin exam: Present: dry, intact, normal color, warm. Absent: rash Internal Medicine: Result - Labs CBC & Chem 7: 04/17/17 04:39 04/17/17 04:39 Labs: Short CBC 04/17/17 Range/Units 04:39 WBC 16.3 H (4.3-11.1) K/mcL Hgb 11.9 (11.5-15.4) g/dL Hct 38.7 (35.3-44.9) % Plt Count 446 H (140-400) K/mcL Neutrophils # 14.6 H (1.6-8.9) K/mcL BMP 04/17/17 04:39 Sodium 139 Potassium 4.1 Chloride 100 Carbon Dioxide 31 H BUN 14 Creatinine 0.58 L Glucose 160 H Calcium 9.9 Liver Function 04/17/17 Range/Units 04:39 Total Bilirubin 0.3 (0.3-1.0) mg/dL AST 14 (13-39) Units/L ALT < 3 L (7-52) Units/L Alkaline Phosphatase 64 (34-104) Units/L Albumin 3.6 (3.5-5.7) g/dL Consult Discharge Plan - Plan [facility]errals: [facility] [Non-Partnered Physician] -
[2017-04-17] MEDS: traZODone 50 MG TABLET PO SCH (19:26)
[2017-04-18] MEDS: Levalbuterol Neb 0.63 MG/3 ML IH SCH ×3 (03:40→15:30)
[2017-04-18 06:49] LABS: Basophils % 0.1 %; Hematocrit 38.4 % (35.3-44.9); Hemoglobin 11.8 g/dL (11.5-15.4); Lymphocytes # 1.1 K/mcL (0.6-4.6); Lymphocytes % 5.1 %; Mean Corpuscular HGB Conc 30.7 g/dL (31.6-35.5); Mean Corpuscular Hemoglobin 27.1 pg (28.0-33.3); Mean Corpuscular Volume 88.3 fL (83.0-100.0); Monocytes # 0.8 K/mcL (0.0-1.3); Monocytes % 3.5 %; Platelet Count 411 K/mcL (140-400); Red Blood Count 4.35 M/mcL (3.82-4.97); Red Cell Distribution Width 17.2 % (11.5-14.5); Segmented Neutrophils % 90.3 %
[2017-04-18 07:06] LABS: Alanine Aminotransferase 4 Units/L (7-52); Albumin 3.5 g/dL (3.5-5.7); Albumin/Globulin Ratio 1.1 (1.1-2.2); Alkaline Phosphatase 61 Units/L (34-104); Aspartate Amino Transferase 15 Units/L (13-39); BUN/Creatinine Ratio 41 (6-26); Bilirubin,Total 0.3 mg/dL (0.3-1.0); Blood Urea Nitrogen 28 mg/dL (8-23); Calcium 9.8 mg/dL (8.6-10.3); Carbon Dioxide 30 mEq/L (23-29); Chloride 100 mEq/L (98-107); Globulin 3.2 g/dL (2.4-3.5); Glucose 152 mg/dL (70-105); Osmolality,Calculated 292 (280-300); Potassium 4.3 mEq/L (3.5-5.1); Sodium 137 mEq/L (136-145); Total Protein 6.7 g/dL (6.4-8.9); eGFR For African Americans > 60 (> 60); eGFR For Non-African Americans > 60 (> 60)
[2017-04-18] MEDS: Insulin LISPRO 300 UNITS/3 ML VIAL SQ SCH ×2 (07:34→11:36)
[2017-04-18] MEDS: Levofloxacin 750 MG/150 ML 750 MG/150 ML BAG IVPB SCH (08:54)
[2017-04-18] MEDS: Carbidopa/Levodopa 25/100 TABLET PO SCH (08:55)
[2017-04-18] MEDS: BuPROPion SR (12 HR) 150 MG TABLET PO SCH (08:55)
[2017-04-18] MEDS: Aspirin Enteric Coated 81 MG Tablet PO SCH (08:55)
[2017-04-18] MEDS: Multivit/Ca/Min/Fe/FA 1 TAB TABLET PO SCH (08:55)
[2017-04-18] MEDS: Perphenazine 8 MG TABLET PO SCH (08:56)
[2017-04-18] MEDS: Sennosides/Docusate Sodium TABLET PO SCH (08:56)
[2017-04-18] MEDS: *HR* Morphine Sulfate SR (12 HR) 30 MG TABLET.ER PO SCH (08:57)
[2017-04-18] MEDS: Apixaban 5 MG TABLET PO SCH (08:57)
[2017-04-18] MEDS: Diltiazem CD (24hr) 300 MG CAPSULE PO SCH (08:58)
[2017-04-18] MEDS: (Tiotropium Br/Olodaterol Hcl [Stiolto Respimat Inhal IH SCH (08:58)
[2017-04-18] MEDS: Beclomethasone 80mcg MDI IH SCH (10:50)
[2017-04-18] MEDS ORDERED: 0.9 % Sodium Chloride 500 ML IVC ONE (11:29)
--- NOTE | 2017-04-18 11:48 | Discharge Summary ---
Date of Encounter: 04/18/17 Time of Encounter: 10:00 - Discharge Diagnosis (1) Acute exacerbation of chronic obstructive pulmonary disease (COPD) Priority: Primary Status: Acute Comments: Acute exacerbation of COPD. Patient reports no smoking history, but reports previous spouse smoked 3 packs per day. Pt reports SOB/dyspnea for 7 days prior to arrival. Patient reports home O2 at 3 L and nebulizer treatments when necessary, continued here. Levaquin administered in ED. Pt has leukocytosis on arrival, has increased, most likely due to steroid use. Review of trend of labs reveals chronic leukocytosis since April/2016. Respiratory infection panel is negative. Levaquin 750 mg daily IVPB for bronchitis infection coverage, will change to po. DuoNeb's every 4 scheduled. Continue patient's inhalers. Solu-Medrol 60 mg q8h to 40mg IV BID. Pt states that she is feeling better and is ready to go back to [facility]. Pt will be closely monitored at [facility]. (2) Coccyx pain Priority: Secondary Status: Chronic Comments: Patient reports acute pain due to conflicts. There is a stage I pressure ulcer noted by admitting provider, patient describes this is painful. Wound care consult has been ordered. This wound was present prior to admission. Continue treatment at [facility], turn q2h, up to chair at least TID. (3) Generalized weakness Priority: Secondary Status: Acute Comments: Patient with acute generalized weakness, most likely due to current acute exacerbation of COPD and overall deconditioning. Monitor for fall precautions and safety. Up to chair 3 times daily with assist Physical therapy and occupational therapy recommend to continue PT/OT at SNF (4) Hypoxia Priority: Secondary Status: Acute Comments: Related to COPD exacerbation. Patient is a current baseline O2 use. Patient was hypoxic on admission with sats in the 80s. Continue BiPAP, on/off times are ordered. (5) Atrial fibrillation Priority: Secondary Status: Chronic Comments: No chest pain. Patient is anticoagulated and on Eliquis. Continue home dose of Cardizem. Qualifiers: Atrial fibrillation type: chronic Qualified Code(s): I48.2 - Chronic atrial fibrillation (6) Diabetes mellitus Priority: Secondary Status: Chronic Comments: Well controlled. A1c is 5.7%. Continue home medications and Accu-Chek regimen after discharge. Qualifiers: Diabetes mellitus type: type 2 Diabetes mellitus complication status: with unspecified complications Diabetes mellitus halfway insulin use: without termite control representative use Qualified Code(s): E11.8 - Type 2 diabetes mellitus with unspecified complications (7) HLD (hyperlipidemia) Priority: Secondary Status: Chronic Comments: Chronic. Continue medications. Qualifiers: Hyperlipidemia type: pure hypercholesterolemia Qualified Code(s): E78.00 - Pure hypercholesterolemia, unspecified; E78.0 - Pure hypercholesterolemia (8) HTN (hypertension) Priority: Secondary Status: Chronic Comments: Chronic. Continue home medications. Qualifiers: Hypertension type: essential hypertension Qualified Code(s): I10 - Essential (primary) hypertension (9) Hypothyroidism Priority: Secondary Status: Chronic Comments: TSH SNL, continue normal dose of home medication. Qualifiers: Hypothyroidism type: unspecified Qualified Code(s): E03.9 - Hypothyroidism , unspecified (10) Parkinson disease Priority: Secondary Status: Chronic Comments: Chronic. Continue home medications. Monitor for falls and for safety. (11) Morbid obesity Priority: Secondary Status: Chronic Comments: Chronic. Continue to encourage lifestyle modifications and reduced calorie diet. (12) DVT prophylaxis Priority: Secondary Status: Acute Comments: Pt is anticoagulated on Eliquis. - Discharge Medications Prescriptions: Levofloxacin [Levaquin] 750 mg PO DAILY #6 tablet Morphine Sulfate [Monalisa] 1 cap PO BID 1 Days #2 cap.er.pel predniSONE [PredniSONE] 10 mg PO DAILY #31 tablet Home Medications: Apixaban [Eliquis] 5 mg PO BID 04/15/16 [History] Aspirin [Lo-Dose Aspirin EC] 162 mg PO DAILY 04/15/16 [History] Atorvastatin Calcium [Lipitor] 20 mg PO DAILY 04/15/16 [History] Cyanocobalamin (B-12) [Vitamin B12] 1,000 cap PO QWEEK 04/15/16 [History] Diltiazem HCl [Diltiazem 24Hr ER] 300 mg PO DAILY 04/15/16 [History] Losartan [Cozaar] 50 mg PO DAILY 04/15/16 [History] Paroxetine HCl [Paroxetine] 40 mg PO QAM 04/15/16 [History] Perphenazine 8 mg PO DAILY 04/15/16 [History] Tiotropium [Spiriva] 1 cap PO DAILY 04/15/16 [History] Trazodone HCl 200 mg PO HS 04/15/16 [History] metFORMIN [Glucophage] 500 mg PO BIDWM 04/15/16 [History] Acetaminophen [Tylenol] 650 mg PO TID PRN 06/11/16 [History] BuPROPion SR (12 HR) [Wellbutrin SR] 150 mg PO QAM 06/11/16 [History] Multivitamin [One Daily Essential] 1 tab PO DAILY 06/11/16 [History] Omeprazole [PriLOSEC] 40 mg PO DAILY 06/11/16 [History] Oxybutynin Chloride [Ditropan Xl] 5 mg PO DAILY 06/11/16 [History] Sennosides/Docusate Sodium [Senna Plus] 1 tab PO BID 06/11/16 [History] Carbidopa/Levodopa 25/100 [Sinemet 25/100] 1 each PO BID #60 tablet 06/14/16 [Rx ] Benzonatate [Tessalon] 200 mg PO Q8H PRN 04/16/17 [History] Budesonide [Pulmicort Flexhaler 180mcg] 1 puff IH BID 04/16/17 [History] GuaiFENesin/Dextromethorphan [Robitussin/Dm] 10 ml PO Q4H PRN 04/16/17 [History] Ipratropium/Albuterol Neb [Duoneb] 3 ml IH Q6H PRN 04/16/17 [History] Levothyroxine Sodium [Synthroid] 200 mcg PO QAM 04/16/17 [History] Montelukast [Singulair] 10 mg PO DAILY 04/16/17 [History] Tiotropium Br/Olodaterol HCl [Stiolto Respimat Inhal [place]] 2 puff IH QAM [History] Tizanidine HCl 4 mg PO DAILY PRN 04/16/17 [History] Levofloxacin [Levaquin] 750 mg PO DAILY #6 tablet 04/18/17 [Rx] Morphine Sulfate [Monalisa] 1 cap PO BID 1 Days #2 cap.er.pel 04/18/17 [Rx] predniSONE [PredniSONE] 10 mg PO DAILY #31 tablet 04/18/17 [Rx] Allergies/Adverse Reactions: 3 Allergy/AdvReac Type Severity Reaction Status Date / Time No Known Allergies Allergy Verified 12/04/15 19:16 Procedures/tests Complete & Pending: Procedures Performed prior 72 hours Category Date Time Status EKG [ECG 12 lead ECG] [ECG] Stat Y 04/16/17 23:18 Completed Date of admission: 04/16/17 19:56 Primary care physician: Luigi Stanley MD Discharging clinician: Manjula Davidson Anticipated date of discharge: 04/18/17 - Patient Status Disposition: Transfer SNF Condition: Fair Functional capacity at discharge: wheelchair bound Overall status at discharge: patient is progressing back to baseline - Discharge Instructions Follow Up With: [facility] [Non-Partnered Physician] - Additional Instructions: Closely monitor blood glucose after discharge, pt is on steroids for the next 2 weeks. Turn pt q2h and ensure that she is getting up out of bed at least 3 times daily and continue to closely monitor coccyx pain and beginning of skin breakdown. - Diet and Activity Activity: as per physical therapy, increase activity as tolerated Diet: diabetic diet, low fat, low cholesterol Hospital course: Ms. Fernandez is a 71 year old female with PMH of Parkinsons, A-fib, hypothyroidism , COPD, DM, and morbid obesity. Pt sent to the ED from SNF with 1 week history of SOB and dyspnea. Pt has been treated for AECOPD with levaquin and IV Solumedrol, nebulizers. Pt is at baseline 02 use and will be sent home with po steroid taper and po Levaquin to finish the course. Leukocytosis is chronic. She is afebrile and has some mild tachycardia that resolved with a 500ml fluid bolus. Pt has some redness and pain to coccyx, beginning of skin breakdown from pressure. Pt presented to ER with that condition. Pt will need to be monitored closely and turned q2h while in bed and recommend that pt get up to chair at least three times daily. Labs and vitals are stable and WNL. Pt will be discharged in stable condition. - Time Spent with Patient Total time spent providing and/or coordinating discharge services: Less than 30 minutes - Constitutional Vitals: Temp Pulse Resp BP Pulse Ox 98.2 F 98 16 164/82 93 04/18/17 07:01 04/18/17 07:01 04/18/17 10:54 04/18/17 07:01 04/18/17 10:54 General appearance: Present: cooperative, mild distress (Respiratory), A&O X 3, morbidly obese, pleasant, no acute distress, answers questions appropriately - Head Head exam: Present: atraumatic, normal inspection, normocephalic - Eye Eye exam: Present: normal appearance, conjuntiva pink, sclera anicteric - Neck Neck exam general surgery: Present: supple, trachea midline. Absent: lymphadenopathy, tenderness - Respiratory Respiratory exam: Present: decreased breath sounds, CTAB. Absent: accessory muscle use, chest wall tenderness, rales, respiratory distress, rhonchi, wheezes - Cardiovascular Cardiovascular exam: Present: RRR, +S1, +S2. Absent: bradycardia, diastolic murmur, gallop, rubs, systolic murmur - GI/Abdominal GI/Abdominal exam: Present: normal bowel sounds, soft, no peritoneal signs. Absent: distended, hepatomegaly, tenderness - Extremities Exam Extremities exam: Present: normal capillary refill, normal inspection, warm, radial pulses palpable and symmetrical. Absent: calf tenderness, cyanotic, pedal edema, tenderness - Neurological Exam Neurological exam: Present: alert, oriented X3, no focal deficits. Absent: facial droop, speech deficit - Skin Skin exam: Present: dry, intact, normal color, warm. Absent: rash
--- NOTE | 2017-04-18 15:24 | Physician Discharge Referral ---
ExtendedCare Referral Info Transfer To: [facility] Provider in Charge after Transfer: PCP Institutional Level of Care: Intermediate - Diagnosis (1) Acute exacerbation of chronic obstructive pulmonary disease (COPD) Priority: Primary Status: Acute (2) Coccyx pain Priority: Secondary Status: Chronic (3) Generalized weakness Priority: Secondary Status: Acute (4) Hypoxia Priority: Secondary Status: Acute (5) Atrial fibrillation Priority: Secondary Status: Chronic (6) Diabetes mellitus Priority: Secondary Status: Chronic (7) HLD (hyperlipidemia) Priority: Secondary Status: Chronic (8) HTN (hypertension) Priority: Secondary Status: Chronic (9) Hypothyroidism Priority: Secondary Status: Chronic (10) Parkinson disease Priority: Secondary Status: Chronic (11) Morbid obesity Priority: Secondary Status: Chronic (12) DVT prophylaxis Priority: Secondary Status: Acute Prognosis: Fair - Transfer Medications Prescriptions: Levofloxacin [Levaquin] 750 mg PO DAILY #6 tablet Morphine Sulfate [Monalisa] 1 cap PO BID 1 Days #2 cap.er.pel predniSONE [PredniSONE] 10 mg PO DAILY #31 tablet Home Medications: Apixaban [Eliquis] 5 mg PO BID 04/15/16 [History] Aspirin [Lo-Dose Aspirin EC] 162 mg PO DAILY 04/15/16 [History] Atorvastatin Calcium [Lipitor] 20 mg PO DAILY 04/15/16 [History] Cyanocobalamin (B-12) [Vitamin B12] 1,000 cap PO QWEEK 04/15/16 [History] Diltiazem HCl [Diltiazem 24Hr ER] 300 mg PO DAILY 04/15/16 [History] Losartan [Cozaar] 50 mg PO DAILY 04/15/16 [History] Paroxetine HCl [Paroxetine] 40 mg PO QAM 04/15/16 [History] Perphenazine 8 mg PO DAILY 04/15/16 [History] Tiotropium [Spiriva] 1 cap PO DAILY 04/15/16 [History] Trazodone HCl 200 mg PO HS 04/15/16 [History] metFORMIN [Glucophage] 500 mg PO BIDWM 04/15/16 [History] Acetaminophen [Tylenol] 650 mg PO TID PRN 06/11/16 [History] BuPROPion SR (12 HR) [Wellbutrin SR] 150 mg PO QAM 06/11/16 [History] Multivitamin [One Daily Essential] 1 tab PO DAILY 06/11/16 [History] Omeprazole [PriLOSEC] 40 mg PO DAILY 06/11/16 [History] Oxybutynin Chloride [Ditropan Xl] 5 mg PO DAILY 06/11/16 [History] Sennosides/Docusate Sodium [Senna Plus] 1 tab PO BID 06/11/16 [History] Carbidopa/Levodopa 25/100 [Sinemet 25/100] 1 each PO BID #60 tablet 06/14/16 [Rx ] Benzonatate [Tessalon] 200 mg PO Q8H PRN 04/16/17 [History] Budesonide [Pulmicort Flexhaler 180mcg] 1 puff IH BID 04/16/17 [History] GuaiFENesin/Dextromethorphan [Robitussin/Dm] 10 ml PO Q4H PRN 04/16/17 [History] Ipratropium/Albuterol Neb [Duoneb] 3 ml IH Q6H PRN 04/16/17 [History] Levothyroxine Sodium [Synthroid] 200 mcg PO QAM 04/16/17 [History] Montelukast [Singulair] 10 mg PO DAILY 04/16/17 [History] Tiotropium Br/Olodaterol HCl [Stiolto Respimat Inhal [place]] 2 puff IH QAM [History] Tizanidine HCl 4 mg PO DAILY PRN 04/16/17 [History] Levofloxacin [Levaquin] 750 mg PO DAILY #6 tablet 04/18/17 [Rx] Morphine Sulfate [Monalisa] 1 cap PO BID 1 Days #2 cap.er.pel 04/18/17 [Rx] predniSONE [PredniSONE] 10 mg PO DAILY #31 tablet 04/18/17 [Rx] Allergies/Adverse Reactions: 3 Allergy/AdvReac Type Severity Reaction Status Date / Time No Known Allergies Allergy Verified 12/04/15 19:16 - Respiratory Orders Oxygen / L per min (3L 02 N/C) Smoking Cessation: Smoking cessation has been advised. For more information, call the [employer] Quit Line at 3-840-HENQ-NOW. - Lab Orders Lab Orders: CBC, U/A, Christ[place] 17, CXR yearly - Ancillary Orders May use pressure relief devices daily prn, May consult with Dentist, Cash Accountant, Environmental Engineering Manager PRN - Advance Directives Code Status: Full Code CERTIFICATION: I certify that the transfer of the above named patient to an Extended Care Facility is necessary for the continuing treatment of the diagnosis listed. The above information is true and accurate reflection of patient's current condition. Confidential - Redisclosure prohibited without a patient's written consent.
[2017-04-18 15:30] VITALS: BP 94/60
[2017-04-18] MEDS ORDERED: MethylPREDNISolone 40 MG/ML VIAL IVP SCH (18:00)
--- NOTE | 2017-04-20 17:47 | Electrocardiograph Report ---
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
== END 2017-04-18 16:15 | DRG 191 ==
LOC: EDSEX → 3BNU 06:55 → EMEROO 06:55 → 3BNU 09:57
PROVIDERS: ADMIT Internal Medicine; ATTEND Registered Nurse

== ENCOUNTER 2017-07-20 12:44 | Observation (INO) ==
[2017-07-20] MEDS ORDERED: methylPREDNISolone 125 MG/2 ML VIAL IVP ONE (13:10)
[2017-07-20] MEDS ORDERED: Ipratropium/Albuterol Neb 3 ML IH ONE (13:10)
--- NOTE | 2017-07-20 13:13 | Emergency Department Note ---
Disposition Clinical Impression: COPD exacerbation, Hypoxia Disposition: Admitted As Inpatient Condition: Good Time of Disposition: 16:12 SOB HPI - General Chief Complaint: ED Shortness of Breath/Dyspnea Stated Complaint: Shortness of breath Time Seen by Provider: 07/20/17 12:54 Source: patient, EMS Mode of arrival: EMS Limitations: no limitations Nursing Notes Reviewed: Yes Vital Signs Reviewed: Yes - History of Present Illness 72-year-old self identified female with history of COPD on 3 L home oxygen supplementation presents an emergency department via EMS from [facility] for shortness of breath. She was recently seen and evaluated for COPD and was told that it was severe. Patient complains of 3 days of cold to breathing. Unable to catch her breath. Reports cough with changes sputum. Has been using her breathing treatments more frequently up to 7 times last night with mild improvement. Reports chest pain that occurred yesterday but immediately resolved. Worse with exertion but can happen at rest. Denies history of congestive heart failure. Denies any fevers. Reports recently diagnosed and admitted for pneumonia. History of atrial fibrillation with Eliquis. Denies any leg swelling. Denies any recent antibiotic or steroid use. Reports recently being admitted for pneumonia several months ago. Pt Subjective Complaint: shortness of breath, cough - Related Data Home Medications Medication Instructions Recorded Confirmed Apixaban [Eliquis] 5 mg PO BID 04/15/16 07/20/17 Aspirin [Lo-Dose Aspirin EC] 162 mg PO DAILY 04/15/16 07/20/17 Atorvastatin Calcium [Lipitor] 20 mg PO DAILY 04/15/16 07/20/17 Cyanocobalamin (B-12) [Vitamin B12] 1,000 cap PO QWEEK 04/15/16 07/20/17 Diltiazem HCl [Diltiazem 24Hr ER] 300 mg PO DAILY 04/15/16 07/20/17 Losartan [Cozaar] 50 mg PO DAILY 04/15/16 07/20/17 Tiotropium [Spiriva] 1 cap PO DAILY 04/15/16 07/20/17 Trazodone HCl 200 mg PO HS 04/15/16 07/20/17 metFORMIN [Glucophage] 500 mg PO BIDWM 04/15/16 07/20/17 Acetaminophen [Tylenol] 650 mg PO TID PRN 06/11/16 07/20/17 Multivitamin [One Daily Essential] 1 tab PO DAILY 06/11/16 07/20/17 Omeprazole [PriLOSEC] 40 mg PO DAILY 06/11/16 07/20/17 Oxybutynin Chloride [Ditropan Xl] 5 mg PO DAILY 06/11/16 07/20/17 Sennosides/Docusate Sodium [Senna 1 tab PO BID 06/11/16 07/20/17 Plus] Benzonatate [Tessalon] 200 mg PO Q8H PRN 04/16/17 07/20/17 Budesonide [Pulmicort Flexhaler 1 puff IH BID 04/16/17 07/20/17 180mcg] GuaiFENesin/Dextromethorphan 10 ml PO Q4H PRN 04/16/17 07/20/17 [Robitussin/Dm] Ipratropium/Albuterol Neb [Duoneb] 3 ml IH Q6H PRN 04/16/17 07/20/17 Levothyroxine Sodium [Synthroid] 200 mcg PO QAM 04/16/17 07/20/17 Montelukast [Singulair] 10 mg PO DAILY 04/16/17 07/20/17 Tiotropium Br/Olodaterol HCl 2 puff IH QAM 04/16/17 07/20/17 [Stiolto Respimat Inhal [place]] Tizanidine HCl 4 mg PO DAILY PRN 04/16/17 07/20/17 Morphine Sulfate SR (12 HR) [MS 1 tab PO Q12HR 07/20/17 07/20/17 Contin] Oxycodone HCl [Oxaydo] 5 mg PO Q4H PRN 07/20/17 07/20/17 Paroxetine [Paxil] 60 mg PO DAILY 07/20/17 07/20/17 Perphenazine [Trilafon] 10 mg PO HS 07/20/17 07/20/17 predniSONE [PredniSONE] 5 mg PO DAILY 07/20/17 07/20/17 Previous Rx's Medication Instructions Recorded Carbidopa/Levodopa 25/100 [Sinemet 1 each PO BID #60 tablet 06/14/16 25/100] Allergies Allergy/AdvReac Type Severity Reaction Status Date / Time No Known Allergies Allergy Verified 12/04/15 19:16 All systems ED: reviewed and negative except as stated. Constitutional: Denies: fever, chills ENT ED: Reports: congestion Cardiovascular: Reports: chest pain Respiratory: Reports: cough, dyspnea Gastrointestinal: Denies: abdominal pain, nausea, vomiting, diarrhea Musculoskeletal: Denies: back pain Integumentary: Denies: rash, abrasion Neurological: Denies: headache, weakness, numbness Past Medical History - Past Medical History Attestation: Yes The following information was validated with the patient. Source: patient Medical history: Reports: atrial fibrillation, COPD, CVA, diabetes, hyperlipidemia, hypertension, thyroid disease, other Psychiatric history: Reports: anxiety, depression - Social History Smoking Status: Never smoker Smokeless Tobacco Status: No Alcohol use: Reports: none Drug use: Reports: none Physical Exam - General Limitations: no limitations General appearance: alert, in distress (mild respiratory), obese - Head Head exam: atraumatic, normocephalic, normal inspection - Eye Eye exam: Present: normal appearance, PERRL, EOMI - ENT ENT exam: normal exam, normal oropharynx, mucous membranes moist - Neck Neck exam: Present: normal inspection, full ROM, trachea midline - Chest Chest inspection: Present: normal inspection, symmetric chest wall rise - Respiratory Respiratory exam: Present: respiratory distress, wheezes (bilateral), other ( tight aeration) - Cardiovascular Cardiovascular exam: Present: normal rhythm, irregular rhythm, normal heart sounds. Absent: systolic murmur, diastolic murmur - Abdominal Exam Abdominal exam: Present: soft, Non-Tender, hernia (umbilical, reducible). Absent: tenderness, distention, guarding, rebound, rigidity - Extremities Exam Extremities exam: Present: normal inspection, full ROM, normal capillary refill. Absent: tenderness, pedal edema - Neurological Exam Neurological exam: Present: alert, oriented X3 - Skin Skin exam: Present: warm, dry, intact, normal color. Absent: rash, cyanosis, diaphoresis Course Course Narrative: Patients in mild respiratory distress with good oxygen saturation. Bilateral wheezing on lung auscultation. Tight aeration. Suspect likely COPD exacerbation. Breathing treatments chest x-ray EKG and basic labs. No peripheral edema. - Reevaluation(s) Reevaluation #1: Patient does not report significant improvement with breathing treatment. Solu- Medrol was given. Chest x-ray showed some scarring but no focal pneumonia. Some baseline anemia. Patient denies any abdominal pain or G.I. bleed symptoms such as bloody stool, black tarry stool, hemoptysis or hematemesis. Mild leukocytosis. Suspect likely COPD exacerbation will continue with continuous albuterol treatment. Initially patient was hesitant for BiPAP to help with breathing but is not agreeable to try. Family member in the room states that she was recently diagnosed with severe COPD on Friday. She is also wear BiPAP at nursing facility but noncompliant. She is oxygenating and ventilating well with 100% oxygen saturation plays now agreeable to BiPAP. EKG shows chronic atrial fibrillation. Troponin <0.03. Will obtain a CT of the chest to evaluate for pneumonia or pulmonary embolism. Patient will require admission for further management treatment. She is in agreement with this plan. Impression is respiratory distress, shortness of breath, COPD exacerbation. Patient's been started on ceftriaxone and azithromycin. Time: 14:43 Reevaluation #2: Improvement of breathing after placed on BiPAP. CT of the chest not reveal any pulmonary embolism or focal pneumonia. Suspect this is all likely COPD exacerbation. Patient will continue with current management and be admitted for further evaluation. - Consultations Consultation #1: Spoke with on-call hospitalist erica Bautista to admit for COPD exacerbation and respiratory distress. No further orders at this time Time: 15:38 Vital Signs Temperature 98.2 F 07/20/17 12:45 Pulse Rate 91 07/20/17 12:45 Respiratory Rate 22 07/20/17 12:45 Blood Pressure 154/99 07/20/17 12:45 O2 Sat by Pulse Oximetry 94 07/20/17 12:45 Temperature 98 F 07/20/17 18:04 Pulse Rate 79 07/20/17 18:04 Respiratory Rate 18 07/20/17 18:04 Blood Pressure 142/63 07/20/17 18:04 O2 Sat by Pulse Oximetry 94 07/20/17 18:38 Oxygen Delivery Oxygen Delivery Bipap Shortness of Breath/Dyspnea - MDM Narrative Medical decision making narrative: Patient was discussed with my attending physician who agrees with ED management and final disposition. They independently evaluated the patient. Please refer to their attestation to this encounter for additional information. This note was generated by [employer] voice recognition software and as a result grammatical or spelling errors may occur using this program. - Medical Records Medical records reviewed: Yes I reviewed the patient's medical records. - Lab Data Lab results reviewed: Yes I reviewed the patient's lab results. Result diagrams: 07/20/17 13:20 07/20/17 13:20 Lab Results 07/20/17 07/20/17 07/20/17 Range/Units 13:20 13:20 13:20 WBC 14.3 H (4.3-11.1) K/mcL RBC 3.81 L (4.19-5.50) M/mcL Hgb 10.7 L (12.9-16.9) g/dL Hct 34.2 L (37.5-50.1) % MCV 89.8 (83.0-100.0) fL MCH 28.1 (28.0-33.3) pg MCHC 31.3 L (31.6-35.5) g/dL RDW 17.6 H (11.5-14.5) % Plt Count 306 (140-400) K/mcL MPV 10.0 (9.4-12.4) fL Immature Gran % 0.6 (0-4) % Seg Neutrophils % 74.4 % Lymphocytes % 9.1 % Monocytes % 8.8 % Eosinophils % 6.4 % Basophils % 0.7 % Neutrophils # 10.6 H (1.6-8.9) K/mcL Lymphocytes # 1.3 (0.6-4.6) K/mcL Monocytes # 1.3 (0.0-1.3) K/mcL Eosinophils # 0.9 H (0.0-0.6) K/mcL Basophils # 0.1 (0.0-0.2) K/mcL Sodium 139 (136-145) mEq/L Potassium 4.2 (3.5-5.1) mEq/L Chloride 99 (98-107) mEq/L Carbon Dioxide 34 H (23-29) mEq/L BUN 9 (8-23) mg/dL Creatinine 0.51 L (0.70-1.30) mg/dL Est GFR ( Amer) > 60 (> 60) Est GFR (Non-Af Amer) > 60 (> 60) BUN/Creatinine Ratio 18 (6-26) Glucose 136 H (70-105) mg/dL Calculated Osmolality 289 (280-300) Calcium 9.3 (8.6-10.3) mg/dL Troponin I < 0.03 (< 0.04) ng/mL - Radiology Data Radiology results reviewed: Yes I reviewed the patient's radiology results. Chest X-Ray 07/20/17 13:05 IMPRESSION: Streaky opacity at the left lung base, likely subsegmental atelectasis or scar. Exam is limited by patient rotation D/ / Mahamed Lawton MD / Mahamed Lawton MD Interpreting Provider: Mahamed Lawton MD Chest CTA 07/20/17 14:41 IMPRESSION: No evidence of pulmonary embolism or acute pulmonary abnormality. D/ / Fabby Vargas Cha, MD / Fabby Vargas Cha, MD Interpreting Provider: Fabby Vargas Cha, MD - EKG Data EKG attestation: Yes I reviewed and interpreted this EKG. EKG results narrative: EKG performed 1245 atrial fibrillation 91 beats per minute, QRS 89, normal axis , good R wave progression, no ST elevation or depression, intervals within normal limits.. To prior EKG performed 04/16/2017 shows similar consistent findings of atrial fibrillation at that time rate 118. No acute ischemic changes. Attestation Statement - Attestation Attestation: I, Jorge L Condon DO, examined this patient [id number] and my medical decision-making was reviewed with Jamal Kennedy DO , Resident Physician. I agree with the documented findings, disposition and treatment plan as described except to the extent set forth below. Please see my progress notes for details.
[2017-07-20 13:47] LABS: Basophils # 0.1 K/mcL (0.0-0.2); Basophils % 0.7 %; Eosinophils # 0.9 K/mcL (0.0-0.6); Eosinophils % 6.4 %; Immature Granulocytes % 0.6 % (0-4); Lymphocytes # 1.3 K/mcL (0.6-4.6); Lymphocytes % 9.1 %; Mean Corpuscular HGB Conc 31.3 g/dL (31.6-35.5); Mean Corpuscular Hemoglobin 28.1 pg (28.0-33.3); Mean Corpuscular Volume 89.8 fL (83.0-100.0); Monocytes # 1.3 K/mcL (0.0-1.3); Monocytes % 8.8 %; Neutrophils # 10.6 K/mcL (1.6-8.9); Platelet Count 306 K/mcL (140-400); Red Cell Distribution Width 17.6 % (11.5-14.5); Segmented Neutrophils % 74.4 %
[2017-07-20 14:06] LABS: BUN/Creatinine Ratio 18 (6-26); Blood Urea Nitrogen 9 mg/dL (8-23); Calcium 9.3 mg/dL (8.6-10.3); Carbon Dioxide 34 mEq/L (23-29); Chloride 99 mEq/L (98-107); Glucose 136 mg/dL (70-105); Osmolality,Calculated 289 (280-300); Potassium 4.2 mEq/L (3.5-5.1); Sodium 139 mEq/L (136-145); eGFR For African Americans > 60 (> 60); eGFR For Non-African Americans > 60 (> 60)
[2017-07-20] MEDS ORDERED: Isovue-370 500 ML INFUS..BTL IV ONE (14:41)
[2017-07-20] MEDS ORDERED: Albuterol Neb 7.5 MG, Sodium Chloride for inhalation 12 ML IH ONE (14:41)
[2017-07-20] MEDS ORDERED: 0.9 % Sodium Chloride 500 ML IVC ONE (14:42)
[2017-07-20] MEDS ORDERED: Azithromycin 500 MG in D5% in Water 250 ML IVPB ONE (14:51)
[2017-07-20] MEDS ORDERED: cefTRIAXone 2,000 MG in Water for inj. (sterile) 20 ML 20 ML IVP ONE (14:51)
--- NOTE | 2017-07-20 15:40 | Emergency Department Note ---
Disposition Clinical Impression: COPD exacerbation, Hypoxia Disposition: Admitted As Inpatient Condition: Good Time of Disposition: 16:46 General Adult HPI - General Chief complaint: ED Shortness of Breath/Dyspnea Stated complaint: Shortness of breath Time Seen by Provider: 07/20/17 12:54 Source: patient, EMS Mode of arrival: EMS Limitations: no limitations - History of Present Illness Pain Scale: 0 - Related Data Home Medications Medication Instructions Recorded Confirmed Apixaban [Eliquis] 5 mg PO BID 04/15/16 07/20/17 Aspirin [Lo-Dose Aspirin EC] 162 mg PO DAILY 04/15/16 07/20/17 Atorvastatin Calcium [Lipitor] 20 mg PO DAILY 04/15/16 07/20/17 Cyanocobalamin (B-12) [Vitamin B12] 1,000 cap PO QWEEK 04/15/16 07/20/17 Diltiazem HCl [Diltiazem 24Hr ER] 300 mg PO DAILY 04/15/16 07/20/17 Losartan [Cozaar] 50 mg PO DAILY 04/15/16 07/20/17 Tiotropium [Spiriva] 1 cap PO DAILY 04/15/16 07/20/17 Trazodone HCl 200 mg PO HS 04/15/16 07/20/17 metFORMIN [Glucophage] 500 mg PO BIDWM 04/15/16 07/20/17 Acetaminophen [Tylenol] 650 mg PO TID PRN 06/11/16 07/20/17 Multivitamin [One Daily Essential] 1 tab PO DAILY 06/11/16 07/20/17 Omeprazole [PriLOSEC] 40 mg PO DAILY 06/11/16 07/20/17 Oxybutynin Chloride [Ditropan Xl] 5 mg PO DAILY 06/11/16 07/20/17 Sennosides/Docusate Sodium [Senna 1 tab PO BID 06/11/16 07/20/17 Plus] Benzonatate [Tessalon] 200 mg PO Q8H PRN 04/16/17 07/20/17 Budesonide [Pulmicort Flexhaler 1 puff IH BID 04/16/17 07/20/17 180mcg] GuaiFENesin/Dextromethorphan 10 ml PO Q4H PRN 04/16/17 07/20/17 [Robitussin/Dm] Ipratropium/Albuterol Neb [Duoneb] 3 ml IH Q6H PRN 04/16/17 07/20/17 Levothyroxine Sodium [Synthroid] 200 mcg PO QAM 04/16/17 07/20/17 Montelukast [Singulair] 10 mg PO DAILY 04/16/17 07/20/17 Tiotropium Br/Olodaterol HCl 2 puff IH QAM 04/16/17 07/20/17 [Stiolto Respimat Inhal [place]] Tizanidine HCl 4 mg PO DAILY PRN 04/16/17 07/20/17 Morphine Sulfate SR (12 HR) [MS 1 tab PO Q12HR 07/20/17 07/20/17 Contin] Oxycodone HCl [Oxaydo] 5 mg PO Q4H PRN 07/20/17 07/20/17 Paroxetine [Paxil] 60 mg PO DAILY 07/20/17 07/20/17 Perphenazine [Trilafon] 10 mg PO HS 07/20/17 07/20/17 predniSONE [PredniSONE] 5 mg PO DAILY 07/20/17 07/20/17 Previous Rx's Medication Instructions Recorded Carbidopa/Levodopa 25/100 [Sinemet 1 each PO BID #60 tablet 06/14/16 25/100] Allergies Allergy/AdvReac Type Severity Reaction Status Date / Time No Known Allergies Allergy Verified 12/04/15 19:16 Constitutional: Denies: fever, chills ENT ED: Reports: congestion Cardiovascular: Reports: chest pain Respiratory: Reports: cough, dyspnea Gastrointestinal: Denies: abdominal pain, nausea, vomiting, diarrhea Musculoskeletal: Denies: back pain Integumentary: Denies: rash, abrasion Neurological: Denies: headache, weakness, numbness Past Medical History - Past Medical History Medical history: Reports: atrial fibrillation, COPD, CVA, diabetes, hyperlipidemia, hypertension, thyroid disease, other Psychiatric history: Reports: anxiety, depression - Social History Smoking Status: Never smoker Smokeless Tobacco Status: No Alcohol use: Reports: none Drug use: Reports: none Physical Exam - General Limitations: no limitations General appearance: alert, in distress (mild respiratory), obese Course Vital Signs Temperature 98.2 F 07/20/17 12:45 Pulse Rate 91 07/20/17 12:45 Respiratory Rate 22 07/20/17 12:45 Blood Pressure 154/99 07/20/17 12:45 O2 Sat by Pulse Oximetry 94 07/20/17 12:45 Temperature 98.2 F 07/20/17 12:45 Pulse Rate 83 07/20/17 15:57 Respiratory Rate 18 07/20/17 15:57 Blood Pressure 134/79 07/20/17 15:57 O2 Sat by Pulse Oximetry 97 07/20/17 15:57 Oxygen Delivery Oxygen Delivery Bipap Medical Decision Making - Lab Data Result diagrams: 07/20/17 13:20 07/20/17 13:20 Lab Results 07/20/17 07/20/17 07/20/17 Range/Units 13:20 13:20 13:20 WBC 14.3 H (4.3-11.1) K/mcL RBC 3.81 L (4.19-5.50) M/mcL Hgb 10.7 L (12.9-16.9) g/dL Hct 34.2 L (37.5-50.1) % MCV 89.8 (83.0-100.0) fL MCH 28.1 (28.0-33.3) pg MCHC 31.3 L (31.6-35.5) g/dL RDW 17.6 H (11.5-14.5) % Plt Count 306 (140-400) K/mcL MPV 10.0 (9.4-12.4) fL Immature Gran % 0.6 (0-4) % Seg Neutrophils % 74.4 % Lymphocytes % 9.1 % Monocytes % 8.8 % Eosinophils % 6.4 % Basophils % 0.7 % Neutrophils # 10.6 H (1.6-8.9) K/mcL Lymphocytes # 1.3 (0.6-4.6) K/mcL Monocytes # 1.3 (0.0-1.3) K/mcL Eosinophils # 0.9 H (0.0-0.6) K/mcL Basophils # 0.1 (0.0-0.2) K/mcL Sodium 139 (136-145) mEq/L Potassium 4.2 (3.5-5.1) mEq/L Chloride 99 (98-107) mEq/L Carbon Dioxide 34 H (23-29) mEq/L BUN 9 (8-23) mg/dL Creatinine 0.51 L (0.70-1.30) mg/dL Est GFR ( Amer) > 60 (> 60) Est GFR (Non-Af Amer) > 60 (> 60) BUN/Creatinine Ratio 18 (6-26) Glucose 136 H (70-105) mg/dL Calculated Osmolality 289 (280-300) Calcium 9.3 (8.6-10.3) mg/dL Troponin I < 0.03 (< 0.04) ng/mL Critical Care Time Critical Care Time: Yes Total Critical Care Time: 35 Attestation: Critical care performed: Time is exclusive of separately billable procedures. Time includes: direct patient care, patient reassessment, coordination of patient care, interpretation of data (laboratory data, radiology data, and respiratory data), review of patient's medical records, medical consultation and documentation of patient care. Procedures included in critical care time: Procedures excluded from critical care time: Attestation Statement - Attestation Attestation: I, Jorge L Condon DO, examined this patient [id number] and my medical decision-making was reviewed with Jamal Kennedy DO , Resident Physician. I agree with the documented findings, disposition and treatment plan as described except to the extent set forth below. Please see my progress notes for details. 72-year-old male presents emergency room with complaint of shortness of breath. Known COPD. Patient identifies is a female. Patient does not have any other complaints except shortness of breath. She is morbidly obese. Patient did have pulmonary function testing completed within the last week that showed severe disease. Currently denying chest pain fevers chills nausea vomiting or diarrhea. Denies any headache or vision change. Patient typically is on 2 L of oxygen at home. Initial physical exam shows a morbidly obese male sitting in the bed. Head is atraumatic mucous membranes are moist oropharynx is patent trachea is midline no stridor no trismus. Diminished breath sounds are noted significantly on the left side with intermittent expiratory wheezing on the right side. Patient is to With accessory muscle use on examination. Abdomen is enlarged but no point tenderness guarding or rigidity or peritoneal symptoms are noted on exam. Lower extremities appear to be symmetrical. There is pitting edema noted but no sniffing signs of cellulitis redness warmth or pain. Patient was symptomatically treatment started with steroids breathing treatments. BiPAP was offered but the patient is deferring at this time. He has never required intubation or intervention onset antibiotics and steroids for previous COPD exacerbations. Patient's clinical symptoms are concerning for the presentation being acute exacerbation of COPD refractory to outpatient management. See detailed documentation of the physical exam, medical intervention, medical decision-making and disposition in the resident physician' s note. Patient will most likely require antibiotics, full workup including chest x-ray EKG CBC chemistry troponin and BNP and blood cultures. Disposition will most of the determined once full treatment course is established and completed. 1430 The patient responded to breathing treatments and now has more diffuse wheezing. Patient is still thick. There is concern for clotting related issue at this time. CT angiography the chest will be ordered. Patient will be placed on BiPAP after lengthy discussion was had a repeat dose of albuterol be given. Pulse ox is remain stable on the normal oxygenation but the patient is having increased work of breathing. Repeat evaluation be completed once the BiPAP has been applied. No critical care provider patient's treatment course. 1600 CT angiography is pending. BiPAP is been placement patient is feeling much better this time. Admission process to be completed once the workup is established. CT angiography is negative for pulmonary emboli. Antibiotics have been given. Patient will be admitted for what appears to be an elevated white blood cell count with neutrophilia of unknown etiology to COPD exacerbation. Patient's hemoglobin is 10.7 approximately point a lower than normal but denies any bleeding at this time. Admission process will be completed.
[2017-07-20] MEDS ORDERED: Naloxone 0.4 MG/ML INJ IVP PRN (17:12)
[2017-07-20] MEDS ORDERED: Acetaminophen 325 MG TABLET PO PRN (17:13)
[2017-07-20] MEDS ORDERED: *HR* OxyCODONE Immed Rel 5 MG TABLET PO PRN (17:13)
[2017-07-20] MEDS ORDERED: Dextrose Gel 15 GM/37.5 ML TUBE PO PRN ×2 (17:13)
[2017-07-20] MEDS ORDERED: D5% in Water 1,000 ML IVC PRN (17:13)
[2017-07-20] MEDS ORDERED: *HR* Dextrose 50 % in Water (Syg) 50 ML SYRINGE IVP PRN (17:13)
[2017-07-20] MEDS ORDERED: Benzonatate 100 MG CAPSULE PO PRN (17:13)
[2017-07-20] MEDS ORDERED: Cyanocobalamin (B-12) 1,000 MCG TABLET PO SCH (17:15)
[2017-07-20] MEDS ORDERED: Ipratropium/Albuterol Neb 3 ML IH PRN (17:16)
--- NOTE | 2017-07-20 17:26 | Internal Med History&Physical ---
Date of Encounter: 07/20/17 Time of Encounter: 04:20 Internal Medicine - H&P: HPI Chief complaint: shortness of breath Admitted From: Long-term Nursing Facility Plans for Post Hospital Care: Transfer [facility] History of present illness: Ms. Fernandez is a 72 year old (male who identifies herself as a female) with PMH Of AFib, Parkinsons disease, COPD on LTOT, DM, HTN, hypothyroidism, morbid obesity, HLD who presents to the ER for worsening shortness of breath x two days. Pt states her symptoms persisted despite her taking nebulizer treatments at the [place]. She is on chronic steroid therapy. Pt received IV steroids, IV abx, and bronchodilator support, and bipap to which she responded appropriately. She reports of a cough but denies any fever or chills. Denies any chest pain, abd pain, nausea, vomiting at this time. She is saturating appropriately on bipap, able to communicate without any distress. Past Med Surg Social Fam HX - Past Medical History Medical history: atrial fibrillation, COPD, CVA, diabetes, hyperlipidemia, hypertension, thyroid disease, other Psychiatric history: anxiety, depression - Past Surgical History Surgical History: herniorrhaphy, other - Social History Smoking Status: Never smoker Smokeless Tobacco Status: No Alcohol use: none Drug use: none - Family History Father Family Member Ethnicity: Non- Living Status: Hx Family Cardiac Disorders: Yes (SD) Mother Family Member Ethnicity: Non- Living Status: Sister Family Member Ethnicity: Non- Living Status: Still Living Hx Family Cancer: Yes (Colon) Internal Medicine - H&P: Meds Apixaban [Eliquis] 5 mg PO BID 04/15/16 [History] Aspirin [Lo-Dose Aspirin EC] 162 mg PO DAILY 04/15/16 [History] Atorvastatin Calcium [Lipitor] 20 mg PO DAILY 04/15/16 [History] Cyanocobalamin (B-12) [Vitamin B12] 1,000 cap PO QWEEK 04/15/16 [History] Diltiazem HCl [Diltiazem 24Hr ER] 300 mg PO DAILY 04/15/16 [History] Losartan [Cozaar] 50 mg PO DAILY 04/15/16 [History] Tiotropium [Spiriva] 1 cap PO DAILY 04/15/16 [History] Trazodone HCl 200 mg PO HS 02/13/17 [History] metFORMIN [Glucophage] 500 mg PO BIDWM 04/15/16 [History] Acetaminophen [Tylenol] 650 mg PO TID PRN 06/11/16 [History] Multivitamin [One Daily Essential] 1 tab PO DAILY 06/11/16 [History] Omeprazole [PriLOSEC] 40 mg PO DAILY 06/11/16 [History] Oxybutynin Chloride [Ditropan Xl] 5 mg PO DAILY 06/11/16 [History] Sennosides/Docusate Sodium [Senna Plus] 1 tab PO BID 06/11/16 [History] Carbidopa/Levodopa 25/100 [Sinemet 25/100] 1 each PO BID #60 tablet 06/14/16 [Rx ] Benzonatate [Tessalon] 200 mg PO Q8H PRN 04/16/17 [History] Budesonide [Pulmicort Flexhaler 180mcg] 1 puff IH BID 04/16/17 [History] GuaiFENesin/Dextromethorphan [Robitussin/Dm] 10 ml PO Q4H PRN 04/16/17 [History] Ipratropium/Albuterol Neb [Duoneb] 3 ml IH Q6H PRN 04/16/17 [History] Levothyroxine Sodium [Synthroid] 200 mcg PO QAM 04/16/17 [History] Montelukast [Singulair] 10 mg PO DAILY 04/16/17 [History] Tiotropium Br/Olodaterol HCl [Stiolto Respimat Inhal [place]] 2 puff IH QAM [History] Tizanidine HCl 4 mg PO DAILY PRN 04/16/17 [History] Morphine Sulfate SR (12 HR) [MS Contin] 1 tab PO Q12HR 07/20/17 [History] Oxycodone HCl [Oxaydo] 5 mg PO Q4H PRN 07/20/17 [History] Paroxetine [Paxil] 60 mg PO DAILY 07/20/17 [History] Perphenazine [Trilafon] 10 mg PO HS 07/20/17 [History] predniSONE [PredniSONE] 5 mg PO DAILY 07/20/17 [History] 3 Allergy/AdvReac Type Severity Reaction Status Date / Time No Known Allergies Allergy Verified 12/04/15 19:16 All Systems PM: A 10-system review of systems was performed and is negative for pertinent findings except as documented above in the HPI. - Constitutional Constitutional: as per HPI - Constitutional Vitals: Temp Pulse Resp BP Pulse Ox 98.2 F 83 18 134/79 97 07/20/17 12:45 07/20/17 15:57 07/20/17 15:57 07/20/17 15:57 07/20/17 15:57 General appearance: Present: A&O X 3, morbidly obese, no acute distress, answers questions appropriately - Head Head exam: Present: atraumatic, normocephalic - Respiratory Respiratory exam: Absent: respiratory distress, wheezes (decreased breath sounds , decreased air entry bilaterally ) - Cardiovascular Cardiovascular exam: Present: RRR, +S1, +S2. Absent: diastolic murmur, gallop, rubs, systolic murmur - GI/Abdominal GI/Abdominal exam: Present: normal bowel sounds, soft, no peritoneal signs. Absent: distended, tenderness - Extremities Exam Extremities exam: Present: warm, radial pulses palpable and symmetrical. Absent : calf tenderness, pedal edema - Neurological Exam Neurological exam: Present: oriented X3 Internal Med - H&P Results - Labs CBC & Chem 7: 07/20/17 13:20 07/20/17 13:20 - Assessment and plan (1) Acute exacerbation of chronic obstructive pulmonary disease (COPD) Current Visit: Yes Status: Acute Assessment and plan: CT chest negative for any infectious etiology contributing to the acute exacerbation will obtain respiratory infection panel continue systemic steroids, bronchodilator support Bipap support O2 supplementation monitor O2 sat, goal O2 sat: 88-92% abx closely monitor respiratory status (2) Atrial fibrillation Current Visit: No Status: Chronic Assessment and plan: rate controlled with cardizem and anticoagulated with eliquis, will continue Qualifiers: Atrial fibrillation type: chronic Qualified Code(s): I48.2 - Chronic atrial fibrillation (3) Diabetes mellitus Current Visit: No Status: Chronic Assessment and plan: hold oral hyperglycemic agents sliding scale insulin algorithm monitor FS and BG ADA diet Qualifiers: Diabetes mellitus type: type 2 Diabetes mellitus intermediate project manager insulin use: without halfway use Diabetes mellitus complication status: with unspecified complications Qualified Code(s): E11.8 - Type 2 diabetes mellitus with unspecified complications (4) HTN (hypertension) Current Visit: No Status: Chronic Assessment and plan: BP within acceptable range continue home meds Qualifiers: Hypertension type: essential hypertension Qualified Code(s): I10 - Essential (primary) hypertension (5) Hypothyroidism Current Visit: No Status: Chronic Assessment and plan: continue home dose of levothyroxine Qualifiers: Hypothyroidism type: unspecified Qualified Code(s): E03.9 - Hypothyroidism , unspecified (6) Parkinson disease Current Visit: No Status: Chronic Assessment and plan: continue home meds (7) DVT prophylaxis Current Visit: No Status: Acute Assessment and plan: anticoagulated with Eliquis (8) Morbid obesity Current Visit: No Status: Chronic - Time Spent With Patient Total time spent is greater than 50% in coordination of care (as documented) at patient's floor/unit and/or counseling patient:
[2017-07-20] MEDS: Sennosides/Docusate Sodium TABLET PO SCH (20:18)
[2017-07-20] MEDS: Apixaban 5 MG TABLET PO SCH (20:18)
[2017-07-20] MEDS: *HR* Morphine Sulfate SR (12 HR) 15 MG TABLET.ER PO SCH (20:18)
[2017-07-20] MEDS: Carbidopa/Levodopa 25/100 TABLET PO SCH (20:18)
[2017-07-20] MEDS: Ipratropium/Albuterol Neb 3 ML IH SCH (20:43)
[2017-07-20] MEDS: Perphenazine 8 MG TABLET PO SCH (20:57)
[2017-07-20] MEDS: Perphenazine 2 MG TABLET PO SCH (20:57)
[2017-07-20] MEDS: Insulin LISPRO 300 UNITS/3 ML VIAL SQ SCH (20:58)
[2017-07-20 21:29] LABS: Adenovirus Not Detected (Not Detect); Bordetella Pertussis Not Detected (Not Detect); Chlamydophila pneumoniae Not Detected (Not Detect); Coronavirus 229E Not Detected (Not Detect); Coronavirus HKU1 Not Detected (Not Detect); Coronavirus NL63 Not Detected (Not Detect); Coronavirus OC43 Not Detected (Not Detect); Human Metapneumovirus Not Detected (Not Detect); Human Rhinovirus/Enterovirus Not Detected (Not Detect); Influenza A Subtype 2009 H1 Not Detected (Not Detect); Influenza A Untypeable Not Detected (Not Detect); Influenza B Not Detected (Not Detect); Mycoplasma pneumoniae Not Detected (Not Detect); Parainfluenza Virus 1 Not Detected (Not Detect); Parainfluenza Virus 2 Not Detected (Not Detect); Parainfluenza Virus 3 Not Detected (Not Detect); Parainfluenza Virus 4 Not Detected (Not Detect); Respiratory Syncytial Virus Not Detected (Not Detect)
[2017-07-20] MEDS: MethylPREDNISolone 40 MG/ML VIAL IVP SCH (23:48)
[2017-07-21] MEDS: Ipratropium/Albuterol Neb 3 ML IH SCH ×7 (00:41→23:27)
[2017-07-21] MEDS: *HR* Morphine Sulfate SR (12 HR) 15 MG TABLET.ER PO SCH ×2 (05:54→17:02)
[2017-07-21 05:59] LABS: Basophils % 0.1 %; Hematocrit 33.3 % (35.3-44.9); Hemoglobin 10.4 g/dL (11.5-15.4); Lymphocytes % 7.1 %; Mean Corpuscular HGB Conc 31.2 g/dL (31.6-35.5); Mean Corpuscular Hemoglobin 27.7 pg (28.0-33.3); Mean Corpuscular Volume 88.6 fL (83.0-100.0); Mean Platelet Volume 10.6 fL (9.4-12.4); Monocytes # 0.2 K/mcL (0.0-1.3); Monocytes % 1.1 %; Neutrophils # 12.3 K/mcL (1.6-8.9); Nucleated Red Blood Cells 0.1 /100 WBC (0); Platelet Count 319 K/mcL (140-400); Red Blood Count 3.76 M/mcL (3.82-4.97); Red Cell Distribution Width 17.7 % (11.5-14.5); Segmented Neutrophils % 90.7 %
[2017-07-21 06:14] LABS: BUN/Creatinine Ratio 22 (6-26); Blood Urea Nitrogen 13 mg/dL (8-23); Calcium 9.7 mg/dL (8.6-10.3); Carbon Dioxide 34 mEq/L (23-29); Chloride 98 mEq/L (98-107); Glucose 159 mg/dL (70-105); Magnesium 1.5 mg/dL (1.6-2.6); Osmolality,Calculated 291 (280-300); Phosphorous 3.7 mg/dL (2.7-4.5); Potassium 4.3 mEq/L (3.5-5.1); Sodium 139 mEq/L (136-145); eGFR For African Americans > 60 (> 60); eGFR For Non-African Americans > 60 (> 60)
[2017-07-21] MEDS: Carbidopa/Levodopa 25/100 TABLET PO SCH ×2 (08:20→20:14)
[2017-07-21] MEDS: Aspirin Enteric Coated 81 MG Tablet PO SCH (08:21)
[2017-07-21] MEDS: Multivit/Ca/Min/Fe/FA 1 TAB TABLET PO SCH (08:21)
[2017-07-21] MEDS: Apixaban 5 MG TABLET PO SCH ×2 (08:21→20:13)
[2017-07-21] MEDS: Sennosides/Docusate Sodium TABLET PO SCH ×2 (08:21→20:13)
[2017-07-21] MEDS: Diltiazem CD (24hr) 300 MG CAPSULE PO SCH (08:22)
[2017-07-21] MEDS: Levofloxacin 750 MG/150 ML 750 MG/150 ML BAG IVPB SCH (08:22)
[2017-07-21] MEDS: MethylPREDNISolone 40 MG/ML VIAL IVP SCH ×3 (08:22→23:15)
[2017-07-21] MEDS: Insulin LISPRO 300 UNITS/3 ML VIAL SQ SCH ×4 (08:26→20:15)
--- NOTE | 2017-07-21 11:40 | Internal Med Progress Note ---
Date of Encounter: 07/21/17 Time of Encounter: 11:38 - Assessment and plan (1) Atrial fibrillation Current Visit: No Status: Chronic Assessment and plan: Chronic rate is well controlled Qualifiers: Atrial fibrillation type: chronic Qualified Code(s): I48.2 - Chronic atrial fibrillation (2) Chronic anticoagulation Current Visit: No Status: Chronic Assessment and plan: Patient is on and liquids (3) Hypertension Current Visit: No Status: Chronic Assessment and plan: Chronic and well controlled Qualifiers: Hypertension type: essential hypertension Qualified Code(s): I10 - Essential (primary) hypertension (4) Diabetes mellitus Current Visit: No Status: Chronic Assessment and plan: Chronic we will continue sliding scale Qualifiers: Diabetes mellitus type: type 2 Diabetes mellitus fci insulin use: without emt intermediate use Diabetes mellitus complication status: with unspecified complications Qualified Code(s): E11.8 - Type 2 diabetes mellitus with unspecified complications (5) Acute exacerbation of chronic obstructive pulmonary disease (COPD) Current Visit: Yes Status: Chronic Assessment and plan: Chronic with acute exacerbation exam patient is to wheezing will continue current treatment (6) Morbid obesity Current Visit: No Status: Chronic - Time Spent With Patient Total time spent is greater than 50% in coordination of care (as documented) at patient's floor/unit and/or counseling patient: - Subjective Interval history: Patient with history of chronic atrial fibrillation, COPD on long-term oxygen, CVA, diabetes, high cholesterol, hypertension, Parkinson, morbid obesity. Patient was admitted from [facility] due to 2 days of increased shortness of breath , cough that is nonproductive chest x-ray does not show pneumonia patient is admitted for acute COPD exacerbation today patient said he feels much better on exam he is still wheezing will continue steroid and breathing treatment - Constitutional Vitals: Temp Pulse Resp BP Pulse Ox 98.5 F 64 16 102/77 97 07/21/17 11:23 07/21/17 11:23 07/21/17 11:34 07/21/17 11:23 07/21/17 11:34 General appearance: Present: A&O X 3, morbidly obese, no acute distress, answers questions appropriately - Eye Eye exam: Present: PERRL, conjuntiva pink, sclera anicteric Pupils: Present: PERRL - Neck Neck exam general surgery: Present: supple, trachea midline. Absent: lymphadenopathy - Respiratory Respiratory exam: Present: rhonchi, wheezes - Cardiovascular Cardiovascular exam: Present: irregular rhythm - GI/Abdominal GI/Abdominal exam: Present: distended Internal Medicine: Result - Labs CBC & Chem 7: 07/21/17 04:59 07/21/17 04:59 Labs: Short CBC 07/21/17 Range/Units 04:59 WBC 13.5 H (4.3-11.1) K/mcL Hgb 10.4 L (11.5-15.4) g/dL Hct 33.3 L (35.3-44.9) % Plt Count 319 (140-400) K/mcL Neutrophils # 12.3 H (1.6-8.9) K/mcL BMP 07/21/17 04:59 Sodium 139 Potassium 4.3 Chloride 98 Carbon Dioxide 34 H BUN 13 Creatinine 0.58 L Glucose 159 H Calcium 9.7 Consult Discharge Plan - Plan Referrals: Luigi Stanley MD [Primary Care Provider] -
--- NOTE | 2017-07-21 14:06 | Electrocardiograph Report ---
[place] [address] Test Date: 2017-07-20 Pat Name: Mine Fernandez Department: 102 Room: 2NE28 Gender: F Internal Affairs Commander: [facility] : 1945 Requested By: Kelsi Cote Order Number: [id number] Reading MD: Riya Mccray Measurements Intervals [place] Rate: 82 P: NM: 0 QRS: 54 QRSD: 89 T: 76 QT: 402 QTc: 441 Interpretive Statements ATRIAL FIBRILLATION NONSPECIFIC ST-WAVE ABNORMALITY ABNORMAL RHYTHM ECG Electronically Signed On 07-21-2017 14:04:35 EDT by Riya Mccray
--- NOTE | 2017-07-21 14:42 | Electrocardiograph Report ---
[place] [address] Test Date: 2017-07-20 Pat Name: Mine Fernandez Department: 102 Room: 2NE28 Gender: F Script Supervisor: Ondina : 1945 Requested By: Jamal Kennedy Order Number: [id number] Reading MD: Riya Mccray Measurements Intervals [place] Rate: 91 P: CO: 0 QRS: 37 QRSD: 89 T: 72 QT: 371 QTc: 420 Interpretive Statements ATRIAL FIBRILLATION MODERATE ST DEPRESSION [0.05+ mV ST DEPRESSION] Electronically Signed On 07-21-2017 14:40:23 EDT by Riya Mccray
[2017-07-21] MEDS: (Tiotropium Br/Olodaterol Hcl [Stiolto Respimat Inhal IH SCH (17:05)
[2017-07-21] MEDS: Perphenazine 8 MG TABLET PO SCH (20:13)
[2017-07-21] MEDS: Perphenazine 2 MG TABLET PO SCH (20:14)
[2017-07-22] MEDS: Ipratropium/Albuterol Neb 3 ML IH SCH ×5 (03:32→19:49)
[2017-07-22] MEDS: *HR* Morphine Sulfate SR (12 HR) 15 MG TABLET.ER PO SCH ×2 (05:23→17:03)
[2017-07-22] MEDS: Insulin LISPRO 300 UNITS/3 ML VIAL SQ SCH ×4 (09:00→22:19)
[2017-07-22] MEDS: Multivit/Ca/Min/Fe/FA 1 TAB TABLET PO SCH (09:02)
[2017-07-22] MEDS: Aspirin Enteric Coated 81 MG Tablet PO SCH (09:02)
[2017-07-22] MEDS: Apixaban 5 MG TABLET PO SCH ×2 (09:02→22:15)
[2017-07-22] MEDS: MethylPREDNISolone 40 MG/ML VIAL IVP SCH ×2 (09:03→17:03)
[2017-07-22] MEDS: Diltiazem CD (24hr) 300 MG CAPSULE PO SCH (09:03)
[2017-07-22] MEDS: Sennosides/Docusate Sodium TABLET PO SCH ×2 (09:03→22:15)
[2017-07-22] MEDS: Carbidopa/Levodopa 25/100 TABLET PO SCH ×2 (09:03→22:16)
[2017-07-22] MEDS: Levofloxacin 750 MG/150 ML 750 MG/150 ML BAG IVPB SCH (09:03)
[2017-07-22] MEDS: (Tiotropium Br/Olodaterol Hcl [Stiolto Respimat Inhal IH SCH (09:23)
--- NOTE | 2017-07-22 10:48 | Internal Med Progress Note ---
Date of Encounter: 07/22/17 Time of Encounter: 10:45 - Assessment and plan (1) Acute exacerbation of chronic obstructive pulmonary disease (COPD) Current Visit: Yes Status: Chronic Assessment and plan: Acute on chronic hypoxic respiratory failure due to Acute COPD exacerbation secondary to acute bacterial bronchitis Continue Levaquin day #2, received Rocephin and azithromycin on the first day Continue IV steroids/Solu-Medrol Duo nebs, oxygen therapy CT chest negative for any infectious etiology contributing to the acute exacerbation will obtain respiratory infection panel (2) Atrial fibrillation Current Visit: No Status: Chronic Assessment and plan: A. fib with RVR likely triggered by acute COPD exacerbation Continue cardizem and Eliquis, May start metoprolol Qualifiers: Atrial fibrillation type: chronic Qualified Code(s): I48.2 - Chronic atrial fibrillation (3) Parkinson disease Current Visit: No Status: Chronic Assessment and plan: continue Sinemet (4) Hypothyroidism Current Visit: No Status: Chronic Assessment and plan: levothyroxine Qualifiers: Hypothyroidism type: unspecified Qualified Code(s): E03.9 - Hypothyroidism , unspecified (5) Diabetes mellitus Current Visit: No Status: Chronic Assessment and plan: hold oral hyperglycemic agents sliding scale insulin Qualifiers: Diabetes mellitus type: type 2 Diabetes mellitus oysterman insulin use: without mcc use Diabetes mellitus complication status: with unspecified complications Qualified Code(s): E11.8 - Type 2 diabetes mellitus with unspecified complications (6) HTN (hypertension) Current Visit: No Status: Chronic Assessment and plan: Stable Qualifiers: Hypertension type: essential hypertension Qualified Code(s): I10 - Essential (primary) hypertension (7) Morbid obesity Current Visit: No Status: Chronic - Time Spent With Patient Total time spent is greater than 50% in coordination of care (as documented) at patient's floor/unit and/or counseling patient: - Subjective Interval history: Feeling less short of breath, denies any chest pain, no abdominal pain, no fevers or chills, no dysuria or diarrhea - Constitutional Vitals: Temp Pulse Resp BP Pulse Ox 98.7 F 108 16 144/80 95 07/22/17 07:11 07/22/17 07:11 07/22/17 07:36 07/22/17 07:11 07/22/17 07:36 General appearance: Present: A&O X 3, morbidly obese, no acute distress, answers questions appropriately - Head Head exam: Present: atraumatic, normocephalic - Eye Eye exam: Present: PERRL, conjuntiva pink, sclera anicteric Pupils: Present: PERRL - Neck Neck exam general surgery: Present: supple, trachea midline. Absent: lymphadenopathy - Respiratory Respiratory exam: Present: CTAB, wheezes (Diffuse wheezing). Absent: accessory muscle use, rales, rhonchi - Cardiovascular Cardiovascular exam: Present: irregular rhythm, RRR, +S1, +S2, tachycardia. Absent: diastolic murmur, gallop, rubs, systolic murmur - GI/Abdominal GI/Abdominal exam: Present: normal bowel sounds, soft, no peritoneal signs. Absent: distended, tenderness - Extremities Exam Extremities exam: Present: warm, radial pulses palpable and symmetrical. Absent : calf tenderness, cyanotic, pedal edema - Neurological Exam Neurological exam: Present: CN II-XII intact, oriented X3, no focal deficits. Absent: pronater drift, facial droop, speech deficit - Skin Skin exam: Present: dry, intact Internal Medicine: Result - Labs CBC & Chem 7: 07/21/17 04:59 07/21/17 04:59 Consult Discharge Plan - Plan Referrals: Luigi Stanley MD [Primary Care Provider] -
[2017-07-22] MEDS: Perphenazine 8 MG TABLET PO SCH (22:15)
[2017-07-22] MEDS: Perphenazine 2 MG TABLET PO SCH (22:16)
[2017-07-22] MEDS ORDERED: Melatonin 3 MG TABLET PO PRN (22:17)
[2017-07-23] MEDS: MethylPREDNISolone 40 MG/ML VIAL IVP SCH ×2 (00:17→08:41)
[2017-07-23] MEDS: Ipratropium/Albuterol Neb 3 ML IH SCH ×4 (00:18→11:03)
[2017-07-23] MEDS: *HR* Morphine Sulfate SR (12 HR) 15 MG TABLET.ER PO SCH (05:32)
[2017-07-23] MEDS: Insulin LISPRO 300 UNITS/3 ML VIAL SQ SCH ×2 (08:39→11:02)
[2017-07-23] MEDS: Levofloxacin 750 MG/150 ML 750 MG/150 ML BAG IVPB SCH (08:40)
[2017-07-23] MEDS: Sennosides/Docusate Sodium TABLET PO SCH (08:40)
[2017-07-23] MEDS: Carbidopa/Levodopa 25/100 TABLET PO SCH (08:41)
[2017-07-23] MEDS: Aspirin Enteric Coated 81 MG Tablet PO SCH (08:41)
[2017-07-23] MEDS: Multivit/Ca/Min/Fe/FA 1 TAB TABLET PO SCH (08:41)
[2017-07-23] MEDS: Diltiazem CD (24hr) 300 MG CAPSULE PO SCH (08:42)
[2017-07-23] MEDS: Apixaban 5 MG TABLET PO SCH (08:42)
[2017-07-23] MEDS ORDERED: Nystatin POWDER 30 GM BOTTLE TP SCH (09:00)
--- NOTE | 2017-07-23 09:01 | Discharge Summary ---
- NOTES TO OUTPATIENT PROVIDER Notes to Outpatient Provider: Follow-up with primary care physician within the next 7 days. Complete prednisone taper 60 mg for 5 days and decrease by 10 mg every fifth day. Complete 4 more days of Levaquin. Continue Lasix due to congestion/pedal edema. Continue metoprolol. Orders not resulted at time of discharge: Pending orders 07/23/17 08:49 Basic Metabolic Panel Routine Magnesium Routine Date of Encounter: 07/23/17 Time of Encounter: 08:57 - Discharge Diagnosis (1) Acute exacerbation of chronic obstructive pulmonary disease (COPD) Priority: Primary Status: Chronic Assessment and Plan: Acute on chronic hypoxic respiratory failure due to Acute COPD exacerbation secondary to acute bacterial bronchitis (2) Atrial fibrillation Priority: Primary Status: Chronic Assessment and Plan: A. fib with RVR likely triggered by acute COPD exacerbation Continue cardizem and Eliquis, Was started on metoprolol Qualifiers: Atrial fibrillation type: chronic Qualified Code(s): I48.2 - Chronic atrial fibrillation (3) Parkinson disease Priority: Primary Status: Chronic (4) Hypothyroidism Priority: Primary Status: Chronic Qualifiers: Hypothyroidism type: unspecified Qualified Code(s): E03.9 - Hypothyroidism , unspecified (5) Diabetes mellitus Priority: Primary Status: Chronic Qualifiers: Diabetes mellitus type: type 2 Diabetes mellitus group home insulin use: without intermediate school teacher use Diabetes mellitus complication status: with unspecified complications Qualified Code(s): E11.8 - Type 2 diabetes mellitus with unspecified complications (6) HTN (hypertension) Priority: Primary Status: Chronic Qualifiers: Hypertension type: essential hypertension Qualified Code(s): I10 - Essential (primary) hypertension (7) Morbid obesity Priority: Primary Status: Chronic Hospital course: Ms. Fernandez is a 72 year old female (male who identifies herself as a female) with PMH Of AFib on Eliquis and cardizem, Parkinsons disease, COPD on O2 LTOT, DM not insulin dep, HTN, hypothyroidism, morbid obesity, HLD who presented to the ER for worsening shortness of breath x two days. Pt stated her symptoms persisted despite her taking nebulizer treatments at the [place]. She is on chronic steroid therapy. Pt received IV steroids, IV abx, and bronchodilator support, and bipap to which she responded appropriately. She reported having a cough but denied any fever or chills. Denied any chest pain, abd pain, nausea, vomiting at this time. Developed A. fib with RVR likely triggered by acute COPD exacerbation, metoprolol qs added. Received 3 days of Levaquin , received Rocephin and azithromycin on the first day ReceivedSolu-Medrol Duo nebs, oxygen therapy CT chest negative for any infectious etiology contributing to the acute exacerbation will obtain respiratory infection panel Was given the option to stay another night but prefers to go home. Understands risks. - Time Spent with Patient Total time spent providing and/or coordinating discharge services: Greater than 30 minutes (40 min) - Discharge Medications Prescriptions: Furosemide [Lasix] 20 mg PO DAILY #30 tablet Levofloxacin [Levaquin] 750 mg PO DAILY #4 tablet Metoprolol [Lopressor] 12.5 mg PO BID #60 tablet predniSONE [PredniSONE] 10 mg PO DAILY 30 Days tablet Home Medications: Apixaban [Eliquis] 5 mg PO BID 04/15/16 [History] Aspirin [Lo-Dose Aspirin EC] 162 mg PO DAILY 04/15/16 [History] Atorvastatin Calcium [Lipitor] 20 mg PO DAILY 04/15/16 [History] Cyanocobalamin (B-12) [Vitamin B12] 1,000 cap PO QWEEK 04/15/16 [History] Diltiazem HCl [Diltiazem 24Hr ER] 300 mg PO DAILY 04/15/16 [History] Losartan [Cozaar] 50 mg PO DAILY 04/15/16 [History] Tiotropium [Spiriva] 1 cap PO DAILY 04/15/16 [History] Trazodone HCl 200 mg PO HS 04/15/16 [History] metFORMIN [Glucophage] 500 mg PO BIDWM 04/15/16 [History] Acetaminophen [Tylenol] 650 mg PO TID PRN 06/11/16 [History] Multivitamin [One Daily Essential] 1 tab PO DAILY 06/11/16 [History] Omeprazole [PriLOSEC] 40 mg PO DAILY 06/11/16 [History] Oxybutynin Chloride [Ditropan Xl] 5 mg PO DAILY 06/11/16 [History] Sennosides/Docusate Sodium [Senna Plus] 1 tab PO BID 06/11/16 [History] Carbidopa/Levodopa 25/100 [Sinemet 25/100] 1 each PO BID #60 tablet 06/14/16 [Rx ] Benzonatate [Tessalon] 200 mg PO Q8H PRN 04/16/17 [History] Budesonide [Pulmicort Flexhaler 180mcg] 1 puff IH BID 04/16/17 [History] GuaiFENesin/Dextromethorphan [Robitussin/Dm] 10 ml PO Q4H PRN 04/16/17 [History] Ipratropium/Albuterol Neb [Duoneb] 3 ml IH Q6H PRN 04/16/17 [History] Levothyroxine Sodium [Synthroid] 200 mcg PO QAM 04/16/17 [History] Montelukast [Singulair] 10 mg PO DAILY 04/16/17 [History] Tiotropium Br/Olodaterol HCl [Stiolto Respimat Inhal [place]] 2 puff IH QAM [History] Tizanidine HCl 4 mg PO DAILY PRN 04/16/17 [History] Morphine Sulfate SR (12 HR) [MS Contin] 1 tab PO Q12HR 07/20/17 [History] Oxycodone HCl [Oxaydo] 5 mg PO Q4H PRN 07/20/17 [History] Paroxetine [Paxil] 60 mg PO DAILY 07/20/17 [History] Perphenazine [Trilafon] 10 mg PO HS 07/20/17 [History] Furosemide [Lasix] 20 mg PO DAILY #30 tablet 07/23/17 [Rx] Levofloxacin [Levaquin] 750 mg PO DAILY #4 tablet 07/23/17 [Rx] Metoprolol [Lopressor] 12.5 mg PO BID #60 tablet 07/23/17 [Rx] predniSONE [PredniSONE] 10 mg PO DAILY 30 Days tablet 07/23/17 [Rx] Allergies/Adverse Reactions: 3 Allergy/AdvReac Type Severity Reaction Status Date / Time No Known Allergies Allergy Verified 12/04/15 19:16 Date of admission: 07/20/17 16:19 Primary care physician: Luigi Stanley MD Consults: 07/21/17 15:20 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 to Hollow Handle 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 [CONS] Routine Reason for Consult: Patient from [facility] - Constitutional Vitals: Temp Pulse Resp BP Pulse Ox 97.7 F 79 20 125/68 94 07/23/17 08:16 07/23/17 08:16 07/23/17 08:16 07/23/17 08:16 07/23/17 08:16 General appearance: Present: A&O X 3, morbidly obese, no acute distress, answers questions appropriately Exam: General appearance: Present: A&O X 3, morbidly obese, no acute distress, answers questions appropriately - Head Head exam: Present: atraumatic, normocephalic - Eye Eye exam: Present: PERRL, conjuntiva pink, sclera anicteric Pupils: Present: PERRL - Neck Neck exam general surgery: Present: supple, trachea midline. Absent: lymphadenopathy - Respiratory Respiratory exam: Present: CTAB, wheezes ( wheezing is improving). Absent: accessory muscle use, rales, rhonchi - Cardiovascular Cardiovascular exam: Present: irregular rhythm, RRR, +S1, +S2, tachycardia. Absent: diastolic murmur, gallop, rubs, systolic murmur - GI/Abdominal GI/Abdominal exam: Present: normal bowel sounds, soft, no peritoneal signs. Absent: distended, tenderness - Extremities Exam Extremities exam: Present: warm, radial pulses palpable and symmetrical. Absent : calf tenderness, cyanotic, pedal edema - Neurological Exam Neurological exam: Present: CN II-XII intact, oriented X3, no focal deficits. Absent: pronater drift, facial droop, speech deficit - Skin Skin exam: Present: dry, intact - Patient Status Disposition: Home, Self-Care Condition: Good Overall status at discharge: patient is progressing back to baseline - Discharge Instructions Follow Up With: Luigi Stanley MD [Primary Care Provider] - - Diet and Activity Activity: wear oxygen at all times Diet: diabetic diet
[2017-07-23 09:51] LABS: BUN/Creatinine Ratio 46 (6-26); Blood Urea Nitrogen 29 mg/dL (8-23); Calcium 9.3 mg/dL (8.6-10.3); Carbon Dioxide 31 mEq/L (23-29); Chloride 101 mEq/L (98-107); Glucose 195 mg/dL (70-105); Magnesium 2.1 mg/dL (1.6-2.6); Osmolality,Calculated 297 (280-300); Potassium 4.5 mEq/L (3.5-5.1); Sodium 138 mEq/L (136-145); eGFR For African Americans > 60 (> 60); eGFR For Non-African Americans > 60 (> 60)
--- NOTE | 2017-07-23 11:44 | Physician Discharge Referral ---
[facility] Referral Info Provider in Charge after Transfer: PCP Institutional Level of Care: Skilled - Diagnosis (1) Acute exacerbation of chronic obstructive pulmonary disease (COPD) Status: Chronic (2) Atrial fibrillation Status: Chronic (3) Parkinson disease Status: Chronic (4) Hypothyroidism Status: Chronic (5) Diabetes mellitus Status: Chronic (6) HTN (hypertension) Status: Chronic (7) Morbid obesity Status: Chronic - Transfer Medications Prescriptions: Furosemide [Lasix] 20 mg PO DAILY #30 tablet Levofloxacin [Levaquin] 750 mg PO DAILY #4 tablet Metoprolol [Lopressor] 12.5 mg PO BID #60 tablet predniSONE [PredniSONE] 10 mg PO DAILY 30 Days tablet Home Medications: Apixaban [Eliquis] 5 mg PO BID 04/15/16 [History] Aspirin [Lo-Dose Aspirin EC] 162 mg PO DAILY 04/15/16 [History] Atorvastatin Calcium [Lipitor] 20 mg PO DAILY 04/15/16 [History] Cyanocobalamin (B-12) [Vitamin B12] 1,000 cap PO QWEEK 04/15/16 [History] Diltiazem HCl [Diltiazem 24Hr ER] 300 mg PO DAILY 04/15/16 [History] Losartan [Cozaar] 50 mg PO DAILY 04/15/16 [History] Tiotropium [Spiriva] 1 cap PO DAILY 04/15/16 [History] Trazodone HCl 200 mg PO HS 04/15/16 [History] metFORMIN [Glucophage] 500 mg PO BIDWM 04/15/16 [History] Acetaminophen [Tylenol] 650 mg PO TID PRN 06/11/16 [History] Multivitamin [One Daily Essential] 1 tab PO DAILY 06/11/16 [History] Omeprazole [PriLOSEC] 40 mg PO DAILY 06/11/16 [History] Oxybutynin Chloride [Ditropan Xl] 5 mg PO DAILY 06/11/16 [History] Sennosides/Docusate Sodium [Senna Plus] 1 tab PO BID 06/11/16 [History] Carbidopa/Levodopa 25/100 [Sinemet 25/100] 1 each PO BID #60 tablet 06/14/16 [Rx ] Benzonatate [Tessalon] 200 mg PO Q8H PRN 04/16/17 [History] Budesonide [Pulmicort Flexhaler 180mcg] 1 puff IH BID 04/16/17 [History] GuaiFENesin/Dextromethorphan [Robitussin/Dm] 10 ml PO Q4H PRN 04/16/17 [History] Ipratropium/Albuterol Neb [Duoneb] 3 ml IH Q6H PRN 04/16/17 [History] Levothyroxine Sodium [Synthroid] 200 mcg PO QAM 04/16/17 [History] Montelukast [Singulair] 10 mg PO DAILY 04/16/17 [History] Tiotropium Br/Olodaterol HCl [Stiolto Respimat Inhal [place]] 2 puff IH QAM [History] Tizanidine HCl 4 mg PO DAILY PRN 04/16/17 [History] Morphine Sulfate SR (12 HR) [MS Contin] 1 tab PO Q12HR 07/20/17 [History] Oxycodone HCl [Oxaydo] 5 mg PO Q4H PRN 07/20/17 [History] Paroxetine [Paxil] 60 mg PO DAILY 07/20/17 [History] Perphenazine [Trilafon] 10 mg PO HS 07/20/17 [History] Furosemide [Lasix] 20 mg PO DAILY #30 tablet 07/23/17 [Rx] Levofloxacin [Levaquin] 750 mg PO DAILY #4 tablet 07/23/17 [Rx] Metoprolol [Lopressor] 12.5 mg PO BID #60 tablet 07/23/17 [Rx] predniSONE [PredniSONE] 10 mg PO DAILY 30 Days tablet 07/23/17 [Rx] Allergies/Adverse Reactions: 3 Allergy/AdvReac Type Severity Reaction Status Date / Time No Known Allergies Allergy Verified 12/04/15 19:16 - Respiratory Orders Smoking Cessation: Smoking cessation has been advised. For more information, call the [place] Tobacco Quit Line at 8-166-KEUV-NOW. - Advance Directives Code Status: Full Code - Treatments List/Other: Follow-up with primary care physician within the next 7 days. Complete prednisone taper 60 mg for 5 days and decrease by 10 mg every fifth day. Complete 4 more days of Levaquin. Continue Lasix due to congestion/pedal edema. Continue metoprolol. - Diet Orders No Added Salt (EBENEZER) CERTIFICATION: I certify that the transfer of the above named patient to an Extended Care Facility is necessary for the continuing treatment of the diagnosis listed. The above information is true and accurate reflection of patient's current condition. Confidential - Redisclosure prohibited without a patient's written consent.
[2017-07-23 11:50] VITALS: BP 110/56
[2017-08-11 09:35] LABS: Hematocrit 34.2 % (35.3-44.9); Hemoglobin 10.7 g/dL (11.5-15.4); Red Blood Count 3.81 M/mcL (3.82-4.97)
== END 2017-07-23 13:11 ==
LOC: EMEROO 12:44 → 2NENU 12:44 → EDSEX 16:19 → 2NENU 17:30
PROVIDERS: ADMIT Internal Medicine Nephrology; ATTEND Internal Medicine Nephrology

== ENCOUNTER 2019-08-25 00:12 | Inpatient (IN) ==
[2019-08-25] MEDS ORDERED: methylPREDNISolone 125 MG/2 ML VIAL IVP ONE (00:32)
[2019-08-25] MEDS ORDERED: Ipratropium/Albuterol Neb 3 ML IH ONE (00:32)
[2019-08-25 01:18] LABS: INR 1.3; Prothrombin Time 14.8 Seconds (9.4-12.1)
[2019-08-25 01:19] LABS: Eosinophils % 0.2 %; Hemoglobin 8.2 g/dL (12.9-16.9); Mean Platelet Volume 10.2 fL (9.4-12.4); Nucleated Red Blood Cells 0.1 /100 WBC (0)
[2019-08-25 01:21] LABS: Activated Partial Thrombo Time 30.5 Seconds (26.0-36.0); Basophils # 0.1 K/mcL (0.0-0.2); Basophils % 0.4 %; Hematocrit 32.5 % (37.5-50.1); Immature Granulocytes % 1.3 % (0-4); Lymphocytes % 5.2 %; Mean Corpuscular HGB Conc 25.2 g/dL (31.6-35.5); Mean Corpuscular Hemoglobin 19.8 pg (28.0-33.3); Mean Corpuscular Volume 78.3 fL (83.0-100.0); Monocytes # 2.2 K/mcL (0.0-1.3); Monocytes % 11.4 %; Platelet Count 509 K/mcL (140-400); Red Blood Count 4.15 M/mcL (4.19-5.50); Red Cell Distribution Width 20.9 % (11.5-14.5); Segmented Neutrophils % 81.5 %; White Blood Count 19.3 K/mcL (4.3-11.1)
[2019-08-25 01:24] LABS: Neutrophils # 15.7 K/mcL (1.6-8.9)
[2019-08-25 01:30] LABS: Alanine Aminotransferase 44 Units/L (7-52); Albumin 3.8 g/dL (3.5-5.7); Albumin/Globulin Ratio 1.3 (1.1-2.2); Alkaline Phosphatase 94 Units/L (34-104); Aspartate Amino Transferase 426 Units/L (13-39); BUN/Creatinine Ratio 25 (6-26); Bilirubin,Direct 0.2 mg/dL (0.0-0.2); Bilirubin,Indirect 0.3 mg/dL (0.0-1.0); Bilirubin,Total 0.5 mg/dL (0.3-1.0); Blood Urea Nitrogen 33 mg/dL (8-23); Calcium 9.2 mg/dL (8.6-10.3); Carbon Dioxide 38 mEq/L (23-29); Chloride 89 mEq/L (98-107); Glucose 128 mg/dL (70-105); Magnesium 1.7 mg/dL (1.6-2.6); Osmolality,Calculated 285 (280-300); Phosphorous 5.4 mg/dL (2.7-4.5); Potassium 5.1 mEq/L (3.5-5.1); Sodium 133 mEq/L (136-145); Total Protein 6.8 g/dL (6.4-8.9); Troponin I < 0.03 ng/mL (< 0.04); eGFR For African Americans > 60 (> 60); eGFR For Non-African Americans 53 (> 60)
[2019-08-25 01:38] LABS: ABG Base Excess 13 mEq/L (-2 to 3); ABG HCO3 43 mEq/L (21-27); ABG Oxygen Saturation 100 % (95-98); ABG PCO2 86 mmHg (35-45); ABG PH 7.31 pH Units (7.32-7.45); ABG PO2 251 mmHg (85-104); ABG TCO2 46 mEq/L (20-26); Blood Gas Modality AVAPS; Blood Gas VT 550 cc
[2019-08-25 01:53] LABS: Anisocytosis 1+ (Not Present); Hypochromasia Present (Not Present)
[2019-08-25] MEDS ORDERED: Piperacillin/Tazobactam 3.375 GM in 0.9 % Sodium Chloride Mini Bag 100 ML IVPB ONE (01:58)
[2019-08-25] MEDS ORDERED: 0.9 % Sodium Chloride 500 ML IVC ONE (02:50)
[2019-08-25] MEDS ORDERED: Vancomycin 2,000 MG/520 ML IV.SOLN IVPB ONE (03:00)
[2019-08-25 03:27] LABS: VBG HCO3 39 mEq/L (21-27); VBG PCO2 74 mmHg (41-51); VBG PH 7.33 pH Units (7.32-7.42); VBG PO2 214 mmHg (25-50)
[2019-08-25 03:39] LABS: Bacteria,Urine Few per hpf (None-Few); Bilirubin,Urine Negative (Negative); Blood,Urine Negative (Negative); Clarity,Urine Turbid (Clear); Color,Urine Yellow (Yellow); Glucose,Urine (UA) Normal (Normal); Hyaline Casts,Urine Many per lpf (None Seen); Ketones,Urine Trace mg/dL (Negative); Leukocyte Esterase,Urine Negative (Negative); Mucus,Urine Few per lpf (None-Few); Nitrite,Urine Negative (Negative); PH,Urine 5.5 pH Units (5.0-8.0); Protein,Urine 70 mg/dL (Neg-Trace); RBC,Urine 0-3 per hpf (0-3); Specific Gravity,Urine 1.024 (1.010-1.025); Squamous Epithelial Cell,Urine Few per hpf (None-Few)
[2019-08-25] MEDS ORDERED: Naloxone 0.4 MG/ML INJ IVP PRN (04:47)
[2019-08-25 05:55] LABS: Basophils % 0.1 %; Hematocrit 31.9 % (37.5-50.1); Hemoglobin 8.3 g/dL (12.9-16.9); Nucleated Red Blood Cells 0.1 /100 WBC (0); Segmented Neutrophils % 94.9 %
[2019-08-25 05:57] LABS: Immature Granulocytes % 0.6 % (0-4); Lymphocytes # 0.3 K/mcL (0.6-4.6); Lymphocytes % 1.5 %; Mean Corpuscular Hemoglobin 20.4 pg (28.0-33.3); Mean Corpuscular Volume 78.4 fL (83.0-100.0); Mean Platelet Volume 9.9 fL (9.4-12.4); Monocytes # 0.5 K/mcL (0.0-1.3); Monocytes % 2.9 %; Neutrophils # 16.6 K/mcL (1.6-8.9); Platelet Count 411 K/mcL (140-400); Red Blood Count 4.07 M/mcL (4.19-5.50); White Blood Count 17.5 K/mcL (4.3-11.1)
[2019-08-25] MEDS ORDERED: 0.9 % Sodium Chloride 1,000 ML IVC SCH (06:15)
[2019-08-25 06:19] LABS: BUN/Creatinine Ratio 29 (6-26); Blood Urea Nitrogen 35 mg/dL (8-23); Calcium 9.2 mg/dL (8.6-10.3); Carbon Dioxide 41 mEq/L (23-29); Chloride 89 mEq/L (98-107); Glucose 141 mg/dL (70-105); Osmolality,Calculated 288 (280-300); Potassium 5.2 mEq/L (3.5-5.1); Sodium 134 mEq/L (136-145); eGFR For African Americans > 60 (> 60); eGFR For Non-African Americans 58 (> 60)
[2019-08-25 06:23] LABS: Anisocytosis 1+ (Not Present); Hypochromasia Present (Not Present); Macrocytosis Present (Not Present); Platelet Estimate Normal (Normal); Poikilocytosis 1+ (Not Present)
[2019-08-25] MEDS: *HR* Heparin 5,000 UNIT/ML VIAL SQ SCH ×3 (06:59→19:29)
[2019-08-25] MEDS: Piperacillin/Tazobactam 3.375 GM in 0.9 % Sodium Chloride Mini Bag 100 ML IVPB SCH ×3 (07:52→23:41)
[2019-08-25] MEDS: Albuterol 2.5 MG/3 ML NEBULIZER IH SCH ×4 (11:05→23:33)
[2019-08-25] MEDS ORDERED: Haloperidol Lactate 5 MG/ML VIAL IVP ONE (12:26)
[2019-08-25] MEDS ORDERED: Benzonatate 100 MG CAPSULE PO PRN (12:52)
[2019-08-25] MEDS ORDERED: Cyanocobalamin (B-12) 1,000 MCG TABLET PO SCH (13:00)
[2019-08-25 14:06] LABS: ABG Base Excess 18 mEq/L (-2 to 3); ABG HCO3 46 mEq/L (21-27); ABG Oxygen Saturation 94 % (95-98); ABG PCO2 80 mmHg (35-45); ABG PH 7.37 pH Units (7.32-7.45); ABG PO2 76 mmHg (85-104); ABG TCO2 49 mEq/L (20-26); Blood Gas VT 550 cc
[2019-08-25] MEDS: Vancomycin 1,500 MG/265 ML IV.SOLN IVPB SCH (15:02)
[2019-08-25] MEDS: *HR* LORazepam 2 MG/ML VIAL IVP PRN (16:24)
[2019-08-25] MEDS: Morphine Sulfate ER (12 HR) 15 MG TABLET.ER PO SCH (16:52)
[2019-08-25] MEDS: Melatonin 3 MG TABLET PO SCH (19:28)
[2019-08-25] MEDS: Sennosides/Docusate Sodium TABLET PO SCH (19:29)
[2019-08-25] MEDS: *HR* LORazepam 0.5 MG TABLET PO SCH (19:29)
[2019-08-25] MEDS: MethylPREDNISolone 40 MG/ML VIAL IVP SCH (19:29)
[2019-08-25] MEDS: Carbidopa/Levodopa 25/100 TABLET PO SCH (19:29)
[2019-08-26] MEDS: Albuterol 2.5 MG/3 ML NEBULIZER IH SCH ×6 (03:13→23:22)
[2019-08-26] MEDS: *HR* LORazepam 2 MG/ML VIAL IVP PRN ×2 (03:21→23:36)
[2019-08-26] MEDS: Vancomycin 1,500 MG/265 ML IV.SOLN IVPB SCH ×2 (03:22→14:09)
[2019-08-26 04:24] LABS: Acinetobacter baumannii by PCR Not Detected (Not Detect); Candida albicans by PCR Not Detected (Not Detect); Candida glabrata by PCR Not Detected (Not Detect); Candida krusei by PCR Not Detected (Not Detect); Candida parapsilosis by PCR Not Detected (Not Detect); Candida tropicalis by PCR Not Detected (Not Detect); Enterobacter cloacae Cmplx PCR Not Detected (Not Detect); Enterobacteriaceae by PCR Not Detected (Not Detect); Enterococcus by PCR Not Detected (Not Detect); Escherichia coli by PCR Not Detected (Not Detect); Klebsiella oxytoca by PCR Not Detected (Not Detect); Klebsiella pneumoniae by PCR Not Detected (Not Detect); Proteus by PCR Not Detected (Not Detect); Pseudomonas aeruginosa by PCR Not Detected (Not Detect); Serratia marcescens by PCR Not Detected (Not Detect); Staphylococcus aureus by PCR Not Detected (Not Detect); Staphylococcus by PCR DETECTED (Not Detect); Streptococcus agalactiae(B)PCR Not Detected (Not Detect); Streptococcus by PCR Not Detected (Not Detect); Streptococcus pneumoniae PCR Not Detected (Not Detect); Streptococcus pyogenes (A) PCR Not Detected (Not Detect); blaKPC Carbapenem-Resist Gene Not Detected (Not Detect); mecA Methicillin-Resist Gene DETECTED (Not Detect); vanA/B Vancomycin-Resist Genes Not Detected (Not Detect)
[2019-08-26 05:14] LABS: Hemoglobin 7.6 g/dL (12.9-16.9)
[2019-08-26 05:15] LABS: VBG HCO3 39 mEq/L (21-27); VBG PCO2 47 mmHg (41-51); VBG PH 7.53 pH Units (7.32-7.42); VBG PO2 129 mmHg (25-50)
[2019-08-26 05:15] LABS: Mean Corpuscular HGB Conc 26.2 g/dL (31.6-35.5); Mean Corpuscular Hemoglobin 20.2 pg (28.0-33.3); Mean Corpuscular Volume 76.9 fL (83.0-100.0); Platelet Count 362 K/mcL (140-400); Red Blood Count 3.77 M/mcL (4.19-5.50); White Blood Count 12.8 K/mcL (4.3-11.1)
[2019-08-26 05:50] LABS: Alanine Aminotransferase 53 Units/L (7-52); Albumin 3.1 g/dL (3.5-5.7); Albumin/Globulin Ratio 1.2 (1.1-2.2); Alkaline Phosphatase 73 Units/L (34-104); Aspartate Amino Transferase 102 Units/L (13-39); BUN/Creatinine Ratio 36 (6-26); Bilirubin,Direct 0.1 mg/dL (0.0-0.2); Bilirubin,Indirect 0.3 mg/dL (0.0-1.0); Bilirubin,Total 0.4 mg/dL (0.3-1.0); Blood Urea Nitrogen 24 mg/dL (8-23); Carbon Dioxide 36 mEq/L (23-29); Chloride 95 mEq/L (98-107); Globulin 2.6 g/dL (2.4-3.5); Glucose 115 mg/dL (70-105); Magnesium 1.6 mg/dL (1.6-2.6); Osmolality,Calculated 289 (280-300); Phosphorous 1.8 mg/dL (2.7-4.5); Potassium 4.7 mEq/L (3.5-5.1); Sodium 137 mEq/L (136-145); Total Protein 5.7 g/dL (6.4-8.9); eGFR For African Americans > 60 (> 60); eGFR For Non-African Americans > 60 (> 60)
[2019-08-26] MEDS: Morphine Sulfate ER (12 HR) 15 MG TABLET.ER PO SCH ×2 (06:13→16:39)
[2019-08-26] MEDS: *HR* Heparin 5,000 UNIT/ML VIAL SQ SCH ×3 (06:13→21:42)
[2019-08-26] MEDS: Piperacillin/Tazobactam 3.375 GM in 0.9 % Sodium Chloride Mini Bag 100 ML IVPB SCH ×2 (08:09→16:39)
[2019-08-26] MEDS: MethylPREDNISolone 40 MG/ML VIAL IVP SCH ×2 (08:09→19:34)
[2019-08-26] MEDS: PARoxetine 30 MG TABLET PO SCH (08:10)
[2019-08-26] MEDS: Carbidopa/Levodopa 25/100 TABLET PO SCH ×2 (08:10→19:34)
[2019-08-26] MEDS: *HR* LORazepam 0.5 MG TABLET PO SCH ×2 (08:10→19:34)
[2019-08-26] MEDS: Sennosides/Docusate Sodium TABLET PO SCH ×2 (08:10→19:34)
[2019-08-26] MEDS: Aspirin Enteric Coated 81 MG Tablet PO SCH (08:10)
[2019-08-26] MEDS: DilTIAZem CD (24hr) 300 MG CAP.ER.24H PO SCH (08:10)
[2019-08-26] MEDS: Melatonin 3 MG TABLET PO SCH (19:34)
[2019-08-27] MEDS: Piperacillin/Tazobactam 3.375 GM in 0.9 % Sodium Chloride Mini Bag 100 ML IVPB SCH ×3 (00:37→15:16)
[2019-08-27] MEDS ORDERED: *HR* OxyCODONE Immed Rel 5 MG TABLET PO ONE (02:52)
[2019-08-27] MEDS ORDERED: Acetaminophen 325 MG TABLET PO PRN (02:52)
[2019-08-27] MEDS: Albuterol 2.5 MG/3 ML NEBULIZER IH SCH ×6 (03:37→22:59)
[2019-08-27 04:17] LABS: VBG HCO3 39 mEq/L (21-27); VBG PCO2 61 mmHg (41-51); VBG PH 7.42 pH Units (7.32-7.42); VBG PO2 156 mmHg (25-50)
[2019-08-27 04:25] LABS: Hematocrit 30.8 % (37.5-50.1); Hemoglobin 7.9 g/dL (12.9-16.9); Mean Corpuscular HGB Conc 25.6 g/dL (31.6-35.5); Mean Corpuscular Hemoglobin 20.2 pg (28.0-33.3); Mean Corpuscular Volume 78.6 fL (83.0-100.0); Mean Platelet Volume 9.5 fL (9.4-12.4); Platelet Count 392 K/mcL (140-400); Red Blood Count 3.92 M/mcL (4.19-5.50); Red Cell Distribution Width 21.1 % (11.5-14.5); White Blood Count 16.3 K/mcL (4.3-11.1)
[2019-08-27 04:41] LABS: BUN/Creatinine Ratio 33 (6-26); Blood Urea Nitrogen 24 mg/dL (8-23); Calcium 9.4 mg/dL (8.6-10.3); Carbon Dioxide 40 mEq/L (23-29); Chloride 95 mEq/L (98-107); Glucose 140 mg/dL (70-105); Magnesium 1.8 mg/dL (1.6-2.6); Osmolality,Calculated 294 (280-300); Potassium 5.3 mEq/L (3.5-5.1); Sodium 139 mEq/L (136-145); eGFR For African Americans > 60 (> 60); eGFR For Non-African Americans > 60 (> 60)
[2019-08-27] MEDS ORDERED: Vancomycin 500 MG in 0.9 % Sodium Chloride Mini Bag 100 ML IVPB ONE (05:02)
[2019-08-27] MEDS: *HR* Heparin 5,000 UNIT/ML VIAL SQ SCH ×4 (06:11→21:58)
[2019-08-27] MEDS ORDERED: Furosemide 20 MG TABLET PO PRN (07:41)
[2019-08-27] MEDS: Morphine Sulfate ER (12 HR) 15 MG TABLET.ER PO SCH ×2 (07:46→18:58)
[2019-08-27] MEDS: Aspirin Enteric Coated 81 MG Tablet PO SCH (07:46)
[2019-08-27] MEDS: MethylPREDNISolone 40 MG/ML VIAL IVP SCH ×2 (07:46→21:42)
[2019-08-27] MEDS: *HR* LORazepam 0.5 MG TABLET PO SCH ×2 (07:46→21:41)
[2019-08-27] MEDS: Sennosides/Docusate Sodium TABLET PO SCH ×2 (07:47→21:41)
[2019-08-27] MEDS: PARoxetine 30 MG TABLET PO SCH (07:47)
[2019-08-27] MEDS: DilTIAZem CD (24hr) 300 MG CAP.ER.24H PO SCH (07:47)
[2019-08-27] MEDS: Carbidopa/Levodopa 25/100 TABLET PO SCH ×2 (07:47→21:40)
[2019-08-27] MEDS: Furosemide 40 MG/4 ML VIAL IVP SCH (12:44)
[2019-08-27] MEDS: Melatonin 3 MG TABLET PO SCH (21:40)
[2019-08-27] MEDS: Vancomycin 1,250 MG/262.5 ML IV.SOLN IVPB SCH (21:57)
[2019-08-28] MEDS: Piperacillin/Tazobactam 3.375 GM in 0.9 % Sodium Chloride Mini Bag 100 ML IVPB SCH ×4 (00:07→23:55)
[2019-08-28 01:40] LABS: Basophils % 0.1 %; Hemoglobin 8.2 g/dL (12.9-16.9); Mean Corpuscular Volume 78.8 fL (83.0-100.0); Red Cell Distribution Width 21.1 % (11.5-14.5)
[2019-08-28 01:41] LABS: Hematocrit 31.5 % (37.5-50.1); Immature Granulocytes % 0.3 % (0-4); Lymphocytes # 0.5 K/mcL (0.6-4.6); Lymphocytes % 3.2 %; Mean Corpuscular Hemoglobin 20.5 pg (28.0-33.3); Monocytes % 6.7 %; Neutrophils # 12.9 K/mcL (1.6-8.9); Nucleated Red Blood Cells 0.3 /100 WBC (0); Platelet Count 351 K/mcL (140-400); Segmented Neutrophils % 89.7 %; White Blood Count 14.4 K/mcL (4.3-11.1)
[2019-08-28 01:42] LABS: VBG HCO3 40 mEq/L (21-27); VBG PCO2 63 mmHg (41-51); VBG PH 7.41 pH Units (7.32-7.42); VBG PO2 71 mmHg (25-50)
[2019-08-28 02:02] LABS: BUN/Creatinine Ratio 34 (6-26); Blood Urea Nitrogen 25 mg/dL (8-23); Calcium 9.5 mg/dL (8.6-10.3); Carbon Dioxide 44 mEq/L (23-29); Chloride 93 mEq/L (98-107); Glucose 120 mg/dL (70-105); Osmolality,Calculated 296 (280-300); Potassium 4.7 mEq/L (3.5-5.1); Sodium 140 mEq/L (136-145); eGFR For African Americans > 60 (> 60); eGFR For Non-African Americans > 60 (> 60)
[2019-08-28 02:11] LABS: Anisocytosis 1+ (Not Present); Hypochromasia Present (Not Present); Poikilocytosis 1+ (Not Present)
[2019-08-28 02:12] LABS: Platelet Estimate Normal (Normal)
[2019-08-28] MEDS: Albuterol 2.5 MG/3 ML NEBULIZER IH SCH ×5 (03:42→19:55)
[2019-08-28] MEDS: *HR* Heparin 5,000 UNIT/ML VIAL SQ SCH ×3 (06:12→21:10)
[2019-08-28] MEDS: Morphine Sulfate ER (12 HR) 15 MG TABLET.ER PO SCH ×2 (06:12→18:57)
[2019-08-28] MEDS ORDERED: Vancomycin 1,500 MG/265 ML IV.SOLN IVPB SCH (08:00)
[2019-08-28] MEDS: Furosemide 40 MG/4 ML VIAL IVP SCH (09:28)
[2019-08-28] MEDS: *HR* LORazepam 0.5 MG TABLET PO SCH ×2 (09:29→21:09)
[2019-08-28] MEDS: MethylPREDNISolone 40 MG/ML VIAL IVP SCH ×2 (09:29→21:10)
[2019-08-28] MEDS: Carbidopa/Levodopa 25/100 TABLET PO SCH ×2 (09:30→21:09)
[2019-08-28] MEDS: Aspirin Enteric Coated 81 MG Tablet PO SCH (09:30)
[2019-08-28] MEDS: Sennosides/Docusate Sodium TABLET PO SCH ×2 (09:30→21:09)
[2019-08-28] MEDS: DilTIAZem CD (24hr) 300 MG CAP.ER.24H PO SCH (09:30)
[2019-08-28] MEDS: PARoxetine 30 MG TABLET PO SCH (09:34)
[2019-08-28] MEDS: Vancomycin 1,250 MG/262.5 ML IV.SOLN IVPB SCH ×2 (13:29→21:10)
[2019-08-28] MEDS: Melatonin 3 MG TABLET PO SCH (21:09)
[2019-08-29] MEDS: Albuterol 2.5 MG/3 ML NEBULIZER IH SCH ×7 (00:01→23:41)
[2019-08-29 03:17] LABS: Hematocrit 32.2 % (37.5-50.1); Hemoglobin 8.2 g/dL (12.9-16.9); Mean Corpuscular HGB Conc 25.5 g/dL (31.6-35.5); Mean Corpuscular Hemoglobin 19.8 pg (28.0-33.3); Mean Corpuscular Volume 77.8 fL (83.0-100.0); Mean Platelet Volume 10.5 fL (9.4-12.4); Platelet Count 393 K/mcL (140-400); Red Blood Count 4.14 M/mcL (4.19-5.50); Red Cell Distribution Width 21.3 % (11.5-14.5); White Blood Count 12.5 K/mcL (4.3-11.1)
[2019-08-29 03:34] LABS: BUN/Creatinine Ratio 36 (6-26); Blood Urea Nitrogen 28 mg/dL (8-23); Calcium 9.1 mg/dL (8.6-10.3); Carbon Dioxide 39 mEq/L (23-29); Chloride 95 mEq/L (98-107); Glucose 132 mg/dL (70-105); Osmolality,Calculated 295 (280-300); Sodium 139 mEq/L (136-145); eGFR For African Americans > 60 (> 60); eGFR For Non-African Americans > 60 (> 60)
[2019-08-29 05:43] LABS: VBG HCO3 35 mEq/L (21-27); VBG PCO2 46 mmHg (41-51); VBG PH 7.49 pH Units (7.32-7.42); VBG PO2 176 mmHg (25-50)
[2019-08-29] MEDS: Morphine Sulfate ER (12 HR) 15 MG TABLET.ER PO SCH ×2 (06:18→17:24)
[2019-08-29] MEDS: *HR* Heparin 5,000 UNIT/ML VIAL SQ SCH ×3 (06:18→21:27)
[2019-08-29] MEDS: Piperacillin/Tazobactam 3.375 GM in 0.9 % Sodium Chloride Mini Bag 100 ML IVPB SCH ×2 (09:49→17:23)
[2019-08-29] MEDS: Sennosides/Docusate Sodium TABLET PO SCH ×2 (09:50→21:28)
[2019-08-29] MEDS: *HR* LORazepam 0.5 MG TABLET PO SCH ×2 (09:50→21:28)
[2019-08-29] MEDS: Carbidopa/Levodopa 25/100 TABLET PO SCH ×2 (09:50→21:28)
[2019-08-29] MEDS: Aspirin Enteric Coated 81 MG Tablet PO SCH (09:51)
[2019-08-29] MEDS: PARoxetine 30 MG TABLET PO SCH (09:51)
[2019-08-29] MEDS: DilTIAZem CD (24hr) 300 MG CAP.ER.24H PO SCH (09:51)
[2019-08-29] MEDS: MethylPREDNISolone 40 MG/ML VIAL IVP SCH ×2 (09:52→21:27)
[2019-08-29] MEDS: Furosemide 40 MG/4 ML VIAL IVP SCH (09:52)
[2019-08-29] MEDS: Vancomycin 1,250 MG/262.5 ML IV.SOLN IVPB SCH (11:28)
[2019-08-29] MEDS: Melatonin 3 MG TABLET PO SCH (21:28)
[2019-08-30] MEDS: Piperacillin/Tazobactam 3.375 GM in 0.9 % Sodium Chloride Mini Bag 100 ML IVPB SCH ×4 (00:16→23:51)
[2019-08-30] MEDS: Albuterol 2.5 MG/3 ML NEBULIZER IH SCH ×5 (04:13→20:21)
[2019-08-30 04:33] LABS: Basophils % 0.1 %; Nucleated Red Blood Cells 0.5 /100 WBC (0)
[2019-08-30 04:35] LABS: Hematocrit 33.3 % (37.5-50.1); Hemoglobin 8.7 g/dL (12.9-16.9); Immature Granulocytes % 0.7 % (0-4); Lymphocytes # 0.3 K/mcL (0.6-4.6); Lymphocytes % 2.2 %; Mean Corpuscular HGB Conc 26.1 g/dL (31.6-35.5); Mean Corpuscular Hemoglobin 20.3 pg (28.0-33.3); Mean Corpuscular Volume 77.6 fL (83.0-100.0); Mean Platelet Volume 10.3 fL (9.4-12.4); Monocytes # 0.6 K/mcL (0.0-1.3); Monocytes % 3.9 %; Neutrophils # 14.2 K/mcL (1.6-8.9); Platelet Count 376 K/mcL (140-400); Red Blood Count 4.29 M/mcL (4.19-5.50); Red Cell Distribution Width 21.2 % (11.5-14.5); Segmented Neutrophils % 93.1 %; White Blood Count 15.3 K/mcL (4.3-11.1)
[2019-08-30 04:52] LABS: BUN/Creatinine Ratio 38 (6-26); Blood Urea Nitrogen 36 mg/dL (8-23); Calcium 9.4 mg/dL (8.6-10.3); Carbon Dioxide 39 mEq/L (23-29); Chloride 95 mEq/L (98-107); Glucose 165 mg/dL (70-105); Osmolality,Calculated 296 (280-300); Potassium 3.9 mEq/L (3.5-5.1); Sodium 137 mEq/L (136-145); eGFR For African Americans > 60 (> 60); eGFR For Non-African Americans > 60 (> 60)
[2019-08-30 05:09] LABS: Anisocytosis 1+ (Not Present); Hypochromasia Present (Not Present); Macrocytosis Present (Not Present); Poikilocytosis 1+ (Not Present)
[2019-08-30 05:11] LABS: Platelet Estimate Normal (Normal)
[2019-08-30] MEDS: Morphine Sulfate ER (12 HR) 15 MG TABLET.ER PO SCH ×2 (06:13→17:12)
[2019-08-30] MEDS: *HR* Heparin 5,000 UNIT/ML VIAL SQ SCH ×3 (06:13→22:14)
[2019-08-30] MEDS: PARoxetine 30 MG TABLET PO SCH (08:57)
[2019-08-30] MEDS: *HR* LORazepam 0.5 MG TABLET PO SCH ×2 (08:57→19:56)
[2019-08-30] MEDS: DilTIAZem CD (24hr) 300 MG CAP.ER.24H PO SCH (08:57)
[2019-08-30] MEDS: Carbidopa/Levodopa 25/100 TABLET PO SCH ×2 (08:57→19:56)
[2019-08-30] MEDS: Aspirin Enteric Coated 81 MG Tablet PO SCH (08:57)
[2019-08-30] MEDS: predniSONE 20 MG TABLET PO SCH (08:57)
[2019-08-30] MEDS: Sennosides/Docusate Sodium TABLET PO SCH ×2 (08:57→19:56)
[2019-08-30] MEDS: Furosemide 40 MG/4 ML VIAL IVP SCH (08:58)
[2019-08-30] MEDS: Melatonin 3 MG TABLET PO SCH (19:56)
[2019-08-31] MEDS: Albuterol 2.5 MG/3 ML NEBULIZER IH SCH ×4 (00:28→11:06)
[2019-08-31] MEDS: Morphine Sulfate ER (12 HR) 15 MG TABLET.ER PO SCH (06:08)
[2019-08-31] MEDS: *HR* Heparin 5,000 UNIT/ML VIAL SQ SCH (06:08)
[2019-08-31] MEDS: Furosemide 40 MG/4 ML VIAL IVP SCH (08:10)
[2019-08-31] MEDS: Carbidopa/Levodopa 25/100 TABLET PO SCH (08:10)
[2019-08-31] MEDS: *HR* LORazepam 0.5 MG TABLET PO SCH (08:10)
[2019-08-31] MEDS: Sennosides/Docusate Sodium TABLET PO SCH (08:11)
[2019-08-31] MEDS: predniSONE 20 MG TABLET PO SCH (08:11)
[2019-08-31] MEDS: Aspirin Enteric Coated 81 MG Tablet PO SCH (08:11)
[2019-08-31] MEDS: PARoxetine 30 MG TABLET PO SCH (08:12)
[2019-08-31] MEDS: Piperacillin/Tazobactam 3.375 GM in 0.9 % Sodium Chloride Mini Bag 100 ML IVPB SCH (08:12)
[2019-08-31] MEDS: DilTIAZem CD (24hr) 300 MG CAP.ER.24H PO SCH (08:12)
[2019-08-31 10:53] VITALS: BP 167/74
== END 2019-08-31 13:09 | DRG 871 ==
LOC: 2ANU 00:12 → EMEROOARM 00:12 → SUATTDRO 04:10 → 2ANU 04:50
PROVIDERS: ADMIT Internal Medicine; ATTEND Internal Medicine